=== PATIENT | male | born 1940 | race Caucasian/White ===

== ENCOUNTER 2017-03-13 18:18 | Inpatient (IN) | payer MEDICARE ==
[2017-03-13 18:18] VITALS: BMI 32.3
--- NOTE | 2017-03-13 19:08 | C.PDOC ---
History Of Present Illness Patient is a 76 y/o male that presents to the ED for evaluation of episode of mid sternal chest pain at 14:00 today. Pt reports having similar chest pain 2 days ago which was resolved spontaneously. Pt states pain is constant, non- radiating, and non-excertional. As per family, patient's ultrasound and CT scan was done 2 days ago which showed patient has pancreatic mass, and states patient is scheduled for biopsy on 03/17/17. Family also noticed patient to be jaundiced for the last 4-5 days. Pt also reports some upper abdominal pain, but denies any n/v/d, fever, cough, shortness of breath, or fever. Pt denies taking any OTC meds for pain. Time Seen by Provider: 03/13/17 19:06 Chief Complaint (Nursing): Chest Pain History Per: Patient History/Exam Limitations: no limitations Onset/Duration Of Symptoms: Days (2) Current Symptoms Are (Timing): Still Present Quality: "Pain" Associated Symptoms: denies: Nausea, Dyspnea, Diaphoresis, Syncope Modifying Factors: None Exacerbating Factors: None Alleviating Factors: None Recent travel outside of the [place]: No Additional History Per: Patient Past Medical History Reviewed: Historical Data, Nursing Documentation, Vital Signs Vital Signs: Last Vital Signs Temp 98.1 F 03/21/17 15:12 Pulse 65 03/21/17 18:51 Resp 20 03/21/17 15:12 BP 129/74 03/21/17 18:51 Pulse Ox 97 03/21/17 15:12 - Medical History PMH: HTN Denies: Chronic Kidney Disease - [facility] Procedures CORONAR ARTERIOGR-2 CATH (07/14/13) ENDOSC POLYPECTOMY OF LG INTEST (03/07/15) ESOPHAGOGASTRODUODENOSCOPY [EGD] W/CLOSED BIOPSY (03/07/15) LEFT HEART CARDIAC CATH (07/14/13) LT HEART ANGIOCARDIOGRAM (07/14/13) Family History: States: Unknown Family Hx - Social History Hx Tobacco Use: No Hx Alcohol Use: Yes Hx Substance Use: No - Immunization History Hx Tetanus Toxoid Vaccination: No Hx Influenza Vaccination: No Hx Pneumococcal Vaccination: No Review Of Systems Except As Marked, All Systems Reviewed And Found Negative. Constitutional: Negative for: Fever, Chills Cardiovascular: Positive for: Chest Pain. Negative for: Palpitations, Edema, Light Headedness Respiratory: Negative for: Cough, Shortness of Breath, Sputum Gastrointestinal: Positive for: Abdominal Pain. Negative for: Nausea, Vomiting , Diarrhea, Constipation Genitourinary: Negative for: Dysuria, Frequency, Incontinence, Hematuria Musculoskeletal: Negative for: Back Pain Skin: Negative for: Rash Neurological: Negative for: Weakness, Numbness, Headache, Dizziness Physical Exam - Physical Exam Appears: Non-toxic, No Acute Distress Skin: Warm, Dry, Jaundice Head: Atraumatic, Normacephalic Eye(s): bilateral: Scleral Icterus Neck: Normal ROM, Supple Chest: Symmetrical Cardiovascular: Rhythm Regular, No Murmur Respiratory: Normal Breath Sounds, No Accessory Muscle Use, No Rales, No Rhonchi , No Wheezing Gastrointestinal/Abdominal: Soft, No Tenderness, No Guarding, No Rebound Extremity: Normal ROM, No Deformity Extremity: Bilateral: Atraumatic Neurological/Psych: Oriented x3, Normal Speech, Normal Cognition ED Course And Treatment - Laboratory Results Result Diagrams: 03/21/17 06:29 03/21/17 06:29 ECG: Interpreted By Me, Viewed By Me ECG Rhythm: Sinus Rhythm ECG Interpretation: No Acute Changes Rate From EC (bpm) O2 Sat by Pulse Oximetry: 99 (on RA) Pulse Ox Interpretation: Normal Progress Note: EKG, blood work, urinalysis, CXR ordered and reviewed. Disposition - Disposition Disposition: HOSPITALIZED Disposition Time: 20:18 Condition: STABLE - Clinical Impression Clinical Impression: Chest pain, Biliary obstruction - Scribe Statement The provider has reviewed the documentation as recorded by the Ricky Curiel All medical record entries made by the Jaydenibtessa were at my direction and personally dictated by me. I have reviewed the chart and agree that the record accurately reflects my personal performance of the history, physical exam, medical decision making, and the department course for this patient. I have also personally directed, reviewed, and agree with the discharge instructions and disposition.
[2017-03-13 19:52] LABS: HEMATOCRIT 37.7 % (35.0-51.0); MEAN CELL VOLUME 86.1 fL (80.0-94.0); MEAN CORPUSCULAR HEMOGLOBIN 29.1 pg (27.0-31.0); MEAN CORPUSCULAR HGB CONC 33.8 g/dL (33.0-37.0); MEAN PLATELET VOLUME 9.7 fL (7.2-11.7); PLATELET COUNT 250 K/uL (130-400); RED CELL DISTRIBUTION WIDTH 16.3 % (11.5-14.5); WHITE BLOOD COUNT 7.1 K/uL (4.8-10.8)
[2017-03-13 19:53] LABS: CHLORIDE 92 mmol/L (98-107)
[2017-03-13 19:54] LABS: POTASSIUM 3.8 mmol/L (3.6-5.2); SODIUM 130 mmol/L (132-148)
[2017-03-13 19:55] LABS: INR 1.8
[2017-03-13 19:56] LABS: AST/SGOT 79 U/L (17-59); BLOOD UREA NITROGEN 16 mg/dL (9-20); CARBON DIOXIDE 23 mmol/L (22-30); GFR AFRICAN-AMERICAN > 60; TOTAL PROTEIN 7.9 g/dL (6.3-8.3)
[2017-03-13 19:57] LABS: ALB/GLOB RATIO 0.8 (1.0-2.1); ALKALINE PHOSPHATASE 188 U/L (38-126); ALT/SGPT 87 U/L (21-72); CALCIUM 8.6 mg/dl (8.6-10.4)
[2017-03-13 20:00] LABS: GLUCOSE,RANDOM 409 mg/dL (75-110)
[2017-03-13] MEDS ORDERED: Sodium Chloride 0.9% 1,000 ML IV ONE (20:09)
[2017-03-13 20:11] LABS: BILIRUBIN,TOTAL 27.3 mg/dL (0.2-1.3)
[2017-03-13 20:49] LABS: RBC URINE 1 /hpf (0-3); URINE BACTERIA RARE (<OCC); URINE BILIRUBIN 2+ (NEGATIVE); URINE BLOOD NEGATIVE (NEGATIVE); URINE COLOR Amber (YELLOW); URINE GLUCOSE (UA) 3+ mg/dL (Normal); URINE KETONE NEGATIVE (NEGATIVE); URINE LEUKOCYTE ESTERASE NEG Leu/uL (Negative); URINE PROTEIN NEGATIVE (NEGATIVE); WBC URINE 2 /hpf (0-5)
[2017-03-13 20:59] LABS: BASOPHIL 1 % (0-2); EOSINOPHIL 1 % (0-4); NEUTROPHIL 79 % (50-75); PLATELET CLUMPS PRESENT; TOTAL CELLS COUNTED 100
--- NOTE | 2017-03-13 22:31 | CP.PCM.CON ---
History of Present Illness - History of Present Illness History of Present Illness: 76 Male with Ca/Jaundice planned for Whipples surgery at [facility] Stress test and ECHO as a part of pre op cardiac work up Orders written Past Patient History - Past Medical History & Family History Past Medical History?: Yes - Past Social History Smoking Status: Never Smoked - CARDIAC Hx Hypertension: Yes - PULMONARY Hx Respiratory Disorders: No - NEUROLOGICAL Hx Neurological Disorder: Yes HX Cerebrovascular Accident: Yes (MILD, NO RESIDUAL EFFECTS) - HEENT Hx HEENT Problems: No - RENAL Hx Chronic Kidney Disease: No - ENDOCRINE/METABOLIC Hx Endocrine Disorders: No - HEMATOLOGICAL/ONCOLOGICAL Hx Blood Disorders: No - INTEGUMENTARY Hx Dermatological Problems: No - MUSCULOSKELETAL/RHEUMATOLOGICAL Hx Musculoskeletal Disorders: No - GASTROINTESTINAL Hx Gastrointestinal Disorders: Yes Hx Ulcer: Yes Other/Comment: Pancreatic mass as per CT abdomen 03/11/2017 - GENITOURINARY/GYNECOLOGICAL Hx Genitourinary Disorders: No - PSYCHIATRIC Hx Substance Use: No - SURGICAL HISTORY Hx Surgeries: Yes Hx Herniorrhaphy: Yes (LEFT INGUINAL) - ANESTHESIA Hx Anesthesia: Yes Hx Anesthesia Reactions: No Hx Malignant Hyperthermia: No Meds Allergies/Adverse Reactions: Allergies Allergy/AdvReac Type Severity Reaction Status Date / Time No Known Allergies Allergy Verified 03/13/17 18:34 - Medications Medications: Current Medications Amlodipine Besylate (Norvasc) 10 mg PO DAILY [facility] Enoxaparin Sodium (Lovenox) 40 mg SC DAILY [facility] Sodium Chloride (Sodium Chloride 0.9%) 1,000 mls @ 100 mls/hr IV .Q10H [facility] Insulin Aspart (Novolog) 0 unit SC ACHS [facility] PRN Reason: Protocol Labetalol HCl (Trandate) 200 mg PO BID [facility] Multivitamins (Hexavitamin) 1 tab PO DAILY [facility] Pantoprazole Sodium (Protonix Ec Tab) 40 mg PO DAILY [facility] Phytonadione (Vitamin K Tab) 5 mg PO DAILY [facility] Stop: 03/17/17 23:59 Results - Vital Signs Recent Vital Signs: Last Vital Signs Temp 98 F 03/13/17 22:19 Pulse 86 03/13/17 22:19 Resp 16 03/13/17 22:19 BP 161/100 H 03/13/17 22:19 Pulse Ox 99 03/13/17 22:19 - Labs Result Diagrams: 03/13/17 19:39 03/13/17 19:39 Labs: Laboratory Results - last 24 hr 03/13/17 20:36 Urine Color Sonya Urine Clarity Clear Urine pH 6.0 Ur Specific [place] 1.015 Urine Protein Negative Urine Glucose (UA) 3+ H Urine Ketones Negative Urine Blood Negative Urine Nitrate Negative Urine Bilirubin 2+ H Urine Urobilinogen 2.0 Ur Leukocyte Esterase Neg Urine WBC (Auto) 2 Urine RBC (Auto) 1 Urine Bacteria Rare
[2017-03-13] MEDS: Sodium Chloride 0.9% 1,000 ML IV SCH (23:10)
--- NOTE | 2017-03-13 23:11 | CP.PCM.HP ---
History of Present Illness - History of Present Illness History of Present Illness: Patient is a 76 y/o male that presents to the ED for evaluation of episode of mid sternal chest pain at 14:00 today. Pt reports having similar chest pain 2 days ago which was resolved spontaneously. Pt states pain is constant, non- radiating, and non-excertional. As per family, patient's ultrasound and CT scan was done 2 days ago which showed patient has pancreatic mass, and states patient is scheduled for biopsy on 03/17/17. Family also noticed patient to be jaundiced for the last 4-5 days. Pt also reports some upper abdominal pain, but denies any n/v/d, fever, cough, shortness of breath, or fever. Pt denies taking any OTC meds for pain. Present on Admission - Present on Admission Any Indicators Present on Admission: Yes Past Patient History - Past Medical History & Family History Past Medical History?: Yes - Past Social History Smoking Status: Never Smoked - CARDIAC Hx Hypertension: Yes - PULMONARY Hx Respiratory Disorders: No - NEUROLOGICAL Hx Neurological Disorder: Yes HX Cerebrovascular Accident: Yes (MILD, NO RESIDUAL EFFECTS) - HEENT Hx HEENT Problems: No - RENAL Hx Chronic Kidney Disease: No - ENDOCRINE/METABOLIC Hx Endocrine Disorders: No - HEMATOLOGICAL/ONCOLOGICAL Hx Blood Disorders: No - INTEGUMENTARY Hx Dermatological Problems: No - MUSCULOSKELETAL/RHEUMATOLOGICAL Hx Musculoskeletal Disorders: No - GASTROINTESTINAL Hx Gastrointestinal Disorders: Yes Hx Ulcer: Yes Other/Comment: Pancreatic mass as per CT abdomen 03/11/2017 - GENITOURINARY/GYNECOLOGICAL Hx Genitourinary Disorders: No - PSYCHIATRIC Hx Substance Use: No - SURGICAL HISTORY Hx Surgeries: Yes Hx Herniorrhaphy: Yes (LEFT INGUINAL) - ANESTHESIA Hx Anesthesia: Yes Hx Anesthesia Reactions: No Hx Malignant Hyperthermia: No Meds Allergies/Adverse Reactions: Allergies Allergy/AdvReac Type Severity Reaction Status Date / Time No Known Allergies Allergy Verified 03/13/17 18:34 Results - Vital Signs Recent Vital Signs: Last Vital Signs Temp 98 F 03/13/17 22:19 Pulse 86 03/13/17 22:19 Resp 16 03/13/17 22:19 BP 161/100 H 03/13/17 22:19 Pulse Ox 100 03/13/17 22:25 - Labs Result Diagrams: 03/17/17 05:56 03/17/17 05:56 Labs: Laboratory Results - last 24 hr 03/13/17 20:36 Urine Color Sonya Urine Clarity Clear Urine pH 6.0 Ur Specific [place] 1.015 Urine Protein Negative Urine Glucose (UA) 3+ H Urine Ketones Negative Urine Blood Negative Urine Nitrate Negative Urine Bilirubin 2+ H Urine Urobilinogen 2.0 Ur Leukocyte Esterase Neg Urine WBC (Auto) 2 Urine RBC (Auto) 1 Urine Bacteria Rare
[2017-03-14 02:01] LABS: BILIRUBIN,DIRECT 23.8 mg/dL (0.0-0.4)
[2017-03-14 02:27] LABS: CA 19-9 > 5000 U/mL (0-37)
[2017-03-14] MEDS: (Novolog) Insulin Aspart, Recombinant 100 u/ml 10 ml vial SC SCH ×4 (07:30→21:07)
--- NOTE | 2017-03-14 07:48 | RAD ---
HISTORY: Chest pain COMPARISON: 05/04/2013 FINDINGS: LUNGS: No active pulmonary disease. PLEURA: No significant pleural effusion identified, no pneumothorax apparent. CARDIOVASCULAR: Normal. OSSEOUS STRUCTURES: No significant abnormalities. VISUALIZED UPPER ABDOMEN: Normal. OTHER FINDINGS: None. IMPRESSION: No active disease.
[2017-03-14] MEDS: Sodium Chloride 0.9% 1,000 ML IV SCH ×2 (08:15→21:07)
[2017-03-14] MEDS: Multiple Vitamins Tab PO SCH (10:17)
[2017-03-14] MEDS: Pantoprazole 40 mg EC Tab PO SCH (10:17)
[2017-03-14] MEDS: Phytonadione 2.5 MG/0.5 TAB TAB PO SCH (10:18)
[2017-03-14] MEDS: Enoxaparin 40 mg Syringe SC SCH (10:18)
--- NOTE | 2017-03-14 11:02 | CARD ---
APPROVED REPORT EKG Measurement Heart [id number] <Conclusion> Normal sinus rhythm Normal ECG
--- NOTE | 2017-03-14 15:14 | NM ---
PROCEDURE: Whole Body Bone Scan HISTORY: Pancreatic Mass COMPARISON: None available. TECHNIQUE: Following administration of 23.3 miCu of Tc MDP multiplanar whole body images were obtained. FINDINGS: Evidence for bony metastatic disease: None. Degenerative uptake: None. Physiologic uptake: Normal physiologic activity in the kidneys. Other findings: Asymmetric uptake in the right hemipelvis compared to the left the overall appearance suggests Paget disease. IMPRESSION: No evidence of bony metastatic disease.
--- NOTE | 2017-03-14 16:27 | CP.PCM.CON ---
<Amarilis Nieto - Last Filed: 03/14/17 16:27> History of Present Illness - History of Present Illness History of Present Illness: GI Fellow PGY4 Consult Note This is a 76yM with a pmhx of HTN, DM, Gastric ulcer/gastritis H.pylori positive 2014. Pt pw co chest pain and abdominal pain. Pt reports abdominal discomfort for 2 weeks but no abdominal pain, no F/C. Also pt noticed he was jaundiced and getting worse over 2weeks. Pt reports unintentional 30 pound weight loss over a few months with no appetite. Pt's mother from pancreatic cancer. Pt denies tobacco use and reprts that he drank 4 cans of bee daily for many years and quit years ago. Abdominal Us and CT scan was ordered by PCP showing intrahepatic duct dilation, CBD 13mm, pancreatic head mass 4.5x2.9 cm and fatty liver. Pt's last EGD and Colonoscopy was 03/07/2015 showing gastritis, gastric ulcer Hpylori positive and tubulovillous adenoma. ROS:A 12 point ROS was obtained and was negative except as above. PsHx: Hernia repair PmHx: As stated in HPI FHx: +pancreatic cancer in mother ho SHx: never smoked, drank 4 cans of beer daily for years, quit many years ago Past Patient History - Past Medical History & Family History Past Medical History?: Yes - Past Social History Smoking Status: Never Smoked - CARDIAC Hx Hypertension: Yes - PULMONARY Hx Respiratory Disorders: No - NEUROLOGICAL HX Cerebrovascular Accident: Yes (MILD, NO RESIDUAL EFFECTS) - HEENT Hx HEENT Problems: No - RENAL Hx Chronic Kidney Disease: No - ENDOCRINE/METABOLIC Hx Endocrine Disorders: No - HEMATOLOGICAL/ONCOLOGICAL Hx Blood Disorders: No - INTEGUMENTARY Hx Dermatological Problems: No - MUSCULOSKELETAL/RHEUMATOLOGICAL Hx Musculoskeletal Disorders: No Hx Falls: No - GASTROINTESTINAL Hx Gastrointestinal Disorders: Yes Hx Ulcer: Yes Other/Comment: Pancreatic mass as per CT abdomen 03/11/2017 - GENITOURINARY/GYNECOLOGICAL Hx Genitourinary Disorders: No - PSYCHIATRIC Hx Substance Use: No - SURGICAL HISTORY Hx Surgeries: Yes Hx Herniorrhaphy: Yes (LEFT INGUINAL) - ANESTHESIA Hx Anesthesia: Yes Hx Anesthesia Reactions: No Hx Malignant Hyperthermia: No Meds Allergies/Adverse Reactions: Allergies Allergy/AdvReac Type Severity Reaction Status Date / Time No Known Allergies Allergy Verified 03/13/17 18:34 - Medications Medications: Current Medications Amlodipine Besylate (Norvasc) 10 mg PO DAILY [facility] Last Admin: 03/14/17 10:18 Dose: 10 mg Enoxaparin Sodium (Lovenox) 40 mg SC DAILY [facility] Last Admin: 03/14/17 10:18 Dose: 40 mg Sodium Chloride (Sodium Chloride 0.9%) 1,000 mls @ 100 mls/hr IV .Q10H [facility] Last Admin: 03/14/17 08:15 Dose: Not Given Insulin Aspart (Novolog) 0 unit SC [facility] PRN Reason: Protocol Last Admin: 03/14/17 13:24 Dose: 5 unit Labetalol HCl (Trandate) 200 mg PO BID [facility] Last Admin: 03/14/17 10:17 Dose: 200 mg Multivitamins (Hexavitamin) 1 tab PO DAILY [facility] Last Admin: 03/14/17 10:17 Dose: 1 tab Pantoprazole Sodium (Protonix Ec Tab) 40 mg PO DAILY [facility] Last Admin: 03/14/17 10:17 Dose: 40 mg Phytonadione (Vitamin K Tab) 5 mg PO DAILY [facility] Stop: 03/17/17 23:59 Last Admin: 03/14/17 10:18 Dose: 5 mg Pneumococcal Polyvalent Vaccine (Pneumovax 23 Vaccine) 0.5 ml IM .ONCE ONE Stop: 03/16/17 10:01 Physical Exam - Constitutional Appears: Well, Non-toxic, No Acute Distress Additional comments: Jaundiced - Head Exam Head Exam: ATRAUMATIC, NORMAL INSPECTION, NORMOCEPHALIC - Eye Exam Eye Exam: EOMI, PERRL, Scleral icterus Pupil Exam: PERRL - ENT Exam ENT Exam: Mucous Membranes Moist, Normal Exam - Neck Exam Neck exam: Positive for: Full Rom, Normal Inspection - Respiratory Exam Respiratory Exam: Clear to Auscultation Bilateral, NORMAL BREATHING PATTERN - Cardiovascular Exam Cardiovascular Exam: RRR, +S1, +S2 - GI/Abdominal Exam GI & Abdominal Exam: Normal Bowel Sounds, Soft. absent: Guarding, Organomegaly , Rebound, Tenderness - Rectal Exam Rectal Exam: Deferred - Extremities Exam Extremities exam: Positive for: full ROM - Neurological Exam Neurological exam: Alert - Psychiatric Exam Psychiatric exam: Normal Affect, Normal Mood - Skin Skin Exam: Dry, Intact, Warm Additional comments: Jaundice Results - Vital Signs Recent Vital Signs: Last Vital Signs Temp 98.0 F 03/14/17 15:12 Pulse 60 03/14/17 15:12 Resp 20 03/14/17 15:12 BP 135/82 03/14/17 15:12 Pulse Ox 97 03/14/17 15:12 - Labs Result Diagrams: 03/13/17 19:39 03/13/17 19:39 Labs: Laboratory Results - last 24 hr 03/13/17 03/13/17 03/14/17 20:36 23:22 00:34 POC Glucose (mg/dL) 235 H Hemoglobin A1c Direct Bilirubin 23.8 H Total Creatine Kinase CK-MB (Mass) Troponin I, Quant CA 19-9 Antigen > 5000 H Urine Color Sonya Urine Clarity Clear Urine pH 6.0 Ur Specific [place] 1.015 Urine Protein Negative Urine Glucose (UA) 3+ H Urine Ketones Negative Urine Blood Negative Urine Nitrate Negative Urine Bilirubin 2+ H Urine Urobilinogen 2.0 Ur Leukocyte Esterase Neg Urine WBC (Auto) 2 Urine RBC (Auto) 1 Urine Bacteria Rare 03/14/17 03/14/17 03/14/17 00:34 06:12 08:34 POC Glucose (mg/dL) 180 H Hemoglobin A1c 11.4 H Direct Bilirubin Total Creatine Kinase 37 L CK-MB (Mass) 0.56 Troponin I, Quant < 0.0120 CA 19-9 Antigen Urine Color Urine Clarity Urine pH Ur Specific [place] Urine Protein Urine Glucose (UA) Urine Ketones Urine Blood Urine Nitrate Urine Bilirubin Urine Urobilinogen Ur Leukocyte Esterase Urine WBC (Auto) Urine RBC (Auto) Urine Bacteria 03/14/17 11:41 POC Glucose (mg/dL) 372 H Hemoglobin A1c Direct Bilirubin Total Creatine Kinase CK-MB (Mass) Troponin I, Quant CA 19-9 Antigen Urine Color Urine Clarity Urine pH Ur Specific [place] Urine Protein Urine Glucose (UA) Urine Ketones Urine Blood Urine Nitrate Urine Bilirubin Urine Urobilinogen Ur Leukocyte Esterase Urine WBC (Auto) Urine RBC (Auto) Urine Bacteria Assessment & Plan - Assessment and Plan (Free Text) Assessment: This is a 76yM with pmhx HTN, DM, gastric ulcer pw co abdominal bloating and jaundice 1. Pancreatic Head Mass 2. Painless Jaundice 3. Hyperbilirubinemia 4. Dilated CBD 5. Hx of Gastric ulcer, Hpylori 6. HTN 7. DM Plan: -Panreatic head mass with painless jaundice concern for malignancy, CA 19-9>5000 , TBili 27-plan for ERCP/EUS Friday03/17/17 -Will give Vit K 5mg po daily till procedure, INR 1.8 -Monitor for any signs of fever or leukocytosis, no signs of active infection at this time -Continue supportive care, plan discussed with pt's daughter - <Benito Choe - Last Filed: 03/14/17 18:51> Meds - Medications Medications: Current Medications Amlodipine Besylate (Norvasc) 10 mg PO DAILY [facility] Last Admin: 03/14/17 10:18 Dose: 10 mg Diphenhydramine HCl (Benadryl) 25 mg PO Q6 PRN PRN Reason: Itching / Pruritus Last Admin: 03/14/17 17:19 Dose: 25 mg Enoxaparin Sodium (Lovenox) 40 mg SC DAILY [facility] Last Admin: 03/14/17 10:18 Dose: 40 mg Sodium Chloride (Sodium Chloride 0.9%) 1,000 mls @ 100 mls/hr IV .Q10H [facility] Last Admin: 03/14/17 08:15 Dose: Not Given Insulin Aspart (Novolog) 0 unit SC ACHS [facility] PRN Reason: Protocol Last Admin: 03/14/17 17:21 Dose: 5 unit Labetalol HCl (Trandate) 200 mg PO BID [facility] Last Admin: 03/14/17 17:19 Dose: 200 mg Multivitamins (Hexavitamin) 1 tab PO DAILY [facility] Last Admin: 03/14/17 10:17 Dose: 1 tab Pantoprazole Sodium (Protonix Ec Tab) 40 mg PO DAILY [facility] Last Admin: 03/14/17 10:17 Dose: 40 mg Phytonadione (Vitamin K Tab) 5 mg PO DAILY [facility] Stop: 03/17/17 23:59 Last Admin: 03/14/17 10:18 Dose: 5 mg Pneumococcal Polyvalent Vaccine (Pneumovax 23 Vaccine) 0.5 ml IM .ONCE ONE Stop: 03/16/17 10:01 Results - Vital Signs Recent Vital Signs: Last Vital Signs Temp 98.0 F 03/14/17 15:12 Pulse 57 L 03/14/17 15:40 Resp 20 03/14/17 15:12 BP 135/82 03/14/17 15:12 Pulse Ox 97 03/14/17 15:12 - Labs Result Diagrams: 03/13/17 19:39 03/13/17 19:39 Labs: Laboratory Results - last 24 hr 03/13/17 03/13/17 03/14/17 20:36 23:22 00:34 POC Glucose (mg/dL) 235 H Hemoglobin A1c Direct Bilirubin 23.8 H Total Creatine Kinase CK-MB (Mass) Troponin I, Quant [place] 19-9 Antigen > 5000 H Urine Color Sonya Urine Clarity Clear Urine pH 6.0 Ur Specific [place] 1.015 Urine Protein Negative Urine Glucose (UA) 3+ H Urine Ketones Negative Urine Blood Negative Urine Nitrate Negative Urine Bilirubin 2+ H Urine Urobilinogen 2.0 Ur Leukocyte Esterase Neg Urine WBC (Auto) 2 Urine RBC (Auto) 1 Urine Bacteria Rare 03/14/17 03/14/17 03/14/17 00:34 06:12 08:34 POC Glucose (mg/dL) 180 H Hemoglobin A1c 11.4 H Direct Bilirubin Total Creatine Kinase 37 L CK-MB (Mass) 0.56 Troponin I, Quant < 0.0120 CA 19-9 Antigen Urine Color Urine Clarity Urine pH Ur Specific [place] Urine Protein Urine Glucose (UA) Urine Ketones Urine Blood Urine Nitrate Urine Bilirubin Urine Urobilinogen Ur Leukocyte Esterase Urine WBC (Auto) Urine RBC (Auto) Urine Bacteria 03/14/17 03/14/17 03/14/17 11:41 16:36 17:24 POC Glucose (mg/dL) 372 H 352 H Hemoglobin A1c Direct Bilirubin Total Creatine Kinase 29 L CK-MB (Mass) 0.79 Troponin I, Quant < 0.0120 CA 19-9 Antigen Urine Color Urine Clarity Urine pH Ur Specific [place] Urine Protein Urine Glucose (UA) Urine Ketones Urine Blood Urine Nitrate Urine Bilirubin Urine Urobilinogen Ur Leukocyte Esterase Urine WBC (Auto) Urine RBC (Auto) Urine Bacteria Attending/Attestation - Attestation I have personally seen and examined this patient.: Yes I have fully participated in the care of the patient.: Yes I have reviewed all pertinent clinical information: Yes Notes (Text): 03/14/17 18:46 76 year old male with h/o DM, HTN, h/o PUD admitted with jaundice, found to have pancreatic head mass and biliary obstruction. 1. Pancreatic mass 2. Biliary obstruction Plan: -overall clinical picture suggestive of likely locally advanced pancreatic adenocarcinoma -recommend EUS and ERCP for biopsy and stent placement -will plan for procedure friday morning -in the meantime, he needs medical optimization with management of significant hyperglycemia (>400) and reversal of INR (1.8) with vitamin K -his elevated INR is likely due to cholestasis and vitamin k deficiency -diet as tolerated in the meantime -pain control as needed -no signs of cholangitis at this time
--- NOTE | 2017-03-14 23:04 | CP.PCM.PN ---
Subjective - Date & Time of Evaluation Date of Evaluation: 03/14/17 Time of Evaluation: 18:00 - Subjective Subjective: Patient seen and evaluated Comfortable For stress test Friday Objective - Vital Signs/Intake and Output Vital Signs (last 24 hours): Temp Pulse Resp BP Pulse Ox 98.0 F 57 L 20 135/82 97 03/14/17 15:12 03/14/17 15:40 03/14/17 15:12 03/14/17 15:12 03/14/17 15:12 Intake and Output: 03/14/17 03/15/17 18:59 06:59 Intake Total 300 Balance 300 - Medications Medications: Current Medications Amlodipine Besylate (Norvasc) 10 mg PO DAILY [facility] Last Admin: 03/14/17 10:18 Dose: 10 mg Diphenhydramine HCl (Benadryl) 25 mg PO Q6 PRN PRN Reason: Itching / Pruritus Last Admin: 03/14/17 17:19 Dose: 25 mg Enoxaparin Sodium (Lovenox) 40 mg SC DAILY [facility] Last Admin: 03/14/17 10:18 Dose: 40 mg Sodium Chloride (Sodium Chloride 0.9%) 1,000 mls @ 100 mls/hr IV .Q10H [facility] Last Admin: 03/14/17 21:07 Dose: Not Given Insulin Aspart (Novolog) 0 unit SC ACHS [facility] PRN Reason: Protocol Last Admin: 03/14/17 21:07 Dose: Not Given Labetalol HCl (Trandate) 200 mg PO BID [facility] Last Admin: 03/14/17 17:19 Dose: 200 mg Multivitamins (Hexavitamin) 1 tab PO DAILY [facility] Last Admin: 03/14/17 10:17 Dose: 1 tab Pantoprazole Sodium (Protonix Ec Tab) 40 mg PO DAILY [facility] Last Admin: 03/14/17 10:17 Dose: 40 mg Phytonadione (Vitamin K Tab) 5 mg PO DAILY [facility] Stop: 03/17/17 23:59 Last Admin: 03/14/17 10:18 Dose: 5 mg Pneumococcal Polyvalent Vaccine (Pneumovax 23 Vaccine) 0.5 ml IM .ONCE ONE Stop: 03/16/17 10:01 - Labs Labs: PT 20.1 SECONDS (9.7-12.2) H 03/13/17 19:39 INR 1.8 03/13/17 19:39 APTT 37 SECONDS (21-34) H 03/13/17 19:39
--- NOTE | 2017-03-14 23:09 | CP.PCM.PN ---
Subjective - Date & Time of Evaluation Date of Evaluation: 03/14/17 Time of Evaluation: 20:50 - Subjective Subjective: Pt seen and examined Objective - Vital Signs/Intake and Output Vital Signs (last 24 hours): Temp Pulse Resp BP Pulse Ox 98.0 F 57 L 20 135/82 97 03/14/17 15:12 03/14/17 15:40 03/14/17 15:12 03/14/17 15:12 03/14/17 15:12 Intake and Output: 03/14/17 03/15/17 18:59 06:59 Intake Total 300 Balance 300 - Medications Medications: Current Medications Amlodipine Besylate (Norvasc) 10 mg PO DAILY [facility] Last Admin: 03/14/17 10:18 Dose: 10 mg Diphenhydramine HCl (Benadryl) 25 mg PO Q6 PRN PRN Reason: Itching / Pruritus Last Admin: 03/14/17 17:19 Dose: 25 mg Enoxaparin Sodium (Lovenox) 40 mg SC DAILY [facility] Last Admin: 03/14/17 10:18 Dose: 40 mg Sodium Chloride (Sodium Chloride 0.9%) 1,000 mls @ 100 mls/hr IV .Q10H [facility] Last Admin: 03/14/17 21:07 Dose: Not Given Insulin Aspart (Novolog) 0 unit SC ACHS [facility] PRN Reason: Protocol Last Admin: 03/14/17 21:07 Dose: Not Given Labetalol HCl (Trandate) 200 mg PO BID [facility] Last Admin: 03/14/17 17:19 Dose: 200 mg Multivitamins (Hexavitamin) 1 tab PO DAILY [facility] Last Admin: 03/14/17 10:17 Dose: 1 tab Pantoprazole Sodium (Protonix Ec Tab) 40 mg PO DAILY [facility] Last Admin: 03/14/17 10:17 Dose: 40 mg Phytonadione (Vitamin K Tab) 5 mg PO DAILY [facility] Stop: 03/17/17 23:59 Last Admin: 03/14/17 10:18 Dose: 5 mg Pneumococcal Polyvalent Vaccine (Pneumovax 23 Vaccine) 0.5 ml IM .ONCE ONE Stop: 03/16/17 10:01 - Labs Labs: PT 20.1 SECONDS (9.7-12.2) H 03/13/17 19:39 INR 1.8 03/13/17 19:39 APTT 37 SECONDS (21-34) H 03/13/17 19:39
[2017-03-15] MEDS: Sodium Chloride 0.9% 1,000 ML IV SCH ×2 (04:37→12:15)
[2017-03-15] MEDS: (Novolog) Insulin Aspart, Recombinant 100 u/ml 10 ml vial SC SCH ×4 (07:30→21:38)
[2017-03-15 07:42] LABS: HEMATOCRIT 35.9 % (35.0-51.0); MEAN CELL VOLUME 85.6 fL (80.0-94.0); MEAN CORPUSCULAR HEMOGLOBIN 29.3 pg (27.0-31.0); MEAN CORPUSCULAR HGB CONC 34.3 g/dL (33.0-37.0); MEAN PLATELET VOLUME 9.9 fL (7.2-11.7); RED CELL DISTRIBUTION WIDTH 16.5 % (11.5-14.5); WHITE BLOOD COUNT 8.8 K/uL (4.8-10.8)
[2017-03-15 08:28] LABS: CHLORIDE 102 mmol/L (98-107); SODIUM 139 mmol/L (132-148)
[2017-03-15 08:30] LABS: ALB/GLOB RATIO 0.7 (1.0-2.1); AST/SGOT 76 U/L (17-59); BILIRUBIN,TOTAL 25.5 mg/dL (0.2-1.3); CARBON DIOXIDE 19 mmol/L (22-30); GFR AFRICAN-AMERICAN > 60; TOTAL PROTEIN 7.1 g/dL (6.3-8.3)
[2017-03-15 08:31] LABS: ALKALINE PHOSPHATASE 163 U/L (38-126); ALT/SGPT 86 U/L (21-72); BLOOD UREA NITROGEN 15 mg/dL (9-20); CALCIUM 8.7 mg/dl (8.6-10.4); GLUCOSE,RANDOM 120 mg/dL (75-110)
[2017-03-15 08:33] LABS: POTASSIUM 3.4 mmol/L (3.6-5.2)
[2017-03-15] MEDS: Pantoprazole 40 mg EC Tab PO SCH (09:17)
[2017-03-15] MEDS: Enoxaparin 40 mg Syringe SC SCH (09:18)
[2017-03-15] MEDS: Multiple Vitamins Tab PO SCH (09:18)
[2017-03-15] MEDS: Phytonadione 2.5 MG/0.5 TAB TAB PO SCH (09:19)
--- NOTE | 2017-03-15 12:10 | CP.PCM.PN ---
<Jace Mcmillan - Last Filed: 03/15/17 12:06> Subjective - Date & Time of Evaluation Date of Evaluation: 03/15/17 Time of Evaluation: 10:50 - Subjective Subjective: PGY5 GI Fellow Progress Note Patient seen and examined bedside this morning. The patient has no new complaints at this time. Denies any nausea, vomiting, abdominal pain, fever, chills. No events overnight. 12 system ROS performed and negative except where stated. Objective - Vital Signs/Intake and Output Vital Signs (last 24 hours): Temp Pulse Resp BP Pulse Ox 98.1 F 59 L 18 122/70 100 03/15/17 07:05 03/15/17 07:30 03/15/17 07:05 03/15/17 07:05 03/15/17 07:05 - Medications Medications: Current Medications Amlodipine Besylate (Norvasc) 10 mg PO DAILY [facility] Last Admin: 03/15/17 09:17 Dose: 10 mg Diphenhydramine HCl (Benadryl) 25 mg PO Q6 PRN PRN Reason: Itching / Pruritus Last Admin: 03/14/17 17:19 Dose: 25 mg Enoxaparin Sodium (Lovenox) 40 mg SC DAILY [facility] Last Admin: 03/15/17 09:18 Dose: 40 mg Sodium Chloride (Sodium Chloride 0.9%) 1,000 mls @ 100 mls/hr IV .Q10H [facility] Last Admin: 03/15/17 04:37 Dose: Not Given Insulin Aspart (Novolog) 0 unit SC ACHS [facility] PRN Reason: Protocol Last Admin: 03/15/17 07:30 Dose: Not Given Labetalol HCl (Trandate) 200 mg PO BID [facility] Last Admin: 03/15/17 09:18 Dose: 200 mg Multivitamins (Hexavitamin) 1 tab PO DAILY [facility] Last Admin: 03/15/17 09:18 Dose: 1 tab Pantoprazole Sodium (Protonix Ec Tab) 40 mg PO DAILY [facility] Last Admin: 03/15/17 09:17 Dose: 40 mg Phytonadione (Vitamin K Tab) 5 mg PO DAILY [facility] Stop: 03/17/17 23:59 Last Admin: 03/15/17 09:19 Dose: 5 mg Pneumococcal Polyvalent Vaccine (Pneumovax 23 Vaccine) 0.5 ml IM .ONCE ONE Stop: 03/16/17 10:01 - Labs Labs: 03/15/17 07:28 03/15/17 07:28 PT 20.1 SECONDS (9.7-12.2) H 03/13/17 19:39 INR 1.8 03/13/17 19:39 APTT 37 SECONDS (21-34) H 03/13/17 19:39 - Constitutional Appears: Non-toxic, No Acute Distress - Eye Exam Eye Exam: EOMI, PERRL, Scleral icterus - ENT Exam ENT Exam: Mucous Membranes Moist - Respiratory Exam Respiratory Exam: Clear to Ausculation Bilateral. absent: Rales, Rhonchi, Wheezes - Cardiovascular Exam Cardiovascular Exam: RRR, +S1, +S2 - GI/Abdominal Exam GI & Abdominal Exam: Soft, Normal Bowel Sounds. absent: Distended, Firm, Guarding, Rigid, Tenderness, Organomegaly - Extremities Exam Extremities Exam: Normal Inspection. 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 -Pancreatic mass -Biliary obstruction 2/2 above Plan: -Current condition highly suspicious for pancreatic cancer with biliary obstruction -Will plan for EUS/ERCP on Friday with biopsy/stent placement at that time -Continue with daily Vit K, consider IV infusion if INR unchange with PO; likely a result of cholestasis and poor Vit K absorption -Analgesia/antiemetics PRN per primary service -Diet as tolerated <Karen Orta MD - Last Filed: 03/15/17 15:46> Objective - Vital Signs/Intake and Output Vital Signs (last 24 hours): Temp Pulse Resp BP Pulse Ox 98.1 F 59 L 18 122/70 100 03/15/17 07:05 03/15/17 07:30 03/15/17 07:05 03/15/17 07:05 03/15/17 07:05 - Medications Medications: Current Medications Amlodipine Besylate (Norvasc) 10 mg PO DAILY [facility] Last Admin: 03/15/17 09:17 Dose: 10 mg Diphenhydramine HCl (Benadryl) 25 mg PO Q6 PRN PRN Reason: Itching / Pruritus Last Admin: 03/14/17 17:19 Dose: 25 mg Enoxaparin Sodium (Lovenox) 40 mg SC DAILY [facility] Last Admin: 03/15/17 09:18 Dose: 40 mg Sodium Chloride (Sodium Chloride 0.9%) 1,000 mls @ 100 mls/hr IV .Q10H [facility] Last Admin: 03/15/17 12:15 Dose: 100 mls/hr Insulin Aspart (Novolog) 0 unit SC ACHS [facility] PRN Reason: Protocol Last Admin: 03/15/17 13:09 Dose: 2 unit Labetalol HCl (Trandate) 200 mg PO BID [facility] Last Admin: 03/15/17 09:18 Dose: 200 mg Multivitamins (Hexavitamin) 1 tab PO DAILY [facility] Last Admin: 03/15/17 09:18 Dose: 1 tab Pantoprazole Sodium (Protonix Ec Tab) 40 mg PO DAILY [facility] Last Admin: 03/15/17 09:17 Dose: 40 mg Phytonadione (Vitamin K Tab) 5 mg PO DAILY [facility] Stop: 03/17/17 23:59 Last Admin: 03/15/17 09:19 Dose: 5 mg Pneumococcal Polyvalent Vaccine (Pneumovax 23 Vaccine) 0.5 ml IM .ONCE ONE Stop: 03/16/17 10:01 - Labs Labs: 03/15/17 07:28 03/15/17 07:28 PT 20.1 SECONDS (9.7-12.2) H 03/13/17 19:39 INR 1.8 03/13/17 19:39 APTT 37 SECONDS (21-34) H 03/13/17 19:39 Attending/Attestation - Attestation I have personally seen and examined this patient.: Yes I have fully participated in the care of the patient.: Yes I have reviewed all pertinent clinical information, including history, physical exam and plan: Yes Notes (Text): 03/15/17 15:42 Patient seen and examined at bedside on GI rounds. This is a 76 year old male with h/o DM, HTN, h/o PUD admitted with jaundice, found to have pancreatic head mass and biliary obstruction. Scheduled for EUS with biopsy and ERCP for next week. Optimize blood sugar and coagulopathy to goal INR 1.5. Diet as tolerated. No s/s of cholangitis
[2017-03-15] MEDS ORDERED: Potassium Chloride 20 mEq/15 ml LIQ UD PO STA (14:16)
--- NOTE | 2017-03-15 14:45 | CARD ---
APPROVED REPORT EXAM: Two-dimensional and M-mode echocardiogram with Doppler and color Doppler. Other Information Quality : LimitedRhythm : NSR INDICATION Pre-Op Chest Pain OBSTRUCTIVE JAUNDICE RISK FACTORS Hypertension M-Mode DIMENSIONS RVDd1.80 (2.1-3.2cm)Left Atrium (MM)2.67 (2.5-4.0cm) IVSd1.08 (0.7-1.1cm)Aortic Root4.10 (2.2-3.7cm) LVDd5.10 (4.0-5.6cm)Aortic Cusp Exc.2.60 (1.5-2.0cm) PWd0.90 (0.7-1.1cm)FS (%) 54 % LVDs2.36 (2.0-3.8cm)LVEF (%)84 (>50%) Aortic Valve AI P 1/2 [id number] Mitral Valve MV E Fdrrkidl38.1cm/sMV A Gcextwdw20.7cm/sE/A ratio0.5 TDI E/Lateral E'0.0E/Medial E'0.0 Tricuspid Valve TR Peak Qzyduuqh277dd/sTR Peak Gr.[id number] LEFT VENTRICLE The left ventricle is normal size. There is normal left ventricular wall thickness. The left ventricular function is normal. The left ventricular ejection fraction is within the normal range. No regional wall motion abnormalities noted. Transmitral Doppler flow pattern is Grade I-abnormal relaxation pattern. No left ventricle thrombus noted on this study. There is no ventricular septal defect visualized. There is no left ventricular aneurysm. There is no mass noted in the left ventricle. RIGHT VENTRICLE The right ventricle is normal size. There is normal right ventricular wall thickness. The right ventricular systolic function is normal. ATRIA The left atrium size is normal. The right atrium size is normal. The interatrial septum is intact with no evidence for an atrial septal defect. AORTIC VALVE The aortic valve is normal in structure and function. There is mild aortic regurgitation. There is no aortic valvular stenosis. There is no aortic valvular vegetation. MITRAL VALVE The mitral valve is normal in structure and function. There is no evidence of mitral valve prolapse. There is no mitral valve stenosis. There is no mitral valve regurgitation noted. TRICUSPID VALVE The tricuspid valve is normal in structure and function. There is mild tricuspid regurgitation. Right ventricular systolic pressure is estimated at 30-40 mmHg. There is no tricuspid valve prolapse or vegetation. There is no tricuspid valve stenosis. PULMONIC VALVE The pulmonary valve is normal in structure and function. There is mild to moderate pulmonic valvular regurgitation. . There is no pulmonic valvular stenosis. GREAT VESSELS The aortic root is mildly enlarged. The ascending aorta is normal in size. The pulmonary artery is normal. The IVC is normal in size and collapses >50% with inspiration. PERICARDIAL EFFUSION The pericardium appears normal. There is no pleural effusion. <Conclusion> The left ventricular function is normal. The left ventricular ejection fraction is within the normal range. No regional wall motion abnormalities noted. There is mild aortic regurgitation. See above for other minor abnormalities
--- NOTE | 2017-03-15 23:09 | CP.PCM.PN ---
Subjective - Date & Time of Evaluation Date of Evaluation: 03/15/17 Time of Evaluation: 17:30 - Subjective Subjective: Patient seen and evaluated Denies chest pain and dyspnea Objective - Vital Signs/Intake and Output Vital Signs (last 24 hours): Temp Pulse Resp BP Pulse Ox 98.1 F 68 20 149/82 97 03/15/17 15:19 03/15/17 15:30 03/15/17 15:19 03/15/17 15:19 03/15/17 15:19 - Medications Medications: Current Medications Amlodipine Besylate (Norvasc) 10 mg PO DAILY [facility] Last Admin: 03/15/17 09:17 Dose: 10 mg Diphenhydramine HCl (Benadryl) 25 mg PO Q6 PRN PRN Reason: Itching / Pruritus Last Admin: 03/14/17 17:19 Dose: 25 mg Enoxaparin Sodium (Lovenox) 40 mg SC DAILY [facility] Last Admin: 03/15/17 09:18 Dose: 40 mg Sodium Chloride (Sodium Chloride 0.9%) 1,000 mls @ 100 mls/hr IV .Q10H [facility] Last Admin: 03/15/17 12:15 Dose: 100 mls/hr Insulin Aspart (Novolog) 0 unit SC ACHS [facility] PRN Reason: Protocol Last Admin: 03/15/17 21:38 Dose: Not Given Labetalol HCl (Trandate) 200 mg PO BID [facility] Last Admin: 03/15/17 18:07 Dose: 200 mg Multivitamins (Hexavitamin) 1 tab PO DAILY [facility] Last Admin: 03/15/17 09:18 Dose: 1 tab Pantoprazole Sodium (Protonix Ec Tab) 40 mg PO DAILY [facility] Last Admin: 03/15/17 09:17 Dose: 40 mg Phytonadione (Vitamin K Tab) 5 mg PO DAILY [facility] Stop: 03/17/17 23:59 Last Admin: 03/15/17 09:19 Dose: 5 mg Pneumococcal Polyvalent Vaccine (Pneumovax 23 Vaccine) 0.5 ml IM .ONCE ONE Stop: 03/16/17 10:01 - Labs Labs: 03/15/17 07:28 03/15/17 07:28 PT 20.1 SECONDS (9.7-12.2) H 03/13/17 19:39 INR 1.8 03/13/17 19:39 APTT 37 SECONDS (21-34) H 03/13/17 19:39
--- NOTE | 2017-03-16 01:36 | CP.PCM.PN ---
Subjective - Date & Time of Evaluation Date of Evaluation: 03/15/17 Time of Evaluation: 20:00 - Subjective Subjective: This is a 76 year old male with h/o DM, HTN, h/o PUD admitted with jaundice, found to have pancreatic head mass and biliary obstruction. Scheduled for EUS with biopsy and ERCP for next week. Optimize blood sugar and coagulopathy to goal INR 1.5. Diet as tolerated. No s/s of cholangitis Objective - Vital Signs/Intake and Output Vital Signs (last 24 hours): Temp Pulse Resp BP Pulse Ox 98.2 F 64 20 151/71 H 98 03/15/17 23:25 03/15/17 23:25 03/15/17 23:25 03/15/17 23:25 03/15/17 23:25 Intake and Output: 03/15/17 03/16/17 18:59 06:59 Intake Total 1100 Balance 1100 - Medications Medications: Current Medications Amlodipine Besylate (Norvasc) 10 mg PO DAILY [facility] Last Admin: 03/15/17 09:17 Dose: 10 mg Diphenhydramine HCl (Benadryl) 25 mg PO Q6 PRN PRN Reason: Itching / Pruritus Last Admin: 03/14/17 17:19 Dose: 25 mg Enoxaparin Sodium (Lovenox) 40 mg SC DAILY [facility] Last Admin: 03/15/17 09:18 Dose: 40 mg Sodium Chloride (Sodium Chloride 0.9%) 1,000 mls @ 100 mls/hr IV .Q10H [facility] Last Admin: 03/15/17 12:15 Dose: 100 mls/hr Insulin Aspart (Novolog) 0 unit SC ACHS [facility] PRN Reason: Protocol Last Admin: 03/15/17 21:38 Dose: Not Given Labetalol HCl (Trandate) 200 mg PO BID [facility] Last Admin: 03/15/17 18:07 Dose: 200 mg Multivitamins (Hexavitamin) 1 tab PO DAILY [facility] Last Admin: 03/15/17 09:18 Dose: 1 tab Pantoprazole Sodium (Protonix Ec Tab) 40 mg PO DAILY [facility] Last Admin: 03/15/17 09:17 Dose: 40 mg Phytonadione (Vitamin K Tab) 5 mg PO DAILY [facility] Stop: 03/17/17 23:59 Last Admin: 03/15/17 09:19 Dose: 5 mg Pneumococcal Polyvalent Vaccine (Pneumovax 23 Vaccine) 0.5 ml IM .ONCE ONE Stop: 03/16/17 10:01 - Labs Labs: 03/15/17 07:28 03/15/17 07:28 PT 20.1 SECONDS (9.7-12.2) H 03/13/17 19:39 INR 1.8 03/13/17 19:39 APTT 37 SECONDS (21-34) H 03/13/17 19:39 - Constitutional Appears: No Acute Distress - Head Exam Head Exam: ATRAUMATIC, NORMAL INSPECTION, NORMOCEPHALIC - Eye Exam Eye Exam: EOMI, Normal appearance, PERRL, Scleral icterus Pupil Exam: NORMAL ACCOMODATION, PERRL - ENT Exam ENT Exam: Mucous Membranes Moist, Normal Exam - Respiratory Exam Respiratory Exam: Clear to Ausculation Bilateral, NORMAL BREATHING PATTERN - Cardiovascular Exam Cardiovascular Exam: REGULAR RHYTHM, +S1, +S2. absent: Murmur - GI/Abdominal Exam GI & Abdominal Exam: Soft, Normal Bowel Sounds. absent: Tenderness Assessment and Plan (1) Pancreatic abnormality Status: Acute (2) Biliary obstruction Status: Acute (3) HTN (hypertension) Status: Acute (4) Diabetes Status: Acute - Assessment and Plan (Free Text) Assessment: This is a 76 year old male with h/o DM, HTN, h/o PUD admitted with jaundice, found to have pancreatic head mass and biliary obstruction. Scheduled for EUS with biopsy and ERCP for next week. Optimize blood sugar and coagulopathy to goal INR 1.5. Diet as tolerated. No s/s of cholangitis
[2017-03-16] MEDS: (Novolog) Insulin Aspart, Recombinant 100 u/ml 10 ml vial SC SCH ×4 (07:30→22:00)
[2017-03-16 07:48] LABS: INR 2.1
[2017-03-16] MEDS: Multiple Vitamins Tab PO SCH (09:17)
[2017-03-16] MEDS: Pantoprazole 40 mg EC Tab PO SCH (09:17)
[2017-03-16] MEDS: Phytonadione 2.5 MG/0.5 TAB TAB PO SCH (09:18)
[2017-03-16] MEDS: Enoxaparin 40 mg Syringe SC SCH (09:20)
[2017-03-16] MEDS ORDERED: Pneumococcal 23-Valent Vaccine IM ONE (10:00)
[2017-03-16] MEDS: Sodium Chloride 0.9% 1,000 ML IV SCH ×2 (10:15→18:38)
--- NOTE | 2017-03-16 10:19 | CP.PCM.PN ---
<Jace Mcmillan - Last Filed: 03/16/17 13:21> Subjective - Date & Time of Evaluation Date of Evaluation: 03/16/17 Time of Evaluation: 08:20 - Subjective Subjective: PGY5 GI Fellow Progress Note Patient seen and examined bedside this morning. Family at bedside. The patient has no new complaints. No events overnight. 12 system ROS performed and negative except where stated. Objective - Vital Signs/Intake and Output Vital Signs (last 24 hours): Temp Pulse Resp BP Pulse Ox 98.3 F 63 18 133/69 96 03/16/17 07:20 03/16/17 07:30 03/16/17 07:20 03/16/17 07:20 03/16/17 07:20 Intake and Output: 03/16/17 03/16/17 06:59 18:59 Intake Total 2020 Balance 2020 - Medications Medications: Current Medications Amlodipine Besylate (Norvasc) 10 mg PO DAILY [facility] Last Admin: 03/16/17 09:17 Dose: 10 mg Diphenhydramine HCl (Benadryl) 25 mg PO Q6 PRN PRN Reason: Itching / Pruritus Last Admin: 03/14/17 17:19 Dose: 25 mg Enoxaparin Sodium (Lovenox) 40 mg SC DAILY [facility] Last Admin: 03/16/17 09:20 Dose: 40 mg Sodium Chloride (Sodium Chloride 0.9%) 1,000 mls @ 100 mls/hr IV .Q10H [facility] Last Admin: 03/15/17 12:15 Dose: 100 mls/hr Insulin Aspart (Novolog) 0 unit SC ACHS [facility] PRN Reason: Protocol Last Admin: 03/16/17 07:30 Dose: Not Given Labetalol HCl (Trandate) 200 mg PO BID [facility] Last Admin: 03/16/17 09:20 Dose: 200 mg Multivitamins (Hexavitamin) 1 tab PO DAILY [facility] Last Admin: 03/16/17 09:17 Dose: 1 tab Pantoprazole Sodium (Protonix Ec Tab) 40 mg PO DAILY [facility] Last Admin: 03/16/17 09:17 Dose: 40 mg Phytonadione (Vitamin K Tab) 5 mg PO DAILY [facility] Stop: 03/17/17 23:59 Last Admin: 03/16/17 09:18 Dose: 5 mg - Labs Labs: 03/15/17 07:28 03/15/17 07:28 PT 23.6 SECONDS (9.7-12.2) H 03/16/17 07:38 INR 2.1 03/16/17 07:38 APTT 37 SECONDS (21-34) H 03/13/17 19:39 - Constitutional Appears: Non-toxic, No Acute Distress - Eye Exam Eye Exam: EOMI, PERRL, Scleral icterus - ENT Exam ENT Exam: Mucous Membranes Moist - Respiratory Exam Respiratory Exam: Clear to Ausculation Bilateral. absent: Rales, Rhonchi, Wheezes - Cardiovascular Exam Cardiovascular Exam: RRR, +S1, +S2 - GI/Abdominal Exam GI & Abdominal Exam: Soft, Normal Bowel Sounds. absent: Distended, Firm, Guarding, Rigid, Tenderness, Organomegaly - Extremities Exam Extremities Exam: Normal Inspection. 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 -Pancreatic mass -Biliary obstruction 2/2 above Plan: -NPO past MN for EUS/ERCP with FNB pancreatic lesion/stent placement -Current condition highly suspicious for pancreatic cancer with biliary obstruction -Continue with daily Vit K supplementation; today will give IV as INR 2.1 -FFP to be placed on hold for transfusion tomorrow AM at 3am -Analgesia/antiemetics PRN per primary service -Diet as tolerated; NPO past MN <Karen Orta MD - Last Filed: 03/16/17 22:00> Objective - Vital Signs/Intake and Output Vital Signs (last 24 hours): Temp Pulse Resp BP Pulse Ox 98.5 F 64 20 133/74 100 03/16/17 15:33 03/16/17 15:33 03/16/17 15:33 03/16/17 15:33 03/16/17 15:33 - Medications Medications: Current Medications Amlodipine Besylate (Norvasc) 10 mg PO DAILY [facility] Last Admin: 03/16/17 09:17 Dose: 10 mg Diphenhydramine HCl (Benadryl) 25 mg PO Q6 PRN PRN Reason: Itching / Pruritus Last Admin: 03/14/17 17:19 Dose: 25 mg Enoxaparin Sodium (Lovenox) 40 mg SC DAILY [facility] Last Admin: 03/16/17 09:20 Dose: 40 mg Sodium Chloride (Sodium Chloride 0.9%) 1,000 mls @ 100 mls/hr IV .Q10H [facility] Last Admin: 03/16/17 18:38 Dose: 100 mls/hr Insulin Aspart (Novolog) 0 unit SC ACHS [facility] PRN Reason: Protocol Last Admin: 03/16/17 18:39 Dose: 2 unit Labetalol HCl (Trandate) 200 mg PO BID [facility] Last Admin: 03/16/17 18:39 Dose: 200 mg Multivitamins (Hexavitamin) 1 tab PO DAILY [facility] Last Admin: 03/16/17 09:17 Dose: 1 tab Pantoprazole Sodium (Protonix Ec Tab) 40 mg PO DAILY [facility] Last Admin: 03/16/17 09:17 Dose: 40 mg - Labs Labs: 03/15/17 07:28 03/15/17 07:28 PT 23.6 SECONDS (9.7-12.2) H 03/16/17 07:38 INR 2.1 03/16/17 07:38 APTT 37 SECONDS (21-34) H 03/13/17 19:39 Attending/Attestation - Attestation I have personally seen and examined this patient.: Yes I have fully participated in the care of the patient.: Yes I have reviewed all pertinent clinical information, including history, physical exam and plan: Yes Notes (Text): 03/16/17 21:59 Patient seen and examined at bedside on GI rounds. This is a 76 year old male with h/o DM, HTN, h/o PUD admitted with jaundice, found to have pancreatic head mass and biliary obstruction. Scheduled for EUS with biopsy and ERCP for tomorrow. Optimize blood sugar and coagulopathy to goal INR 1.5. Will need FFP prior to EUS/ERCP. Diet as tolerated. No s/s of cholangitis
[2017-03-16] MEDS ORDERED: Phytonadione 10 MG in Sodium Chloride 0.9% 50 ML IV ONE (10:45)
[2017-03-16] MEDS ORDERED: Phytonadione 10 mg/ml Inj (Adult) IV ONE (12:00)
--- NOTE | 2017-03-16 19:47 | CP.PCM.PN ---
Subjective - Date & Time of Evaluation Date of Evaluation: 03/16/17 Time of Evaluation: 15:30 - Subjective Subjective: Patient seen and evaluated Denies chest pain and dyspnea For stress test in am Objective - Vital Signs/Intake and Output Vital Signs (last 24 hours): Temp Pulse Resp BP Pulse Ox 98.5 F 64 20 133/74 100 03/16/17 15:33 03/16/17 15:33 03/16/17 15:33 03/16/17 15:33 03/16/17 15:33 - Medications Medications: Current Medications Amlodipine Besylate (Norvasc) 10 mg PO DAILY [facility] Last Admin: 03/16/17 09:17 Dose: 10 mg Diphenhydramine HCl (Benadryl) 25 mg PO Q6 PRN PRN Reason: Itching / Pruritus Last Admin: 03/14/17 17:19 Dose: 25 mg Enoxaparin Sodium (Lovenox) 40 mg SC DAILY [facility] Last Admin: 03/16/17 09:20 Dose: 40 mg Sodium Chloride (Sodium Chloride 0.9%) 1,000 mls @ 100 mls/hr IV .Q10H [facility] Last Admin: 03/16/17 18:38 Dose: 100 mls/hr Insulin Aspart (Novolog) 0 unit SC ACHS [facility] PRN Reason: Protocol Last Admin: 03/16/17 18:39 Dose: 2 unit Labetalol HCl (Trandate) 200 mg PO BID [facility] Last Admin: 03/16/17 18:39 Dose: 200 mg Multivitamins (Hexavitamin) 1 tab PO DAILY [facility] Last Admin: 03/16/17 09:17 Dose: 1 tab Pantoprazole Sodium (Protonix Ec Tab) 40 mg PO DAILY [facility] Last Admin: 03/16/17 09:17 Dose: 40 mg - Labs Labs: 03/15/17 07:28 03/15/17 07:28 PT 23.6 SECONDS (9.7-12.2) H 03/16/17 07:38 INR 2.1 03/16/17 07:38 APTT 37 SECONDS (21-34) H 03/13/17 19:39 - Constitutional Appears: Well - Head Exam Head Exam: ATRAUMATIC, NORMAL INSPECTION - Eye Exam Eye Exam: EOMI, Normal appearance Pupil Exam: NORMAL ACCOMODATION, PERRL - ENT Exam ENT Exam: Mucous Membranes Moist - Neck Exam Neck Exam: Full ROM - Cardiovascular Exam Cardiovascular Exam: REGULAR RHYTHM - Extremities Exam Extremities Exam: Full ROM - Back Exam Back Exam: NORMAL INSPECTION - Neurological Exam Neurological Exam: Alert, Oriented x3 - Psychiatric Exam Psychiatric exam: Normal Affect - Skin Skin Exam: Warm Assessment and Plan - Assessment and Plan (Free Text) Assessment: 1. Exertional chest pain 2. HTN 3. Hyperlipidemia For stress test in am
--- NOTE | 2017-03-16 21:39 | CP.PCM.PN ---
Subjective - Date & Time of Evaluation Date of Evaluation: 03/16/17 Time of Evaluation: 10:00 - Subjective Subjective: Patient seen and evaluated Denies chest pain and dyspnea Pt is for whipple procedure [facility] Objective - Vital Signs/Intake and Output Vital Signs (last 24 hours): Temp Pulse Resp BP Pulse Ox 98.5 F 64 20 133/74 100 03/16/17 15:33 03/16/17 15:33 03/16/17 15:33 03/16/17 15:33 03/16/17 15:33 - Medications Medications: Current Medications Amlodipine Besylate (Norvasc) 10 mg PO DAILY [facility] Last Admin: 03/16/17 09:17 Dose: 10 mg Diphenhydramine HCl (Benadryl) 25 mg PO Q6 PRN PRN Reason: Itching / Pruritus Last Admin: 03/14/17 17:19 Dose: 25 mg Enoxaparin Sodium (Lovenox) 40 mg SC DAILY [facility] Last Admin: 03/16/17 09:20 Dose: 40 mg Sodium Chloride (Sodium Chloride 0.9%) 1,000 mls @ 100 mls/hr IV .Q10H [facility] Last Admin: 03/16/17 18:38 Dose: 100 mls/hr Insulin Aspart (Novolog) 0 unit SC ACHS [facility] PRN Reason: Protocol Last Admin: 03/16/17 18:39 Dose: 2 unit Labetalol HCl (Trandate) 200 mg PO BID [facility] Last Admin: 03/16/17 18:39 Dose: 200 mg Multivitamins (Hexavitamin) 1 tab PO DAILY [facility] Last Admin: 03/16/17 09:17 Dose: 1 tab Pantoprazole Sodium (Protonix Ec Tab) 40 mg PO DAILY [facility] Last Admin: 03/16/17 09:17 Dose: 40 mg - Labs Labs: 03/15/17 07:28 03/15/17 07:28 PT 23.6 SECONDS (9.7-12.2) H 03/16/17 07:38 INR 2.1 03/16/17 07:38 APTT 37 SECONDS (21-34) H 03/13/17 19:39 Assessment and Plan (1) Pancreatic abnormality Status: Acute (2) Biliary obstruction Status: Acute (3) HTN (hypertension) Status: Acute (4) Diabetes Status: Acute
[2017-03-17] MEDS: Sodium Chloride 0.9% 1,000 ML IV SCH ×2 (04:54→23:33)
[2017-03-17 06:11] LABS: HEMATOCRIT 32.4 % (35.0-51.0); MEAN CELL VOLUME 85.3 fL (80.0-94.0); MEAN CORPUSCULAR HEMOGLOBIN 28.8 pg (27.0-31.0); MEAN CORPUSCULAR HGB CONC 33.8 g/dL (33.0-37.0); MEAN PLATELET VOLUME 9.5 fL (7.2-11.7); WHITE BLOOD COUNT 7.8 K/uL (4.8-10.8)
[2017-03-17 06:17] LABS: INR 1.4
[2017-03-17 06:20] LABS: ALB/GLOB RATIO 0.7 (1.0-2.1); ALKALINE PHOSPHATASE 132 U/L (38-126); ALT/SGPT 78 U/L (21-72); AST/SGOT 83 U/L (17-59); BILIRUBIN,TOTAL 21.3 mg/dL (0.2-1.3); BLOOD UREA NITROGEN 14 mg/dL (9-20); CALCIUM 7.8 mg/dl (8.6-10.4); CARBON DIOXIDE 21 mmol/L (22-30); CHLORIDE 103 mmol/L (98-107); GFR AFRICAN-AMERICAN > 60; GLUCOSE,RANDOM 150 mg/dL (75-110); POTASSIUM 3.2 mmol/L (3.6-5.2); SODIUM 134 mmol/L (132-148); TOTAL PROTEIN 6.5 g/dL (6.3-8.3)
[2017-03-17] MEDS: (Novolog) Insulin Aspart, Recombinant 100 u/ml 10 ml vial SC SCH ×4 (07:30→22:18)
[2017-03-17] MEDS ORDERED: Iohexol 240 (50 ml) ONE (07:38)
[2017-03-17] MEDS ORDERED: Indomethacin 50 MG Suppository PR ONE (07:38)
[2017-03-17] MEDS ORDERED: Aminophylline 25 mg/ml Inj ONE (07:45)
[2017-03-17 09:30] LABS: EOS # 0.2 K/uL (0.0-0.7); LYMPH # 1.3 K/uL (1.0-4.3); MONO # 0.6 K/uL (0.0-0.8)
[2017-03-17] MEDS: Multiple Vitamins Tab PO SCH (10:00)
[2017-03-17] MEDS: Pantoprazole 40 mg EC Tab PO SCH (10:00)
[2017-03-17] MEDS ORDERED: Propofol 10 mg/ml Inj (20 ML) ONE (13:13)
[2017-03-17] MEDS ORDERED: Succinylcholine Chloride 20 mg/ml Syr (5 ml) IV ONE (13:13)
[2017-03-17] MEDS ORDERED: Lidocaine Hydrochloride 5 ML INJ ONE (13:14)
--- NOTE | 2017-03-17 14:14 | CP.PCM.PN ---
Subjective - Date & Time of Evaluation Date of Evaluation: 03/17/17 Time of Evaluation: 18:00 - Subjective Subjective: pt is c/o abdominal pain Objective - Vital Signs/Intake and Output Vital Signs (last 24 hours): Temp Pulse Resp BP Pulse Ox 98.1 F 64 20 157/85 H 97 03/17/17 06:45 03/17/17 06:45 03/17/17 06:45 03/17/17 06:45 03/17/17 06:45 Intake and Output: 03/17/17 03/17/17 06:59 18:59 Intake Total 800 Balance 800 - Medications Medications: Current Medications Amlodipine Besylate (Norvasc) 10 mg PO DAILY [facility] Last Admin: 03/17/17 10:00 Dose: Not Given Diphenhydramine HCl (Benadryl) 25 mg PO Q6 PRN PRN Reason: Itching / Pruritus Last Admin: 03/14/17 17:19 Dose: 25 mg Enoxaparin Sodium (Lovenox) 40 mg SC DAILY [facility] Last Admin: 03/16/17 09:20 Dose: 40 mg Insulin Aspart (Novolog) 0 unit SC [facility] PRN Reason: Protocol Last Admin: 03/17/17 11:30 Dose: Not Given Labetalol HCl (Trandate) 200 mg PO BID [facility] Last Admin: 03/17/17 10:00 Dose: Not Given Multivitamins (Hexavitamin) 1 tab PO DAILY [facility] Last Admin: 03/17/17 10:00 Dose: Not Given Pantoprazole Sodium (Protonix Ec Tab) 40 mg PO DAILY [facility] Last Admin: 03/17/17 10:00 Dose: Not Given - Labs Labs: 03/17/17 05:56 03/17/17 05:56 PT 15.3 SECONDS (9.7-12.2) H D 03/17/17 05:56 INR 1.4 D 03/17/17 05:56 APTT 37 SECONDS (21-34) H 03/13/17 19:39
[2017-03-17] MEDS ORDERED: Lactated Ringer's 1,000 ML IV ONE (14:18)
[2017-03-17] MEDS ORDERED: ePHEDrine 50 mg/ml Inj ONE (14:27)
[2017-03-17] MEDS ORDERED: Phenylephrine 10 mg/ml Inj ONE (15:02)
--- NOTE | 2017-03-17 21:25 | CARD ---
APPROVED REPORT Protocol: LEXISCAN Target HR: 144 bpm Resting ECG: normal Resting Heart Rate: 64 bpm Resting Blood Pressure: 122/80mmHg submaximum (85%): 122 bpm TEST SUMMARY PREINFSNHYPERV.01:[id number]/80.0. INFUSIONDOSE 100:300.00.01.066/.0. [id number]:[id number]/80.0. POST EXERCISE Reason for Termination: SOB Target HR: No Max HR: 66 bpm 50% of Maximum Predicted HR: 144 bpm Exercise duration: 00:30 min:sec, 0 Stage Exercise capacity: 1.0METs Max Blood Pressure: 122/80mmHg Blood Pressure response to exercise: normal resting BP - appropriate response Heart Rate response to exercise: appropriate Chest Pain: No, none Angina index: 0 Arrhythmia: No, none ST Change: No, none Deviation: 0 mm INTERPRETATION Stress EKG Conclusion: NEGATIVE LEXISCAN STRESS TEST NORMAL BP RESPONSE TO LEXISCAN NUCLEAR STUDIES TO BE READ SEPARATELY EXAM: Myocardial Perfusion STRESS/REST Imaging Protocol The imaging protocol used to acquire images was Stress Tc-99m/rest Tc-99m 1 day Stress Spect myocardial perfusion imaging was performed in supine position 45 minutes following the injection of 13.1 mCi of Tc-99 Myoview. Gated Rest Spect was performed 55 minutes after intravenous 30.8 mCi Tc-99 Myoview injection. The images were gated to evaluate regional wall motion and calculate ventricular ejection fraction.Images were reconstructed using backfilter projection method in short horizontal and verticle long axis. Spect slices were generated. RESTING DATA EDV72.99xfIV2.40L/min ESV16.00mlMyocardial Qbhs833.00g Av. Heart Rate61.00bpm EF78.00% STRESS DATA EDV66.05vwMP4.60L/min ESV12.00mlMyocardial Tanx277.00g EF82.00% Regional WT score at stress:2.00 Regional WM score at stress:0.00 Summed WT score at stress:16.00 Av. Heart Rate67.00bpmSummed WM score at stress:0.00 LV Perf. Quant 17 Seg. SSS0.00 17 Seg. SRS0.00 17 Seg. SDS0.00 Stress Defect Extent (% LAD)0.00Rest Defect Extent (% LAD)0.00Rev. Defect Extent (% LAD)0.00 Stress Defect Extent (% LCX)0.00Rest Defect Extent (% LCX)0.00Rev. Defect Extent (% LCX)0.00 Stress Defect Extent (% RCA)0.00Rest Defect Extent (% RCA)0.00Rev. Defect Extent (% RCA)0.00 Stress Defect Extent (% ALANA)0.00Rest Defect Extent (% ALANA)0.00Rev. Defect Extent (% ALANA)0.00 IMPRESSION Normal Myocardial Perfusion exercise stress study Left Ventricle LV Size/Shape: The left ventricle is normal size. LV Function:Left ventricle systolic function is normal. The Ejection Fraction is >70%. Regional Wall Motion:There is normal left ventricular wall motion. Metabolism/Perfusion There are no defects. There are no perfusion/metabolism defects. Conclusion 1. There are no scan evidence of reversible ischemia noted. 2. Left ventricle systolic function is normal. 3. The Ejection Fraction is >70%.
--- NOTE | 2017-03-17 23:02 | CP.PCM.PN ---
Subjective - Date & Time of Evaluation Date of Evaluation: 03/17/17 Time of Evaluation: 13:00 - Subjective Subjective: Patient s/p stress test Stress test: Normal ECHO: Normal EF Patient cleared for GI procedure Objective - Vital Signs/Intake and Output Vital Signs (last 24 hours): Temp Pulse Resp BP Pulse Ox 98.1 F 76 20 128/77 97 03/17/17 17:00 03/17/17 17:00 03/17/17 17:00 03/17/17 17:00 03/17/17 17:00 - Medications Medications: Current Medications Amlodipine Besylate (Norvasc) 10 mg PO DAILY [facility] Last Admin: 03/17/17 10:00 Dose: Not Given Diphenhydramine HCl (Benadryl) 25 mg PO Q6 PRN PRN Reason: Itching / Pruritus Last Admin: 03/14/17 17:19 Dose: 25 mg Enoxaparin Sodium (Lovenox) 40 mg SC DAILY [facility] Last Admin: 03/16/17 09:20 Dose: 40 mg Insulin Aspart (Novolog) 0 unit SC ACHS [facility] PRN Reason: Protocol Last Admin: 03/17/17 22:18 Dose: Not Given Labetalol HCl (Trandate) 200 mg PO BID [facility] Last Admin: 03/17/17 18:00 Dose: Not Given Multivitamins (Hexavitamin) 1 tab PO DAILY [facility] Last Admin: 03/17/17 10:00 Dose: Not Given Pantoprazole Sodium (Protonix Ec Tab) 40 mg PO DAILY [facility] Last Admin: 03/17/17 10:00 Dose: Not Given - Labs Labs: 03/17/17 05:56 03/17/17 05:56 PT 15.3 SECONDS (9.7-12.2) H D 03/17/17 05:56 INR 1.4 D 03/17/17 05:56 APTT 37 SECONDS (21-34) H 03/13/17 19:39
--- NOTE | 2017-03-18 07:19 | CP.PCM.PN ---
<Amarilis Nieto - Last Filed: 03/18/17 09:01> Subjective - Date & Time of Evaluation Date of Evaluation: 03/18/17 Time of Evaluation: 06:15 - Subjective Subjective: GI Fellow PGY4 Progress Note Pt seen and evaluated at bedside, pt doing well with no issues overnight. Pt denies any fevers, chills, abdominal pain, nausea or vomiting. Pt's at bedside confirms pt tolerated liquid diet and had no issues post procedure. ROS: A 12pt ROS was obtained and was negative except as above. Objective - Vital Signs/Intake and Output Vital Signs (last 24 hours): Temp Pulse Resp BP Pulse Ox 97.3 F L 90 20 145/74 97 03/17/17 23:25 03/17/17 23:25 03/17/17 23:25 03/18/17 04:00 03/17/17 23:25 Intake and Output: 03/18/17 03/18/17 06:59 18:59 Intake Total 800 Balance 800 - Medications Medications: Current Medications Amlodipine Besylate (Norvasc) 10 mg PO DAILY [facility] Last Admin: 03/17/17 10:00 Dose: Not Given Diphenhydramine HCl (Benadryl) 25 mg PO Q6 PRN PRN Reason: Itching / Pruritus Last Admin: 03/14/17 17:19 Dose: 25 mg Enoxaparin Sodium (Lovenox) 40 mg SC DAILY [facility] Last Admin: 03/16/17 09:20 Dose: 40 mg Insulin Aspart (Novolog) 0 unit SC ACHS [facility] PRN Reason: Protocol Last Admin: 03/17/17 22:18 Dose: Not Given Labetalol HCl (Trandate) 200 mg PO BID [facility] Last Admin: 03/17/17 18:00 Dose: Not Given Multivitamins (Hexavitamin) 1 tab PO DAILY [facility] Last Admin: 03/17/17 10:00 Dose: Not Given Pantoprazole Sodium (Protonix Ec Tab) 40 mg PO DAILY [facility] Last Admin: 03/17/17 10:00 Dose: Not Given - Labs Labs: 03/17/17 05:56 03/17/17 05:56 PT 15.3 SECONDS (9.7-12.2) H D 03/17/17 05:56 INR 1.4 D 03/17/17 05:56 APTT 37 SECONDS (21-34) H 03/13/17 19:39 - Constitutional Appears: Well, No Acute Distress - Head Exam Head Exam: ATRAUMATIC, NORMAL INSPECTION, NORMOCEPHALIC - Eye Exam Eye Exam: EOMI, PERRL, Scleral icterus - ENT Exam ENT Exam: Mucous Membranes Moist, Normal Exam, Normal External Ear Exam - Neck Exam Neck Exam: Full ROM, Normal Inspection - Respiratory Exam Respiratory Exam: Clear to Ausculation Bilateral, NORMAL BREATHING PATTERN - Cardiovascular Exam Cardiovascular Exam: RRR, +S1, +S2 - GI/Abdominal Exam GI & Abdominal Exam: Soft, Normal Bowel Sounds. absent: Tenderness, Organomegaly - Rectal Exam Rectal Exam: Deferred - Extremities Exam Extremities Exam: Full ROM, Normal Inspection - Back Exam Back Exam: NORMAL INSPECTION - Neurological Exam Neurological Exam: Alert, Awake, Oriented x3 - Psychiatric Exam Psychiatric exam: Normal Affect, Normal Mood - Skin Skin Exam: Dry, Intact, Warm Additional comments: Jaundice Assessment and Plan - Assessment and Plan (Free Text) Assessment: This is a 76yM with pmhx of DM, HTN, PUD who was admitted with painless jaundice and noted to have a pancreatic head mass with biliary obstruction. Pt with pancreatic head mass s/p EUS and FNB T3N1 with 3 malignant lymph nodes and s/p ERCP with sphincterotomy with a 10mm x40mm fully covered metal stent. 1. Pancreatic Head Mass 2. Biliary Obstruction-CBD 10mm 3. Painless Jaundice 4. DM 5. HTN Plan: -Continue supportive care, monitor for any signs of infection or bleeding- asymptomatic at this time -Followup on labs this am, LFTs and CBC -Tolerating Liquid Diet, advance as tolerated -Pt will followup on FNB of pancreatic head mass as an outpt and further plan of care recommendations based on pathology results <Yousuf López - Last Filed: 03/18/17 14:12> Objective - Vital Signs/Intake and Output Vital Signs (last 24 hours): Temp Pulse Resp BP Pulse Ox 97.3 F L 90 20 145/74 97 03/17/17 23:25 03/17/17 23:25 03/17/17 23:25 03/18/17 04:00 03/17/17 23:25 Intake and Output: 03/18/17 03/18/17 06:59 18:59 Intake Total 800 Balance 800 - Medications Medications: Current Medications Amlodipine Besylate (Norvasc) 10 mg PO DAILY [facility] Last Admin: 03/18/17 09:23 Dose: 10 mg Diphenhydramine HCl (Benadryl) 25 mg PO Q6 PRN PRN Reason: Itching / Pruritus Last Admin: 03/14/17 17:19 Dose: 25 mg Enoxaparin Sodium (Lovenox) 40 mg SC DAILY [facility] Last Admin: 03/16/17 09:20 Dose: 40 mg Insulin Aspart (Novolog) 0 unit SC ACHS [facility] PRN Reason: Protocol Last Admin: 03/18/17 12:30 Dose: 3 unit Labetalol HCl (Trandate) 200 mg PO BID [facility] Last Admin: 03/18/17 09:23 Dose: 200 mg Levetiracetam (Keppra) 500 mg PO BID [facility] Multivitamins (Hexavitamin) 1 tab PO DAILY [facility] Last Admin: 03/18/17 09:23 Dose: 1 tab Pantoprazole Sodium (Protonix Ec Tab) 40 mg PO DAILY [facility] Last Admin: 03/18/17 09:23 Dose: 40 mg - Labs Labs: 03/18/17 11:55 03/18/17 11:55 PT 15.3 SECONDS (9.7-12.2) H D 03/17/17 05:56 INR 1.4 D 03/17/17 05:56 APTT 37 SECONDS (21-34) H 03/13/17 19:39 Attending/Attestation - Attestation I have personally seen and examined this patient.: Yes I have fully participated in the care of the patient.: Yes I have reviewed all pertinent clinical information, including history, physical exam and plan: Yes Notes (Text): 03/18/17 14:08 I have seen and examined patient with GI fellow. No acute events overnight, he is seen sitting comfortably at bedside eating breakfast. He complains of mild epigastric abdominal pain though denies nausea, vomiting, fever/chills. Tolerating PO diet without difficulty. DM / HTN Obstructive jaundice, pancreatic head mass, s/p EUS/FNA T3N1 staging. s/p ERCP with placement of covered metallic biliary stent. - Diet as tolerated - LFTs stable, continue to monitor - Follow up oncology recommendations - Awaiting biopsy results from EUS - Patient will require outpatient follow up, as per family request they are planning on having patient evaluated [place] [facility] [place] discuss potential options, though likely limited given advanced disease - No further planned inpatient GI intervention, will sign off case. Please reconsult as necessary, thank you.
[2017-03-18] MEDS: (Novolog) Insulin Aspart, Recombinant 100 u/ml 10 ml vial SC SCH ×4 (08:00→21:52)
[2017-03-18] MEDS: Multiple Vitamins Tab PO SCH (09:23)
[2017-03-18] MEDS: Pantoprazole 40 mg EC Tab PO SCH (09:23)
--- NOTE | 2017-03-18 10:31 | RAD ---
PROCEDURE: Fluoroscopy of the for common bile duct stent placement HISTORY: As above COMPARISON: None TECHNIQUE: Total fluoroscopic time utilized during the procedure: 50.5 seconds. Total dose 0.44331 mGy cm squared FINDINGS: Submitted images from the current procedure: 8 Please refer to the physician's notes performing the procedure. IMPRESSION: Less than 1 hour fluoroscopic time utilized during performance of the procedure
--- NOTE | 2017-03-18 12:04 | CP.PCM.CON ---
History of Present Illness - History of Present Illness History of Present Illness: Mr. Barnes is a 76-year-old man with a past medical history of DM, HTN, PUD who was admitted with painless jaundice and noted to have a pancreatic head mass with biliary obstruction. He is now s/p EUS and FNB T3N1 with 3 malignant lymph nodes and s/p ERCP with sphincterotomy with stent placement. According to the patient's , when she was helping him to the bathroom yesterday, he had an episode of unresponsiveness, whole body stiffening and uncontrollable jerking movements. This lasted for about one minute and the patient was subsequently lethargic. He had two more episodes after this one that lasted approximately the same amount of time. They were not associated with urinary or bowel incontinence. There was no tongue biting or injury noted. Today, the patient continues to complain of lethargy. He also complained of abdominal distention and tenderness, but denied pain. Review of Systems - Review of Systems All systems: reviewed and no additional remarkable complaints except Past Patient History - Past Medical History & Family History Past Medical History?: Yes - Past Social History Smoking Status: Never Smoked - CARDIAC Hx Hypertension: Yes - PULMONARY Hx Respiratory Disorders: No - NEUROLOGICAL Hx Neurological Disorder: Yes HX Cerebrovascular Accident: Yes (MILD, NO RESIDUAL EFFECTS) - HEENT Hx HEENT Problems: No - RENAL Hx Chronic Kidney Disease: No - ENDOCRINE/METABOLIC Hx Endocrine Disorders: No - HEMATOLOGICAL/ONCOLOGICAL Hx Blood Disorders: No - INTEGUMENTARY Hx Dermatological Problems: No - MUSCULOSKELETAL/RHEUMATOLOGICAL Hx Musculoskeletal Disorders: No - GASTROINTESTINAL Hx Gastrointestinal Disorders: Yes Hx Ulcer: Yes Other/Comment: Pancreatic mass as per CT abdomen 03/11/2017 - GENITOURINARY/GYNECOLOGICAL Hx Genitourinary Disorders: No - PSYCHIATRIC Hx Substance Use: No - SURGICAL HISTORY Hx Surgeries: Yes Hx Herniorrhaphy: Yes (LEFT INGUINAL) - ANESTHESIA Hx Anesthesia: Yes Hx Anesthesia Reactions: No Hx Malignant Hyperthermia: No Meds Allergies/Adverse Reactions: Allergies Allergy/AdvReac Type Severity Reaction Status Date / Time No Known Allergies Allergy Verified 03/13/17 18:34 - Medications Medications: Current Medications Amlodipine Besylate (Norvasc) 10 mg PO DAILY [facility] Last Admin: 03/18/17 09:23 Dose: 10 mg Diphenhydramine HCl (Benadryl) 25 mg PO Q6 PRN PRN Reason: Itching / Pruritus Last Admin: 03/14/17 17:19 Dose: 25 mg Enoxaparin Sodium (Lovenox) 40 mg SC DAILY [facility] Last Admin: 03/16/17 09:20 Dose: 40 mg Insulin Aspart (Novolog) 0 unit SC ACHS [facility] PRN Reason: Protocol Last Admin: 03/18/17 08:00 Dose: 1 unit Labetalol HCl (Trandate) 200 mg PO BID [facility] Last Admin: 03/18/17 09:23 Dose: 200 mg Multivitamins (Hexavitamin) 1 tab PO DAILY [facility] Last Admin: 03/18/17 09:23 Dose: 1 tab Pantoprazole Sodium (Protonix Ec Tab) 40 mg PO DAILY [facility] Last Admin: 03/18/17 09:23 Dose: 40 mg Physical Exam - Constitutional Appears: Chronically Ill Additional comments: jaundiced - Head Exam Additional comments: appears jaundiced - Eye Exam Eye Exam: Scleral icterus Pupil Exam: NORMAL ACCOMODATION, PERRL - ENT Exam ENT Exam: Mucous Membranes Moist, Normal Exam - Neck Exam Neck exam: Positive for: Normal Inspection - Respiratory Exam Respiratory Exam: Clear to Auscultation Bilateral, NORMAL BREATHING PATTERN - GI/Abdominal Exam GI & Abdominal Exam: Distended, Firm, Organomegaly, Rigid. absent: Tenderness - Rectal Exam Rectal Exam: Deferred - Extremities Exam Extremities exam: Positive for: normal inspection - Neurological Exam Neurological exam: Alert, CN II-XII Intact, Normal Gait, Oriented x3 Additional comments: Reflexes were brisk on the left side as compared with the right. He had less coordination on FTN and HTS on the left side. Plantar response was downgoing bilaterally. - Psychiatric Exam Psychiatric exam: Normal Affect, Normal Mood - Skin Additional comments: diffusely jaundiced Results - Vital Signs Recent Vital Signs: Last Vital Signs Temp 97.3 F L 03/17/17 23:25 Pulse 90 03/17/17 23:25 Resp 20 03/17/17 23:25 BP 145/74 03/18/17 04:00 Pulse Ox 97 03/17/17 23:25 - Labs Result Diagrams: 03/18/17 11:55 03/18/17 11:55 Labs: Laboratory Results - last 24 hr 03/17/17 03/17/17 03/18/17 17:08 21:12 06:27 POC Glucose (mg/dL) 179 H 213 H 190 H 03/18/17 11:39 POC Glucose (mg/dL) 276 H Assessment & Plan (1) Seizure Assessment and Plan: The patient has metastatic pancreatic cancer and had several episodes that consisted of seizure-like activity. There is concern for brain metastases, especially with an abnormal neurological exam. I recommend obtaining an MRI of the brain with and without contrast; however, since the patient had a stent placed recently, this may not be possible. A CT scan of the head with contrast may be helpful as well. If the imaging is normal, he should still have an MRI when possible. The seizure-like episodes could have also been caused by metabolic abnormalities , but we should rule out other underlying pathology. The EEG was done, and shows diffuse slowing consistent with encephalopathy. There were no epileptiform discharges noted. I recommend starting Keppra at 500 mg PO BID. The [place] is likely to [place] [facility] [facility] [place] Otherwise, I will continue to follow along with the primary team. Thank you. Status: Acute Priority: High
[2017-03-18 12:09] LABS: HEMATOCRIT 35.1 % (35.0-51.0); MEAN CELL VOLUME 86.8 fL (80.0-94.0); MEAN CORPUSCULAR HEMOGLOBIN 29.7 pg (27.0-31.0); MEAN CORPUSCULAR HGB CONC 34.3 g/dL (33.0-37.0); MEAN PLATELET VOLUME 9.3 fL (7.2-11.7); PLATELET COUNT 258 K/uL (130-400); RED CELL DISTRIBUTION WIDTH 17.3 % (11.5-14.5); WHITE BLOOD COUNT 8.2 K/uL (4.8-10.8)
[2017-03-18 12:19] LABS: CHLORIDE 102 mmol/L (98-107); SODIUM 135 mmol/L (132-148)
[2017-03-18 12:20] LABS: POTASSIUM 3.8 mmol/L (3.6-5.2)
[2017-03-18 12:22] LABS: ALB/GLOB RATIO 0.7 (1.0-2.1); ALKALINE PHOSPHATASE 132 U/L (38-126); ALT/SGPT 89 U/L (21-72); AST/SGOT 89 U/L (17-59); BILIRUBIN,TOTAL 21.1 mg/dL (0.2-1.3); BLOOD UREA NITROGEN 16 mg/dL (9-20); CARBON DIOXIDE 21 mmol/L (22-30); GFR AFRICAN-AMERICAN > 60; GLUCOSE,RANDOM 264 mg/dL (75-110); TOTAL PROTEIN 6.5 g/dL (6.3-8.3)
[2017-03-18 12:35] LABS: LYMPH # 0.5 K/uL (1.0-4.3)
[2017-03-18 12:36] LABS: EOS # 0.1 K/uL (0.0-0.7); MONO # 0.7 K/uL (0.0-0.8)
[2017-03-18 12:38] LABS: BASOPHIL 1 % (0-2); EOSINOPHIL 1 % (0-4); NEUTROPHIL 82 % (50-75); TOTAL CELLS COUNTED 100
[2017-03-18] MEDS ORDERED: Iodixanol 320 MG/ML 100 ML BOTTLE IV ONE (13:17)
--- NOTE | 2017-03-18 14:23 | CT ---
PROCEDURE: CT HEAD WITH AND WITHOUT CONTRAST HISTORY: possible metastatic disease COMPARISON: 05/02/2013 TECHNIQUE: Axial computed tomography images were obtained through the head/brain with and without intravenous contrast enhancement. Contrast dose: 100 mL Visipaque 320 Radiation dose: Total exam DLP = 1737.99 mGy-cm. This CT exam was performed using one or more of the following dose reduction techniques: Automated exposure control, adjustment of the mA and/or kV according to patient size, and/or use of iterative reconstruction technique. FINDINGS: HEMORRHAGE: No intracranial hemorrhage. BRAIN: There are mild chronic microangiopathic changes. There is no mass, mass effect or abnormal extra-axial fluid collection. There is normal intravascular enhancement. There is no abnormal parenchymal or leptomeningeal enhancement. VENTRICLES: There is mild age-related global parenchymal volume loss and proportionate enlargement of the ventricles and cortical sulci. CALVARIUM: The skull base and calvarium are normal. SINUSES: There is a retention cyst/ polyp in the sphenoid chamber. The remaining included paranasal sinuses are predominantly clear. MASTOID AIR CELLS: Predominantly clear. OTHER FINDINGS: None. IMPRESSION: 1. No acute intracranial abnormality. Specifically, no evidence of intracranial metastasis. 2. Mild chronic microangiopathic changes and mild age-related global parenchymal volume loss.
--- NOTE | 2017-03-18 22:45 | CP.PCM.PN ---
Subjective - Date & Time of Evaluation Date of Evaluation: 03/18/17 Time of Evaluation: 09:00 - Subjective Subjective: Pt is s/p endoscopic ultrasound and stent placement in bile duct, Pt CT head and stress test was normal Objective - Vital Signs/Intake and Output Vital Signs (last 24 hours): Temp Pulse Resp BP Pulse Ox 97.3 F L 90 20 145/74 97 03/17/17 23:25 03/17/17 23:25 03/17/17 23:25 03/18/17 04:00 03/17/17 23:25 - Medications Medications: Current Medications Amlodipine Besylate (Norvasc) 10 mg PO DAILY [facility] Last Admin: 03/18/17 09:23 Dose: 10 mg Diphenhydramine HCl (Benadryl) 25 mg PO Q6 PRN PRN Reason: Itching / Pruritus Last Admin: 03/14/17 17:19 Dose: 25 mg Enoxaparin Sodium (Lovenox) 40 mg SC DAILY [facility] Last Admin: 03/16/17 09:20 Dose: 40 mg Insulin Aspart (Novolog) 0 unit SC [facility] PRN Reason: Protocol Last Admin: 03/18/17 21:52 Dose: Not Given Labetalol HCl (Trandate) 200 mg PO BID [facility] Last Admin: 03/18/17 17:32 Dose: 200 mg Levetiracetam (Keppra) 500 mg PO BID [facility] Last Admin: 03/18/17 17:32 Dose: 500 mg Multivitamins (Hexavitamin) 1 tab PO DAILY [facility] Last Admin: 03/18/17 09:23 Dose: 1 tab Pantoprazole Sodium (Protonix Ec Tab) 40 mg PO DAILY [facility] Last Admin: 03/18/17 09:23 Dose: 40 mg - Labs Labs: 03/18/17 11:55 03/18/17 11:55 PT 15.3 SECONDS (9.7-12.2) H D 03/17/17 05:56 INR 1.4 D 03/17/17 05:56 APTT 37 SECONDS (21-34) H 03/13/17 19:39 - Constitutional Appears: No Acute Distress - Head Exam Head Exam: ATRAUMATIC, NORMAL INSPECTION, NORMOCEPHALIC - Eye Exam Eye Exam: Normal appearance - ENT Exam ENT Exam: Mucous Membranes Moist - Cardiovascular Exam Cardiovascular Exam: REGULAR RHYTHM, +S1, +S2 - GI/Abdominal Exam GI & Abdominal Exam: Soft, Normal Bowel Sounds. absent: Tenderness - Rectal Exam Rectal Exam: Deferred Assessment and Plan (1) Biliary obstruction Status: Acute (2) Diabetes Status: Acute (3) HTN (hypertension) Status: Acute (4) Pancreatic abnormality Status: Acute (5) Seizure Status: Acute
--- NOTE | 2017-03-18 22:51 | CP.PCM.PN ---
Subjective - Date & Time of Evaluation Date of Evaluation: 03/18/17 Time of Evaluation: 11:45 - Subjective Subjective: Patient seen and evaluated No cardiac symptoms Normal stress test and EF Objective - Vital Signs/Intake and Output Vital Signs (last 24 hours): Temp Pulse Resp BP Pulse Ox 97.3 F L 90 20 145/74 97 03/17/17 23:25 03/17/17 23:25 03/17/17 23:25 03/18/17 04:00 03/17/17 23:25 - Medications Medications: Current Medications Amlodipine Besylate (Norvasc) 10 mg PO DAILY [facility] Last Admin: 03/18/17 09:23 Dose: 10 mg Diphenhydramine HCl (Benadryl) 25 mg PO Q6 PRN PRN Reason: Itching / Pruritus Last Admin: 03/14/17 17:19 Dose: 25 mg Enoxaparin Sodium (Lovenox) 40 mg SC DAILY [facility] Last Admin: 03/16/17 09:20 Dose: 40 mg Insulin Aspart (Novolog) 0 unit SC [facility] PRN Reason: Protocol Last Admin: 03/18/17 21:52 Dose: Not Given Labetalol HCl (Trandate) 200 mg PO BID [facility] Last Admin: 03/18/17 17:32 Dose: 200 mg Levetiracetam (Keppra) 500 mg PO BID [facility] Last Admin: 03/18/17 17:32 Dose: 500 mg Multivitamins (Hexavitamin) 1 tab PO DAILY [facility] Last Admin: 03/18/17 09:23 Dose: 1 tab Pantoprazole Sodium (Protonix Ec Tab) 40 mg PO DAILY [facility] Last Admin: 03/18/17 09:23 Dose: 40 mg - Labs Labs: 03/18/17 11:55 03/18/17 11:55 PT 15.3 SECONDS (9.7-12.2) H D 03/17/17 05:56 INR 1.4 D 03/17/17 05:56 APTT 37 SECONDS (21-34) H 03/13/17 19:39
--- NOTE | 2017-03-19 06:25 | CP.PCM.PN ---
<Amarilis Nieto - Last Filed: 03/19/17 07:42> Subjective - Date & Time of Evaluation Date of Evaluation: 03/19/17 Time of Evaluation: 06:20 - Subjective Subjective: GI Fellow PGY4 Progress Note Pt seen and evaluated at bedside, pt denies any issues overnight with no fevers , chills, abdominal pain, nausea or vomiting. Pt says he still feels bloated, with small BM yesterday and is passing gas. Pt's at bedside says pt is eating very little which has been an issue for a few weeks with decreased appetite. No issues post procedure. ROS: A 12pt ROS was obtained and was negative except as above. Objective - Vital Signs/Intake and Output Vital Signs (last 24 hours): Temp Pulse Resp BP Pulse Ox 98.3 F 63 20 147/75 97 03/18/17 23:15 03/18/17 23:15 03/18/17 23:15 03/18/17 23:15 03/18/17 23:15 - Medications Medications: Current Medications Amlodipine Besylate (Norvasc) 10 mg PO DAILY [facility] Last Admin: 03/18/17 09:23 Dose: 10 mg Diphenhydramine HCl (Benadryl) 25 mg PO Q6 PRN PRN Reason: Itching / Pruritus Last Admin: 03/14/17 17:19 Dose: 25 mg Enoxaparin Sodium (Lovenox) 40 mg SC DAILY [facility] Last Admin: 03/16/17 09:20 Dose: 40 mg Insulin Aspart (Novolog) 0 unit SC ACHS [facility] PRN Reason: Protocol Last Admin: 03/18/17 21:52 Dose: Not Given Labetalol HCl (Trandate) 200 mg PO BID [facility] Last Admin: 03/18/17 17:32 Dose: 200 mg Levetiracetam (Keppra) 500 mg PO BID [facility] Last Admin: 03/18/17 17:32 Dose: 500 mg Multivitamins (Hexavitamin) 1 tab PO DAILY [facility] Last Admin: 03/18/17 09:23 Dose: 1 tab Pantoprazole Sodium (Protonix Ec Tab) 40 mg PO DAILY [facility] Last Admin: 03/18/17 09:23 Dose: 40 mg Polyethylene Glycol (Miralax) 17 gm PO DAILY [facility] - Labs Labs: 03/18/17 11:55 03/18/17 11:55 PT 15.3 SECONDS (9.7-12.2) H D 03/17/17 05:56 INR 1.4 D 03/17/17 05:56 APTT 37 SECONDS (21-34) H 03/13/17 19:39 - Constitutional Appears: Non-toxic, No Acute Distress - Head Exam Head Exam: ATRAUMATIC, NORMAL INSPECTION, NORMOCEPHALIC - Eye Exam Eye Exam: EOMI, PERRL, Scleral icterus Pupil Exam: PERRL - ENT Exam ENT Exam: Mucous Membranes Moist, Normal Exam - Neck Exam Neck Exam: Full ROM, Normal Inspection - Respiratory Exam Respiratory Exam: Clear to Ausculation Bilateral, NORMAL BREATHING PATTERN - Cardiovascular Exam Cardiovascular Exam: RRR, +S1, +S2 - GI/Abdominal Exam GI & Abdominal Exam: Soft, Normal Bowel Sounds. absent: Guarding, Rigid, Tenderness, Organomegaly - Rectal Exam Rectal Exam: Deferred - Neurological Exam Neurological Exam: Alert, Awake, Oriented x3 - Psychiatric Exam Psychiatric exam: Normal Affect, Normal Mood - Skin Skin Exam: Dry, Intact, Warm Additional comments: Jaundice Assessment and Plan - Assessment and Plan (Free Text) Assessment: This is a 76yM with pmhx of DM, HTN, PUD who was admitted with painless jaundice and noted to have a pancreatic head mass with biliary obstruction. Pt with pancreatic head mass s/p EUS and FNB T3N1 with 3 malignant lymph nodes and s/p ERCP with sphincterotomy with a 10mm x40mm fully covered metal stent. 1. Pancreatic Head Mass 2. Biliary Obstruction-CBD 10mm 3. Painless Jaundice 4. DM 5. HTN Plan: -Continue supportive care, monitor for any signs of infection or bleeding- asymptomatic at this time -Followup on labs this am and trend TBili and LFTs -Ordered Abdominal Xray this am to evaluate stent placement -Tolerating Diet -Constipation-will add Miralax daily and dulcolax one time dose -Pt will followup on FNB of pancreatic head mass as an outpt and further plan of care recommendations based on pathology results <Benito Choe - Last Filed: 03/19/17 08:18> Objective - Vital Signs/Intake and Output Vital Signs (last 24 hours): Temp Pulse Resp BP Pulse Ox 98.3 F 63 20 147/75 97 03/18/17 23:15 03/18/17 23:15 03/18/17 23:15 03/18/17 23:15 03/18/17 23:15 - Medications Medications: Current Medications Amlodipine Besylate (Norvasc) 10 mg PO DAILY [facility] Last Admin: 03/18/17 09:23 Dose: 10 mg Diphenhydramine HCl (Benadryl) 25 mg PO Q6 PRN PRN Reason: Itching / Pruritus Last Admin: 03/14/17 17:19 Dose: 25 mg Enoxaparin Sodium (Lovenox) 40 mg SC DAILY [facility] Last Admin: 03/16/17 09:20 Dose: 40 mg Insulin Aspart (Novolog) 0 unit SC ACHS [facility] PRN Reason: Protocol Last Admin: 03/19/17 08:02 Dose: 1 unit Labetalol HCl (Trandate) 200 mg PO BID [facility] Last Admin: 03/18/17 17:32 Dose: 200 mg Levetiracetam (Keppra) 500 mg PO BID [facility] Last Admin: 03/18/17 17:32 Dose: 500 mg Multivitamins (Hexavitamin) 1 tab PO DAILY [facility] Last Admin: 03/18/17 09:23 Dose: 1 tab Pantoprazole Sodium (Protonix Ec Tab) 40 mg PO DAILY [facility] Last Admin: 03/18/17 09:23 Dose: 40 mg Polyethylene Glycol (Miralax) 17 gm PO DAILY [facility] - Labs Labs: 03/18/17 11:55 03/19/17 07:39 PT 15.3 SECONDS (9.7-12.2) H D 03/17/17 05:56 INR 1.4 D 03/17/17 05:56 APTT 37 SECONDS (21-34) H 03/13/17 19:39 Attending/Attestation - Attestation I have personally seen and examined this patient.: Yes I have fully participated in the care of the patient.: Yes I have reviewed all pertinent clinical information, including history, physical exam and plan: Yes Notes (Text): 03/19/17 08:16 76 year old male with h/o DM, HTN, h/o PUD admitted with jaundice, found to have pancreatic head mass and biliary obstruction. 1. Pancreatic mass 2. Biliary obstruction Plan: -s/p EUS with FNB and ERCP with sphincterotomy/stent placement -awaiting pathology -EUS demonstrated caren lymphadenopathy and portal vein involvement (T3N1) -jaundice not improving as expected, may need stent revision -abdominal x ray reviewed, stent is in the same position -may need to place a larger stent if jaundice doesn't improve by tomorrow/Gab -no other apparent complications from ercp -encourage increased po intake -bowel regimen for constipation
[2017-03-19] MEDS ORDERED: Bisacodyl 5mg EC Tab PO ONE (06:33)
[2017-03-19 08:00] LABS: CHLORIDE 102 mmol/L (98-107); SODIUM 136 mmol/L (132-148)
[2017-03-19 08:01] LABS: POTASSIUM 3.4 mmol/L (3.6-5.2)
[2017-03-19] MEDS: (Novolog) Insulin Aspart, Recombinant 100 u/ml 10 ml vial SC SCH ×4 (08:02→22:00)
[2017-03-19 08:03] LABS: ALB/GLOB RATIO 0.7 (1.0-2.1); ALKALINE PHOSPHATASE 149 U/L (38-126); ALT/SGPT 93 U/L (21-72); AST/SGOT 89 U/L (17-59); BILIRUBIN,TOTAL 22.7 mg/dL (0.2-1.3); BLOOD UREA NITROGEN 13 mg/dL (9-20); CARBON DIOXIDE 20 mmol/L (22-30); GFR AFRICAN-AMERICAN > 60; GLUCOSE,RANDOM 142 mg/dL (75-110); TOTAL PROTEIN 6.6 g/dL (6.3-8.3)
[2017-03-19 08:04] LABS: CALCIUM 8.3 mg/dl (8.6-10.4)
[2017-03-19] MEDS: Pantoprazole 40 mg EC Tab PO SCH (09:28)
[2017-03-19] MEDS: Piperacill/Tazo 3.375gm in Dex 3.375 GM/50 ML BAG IVPB SCH ×3 (09:29→21:36)
[2017-03-19] MEDS: Multiple Vitamins Tab PO SCH (09:29)
[2017-03-19] MEDS: POLYETHYLENE GLYCOL 3350 17 GM/Dose PACKET PO SCH (09:30)
--- NOTE | 2017-03-19 14:19 | RAD ---
HISTORY: Biliary stent placement COMPARISON: No prior. FINDINGS: BOWEL: Gas seen filling various larger small-bowel loops space function simply post endoscopy. An early ileus is difficult to completely exclude a small-bowel obstruction not favored. No free air. The wall stent is identified at the right upper quadrant medially, correspond to the patient's known biliary stent deployment. Urinary bladder is distended with excreted intravenous contrast and retained oral contrast seen in the rectum from prior CT examination 03/11/2017. BONES: Normal. OTHER FINDINGS: Phleboliths like calcifications in the inferior pelvis soft tissues. IMPRESSION: Wallstent is identified in the right upper quadrant likely within the lower segment of the extrahepatic biliary tree as suggested. No definite free intrarenal gas is encounter. Gaseous distension of bowel loops is noted diffusely, possibly on the basis of prior endoscopy. Ileus or distal large bowel obstruction is not favored. Clinically correlate.
--- NOTE | 2017-03-19 14:43 | CP.PCM.PN ---
Subjective - Date & Time of Evaluation Date of Evaluation: 03/19/17 Time of Evaluation: 20:00 - Subjective Subjective: Pt seen and examined, labs reviwed, total bilirubin unchanged stent in bile duct didnot worked, pt is for repeat endoscopic U/S and ERCP on friday, meanwhile we shall continue medical managment Objective - Vital Signs/Intake and Output Vital Signs (last 24 hours): Temp Pulse Resp BP Pulse Ox 97.9 F 75 20 155/85 H 97 03/19/17 08:53 03/19/17 08:53 03/19/17 08:53 03/19/17 08:53 03/19/17 08:53 - Medications Medications: Current Medications Amlodipine Besylate (Norvasc) 10 mg PO DAILY [facility] Last Admin: 03/19/17 09:29 Dose: 10 mg Diphenhydramine HCl (Benadryl) 25 mg PO Q6 PRN PRN Reason: Itching / Pruritus Last Admin: 03/14/17 17:19 Dose: 25 mg Enoxaparin Sodium (Lovenox) 40 mg SC DAILY [facility] Last Admin: 03/16/17 09:20 Dose: 40 mg Piperacillin Sod/Tazobactam Sod (Zosyn 3.375 Gm Iv Premix) 3.375 gm in 50 mls @ 100 mls/hr IVPB Q6H [facility] Last Admin: 03/19/17 09:29 Dose: 100 mls/hr Potassium Chloride (Potassium Chloride 20 Meq/100 Ml) 20 meq in 100 mls @ 50 mls/hr IVPB ONCE ONE Stop: 03/19/17 16:18 Last Admin: 03/19/17 14:38 Dose: 50 mls/hr Insulin Aspart (Novolog) 0 unit SC ACHS [facility] PRN Reason: Protocol Last Admin: 03/19/17 13:44 Dose: 2 unit Labetalol HCl (Trandate) 200 mg PO BID [facility] Last Admin: 03/19/17 09:30 Dose: 200 mg Levetiracetam (Keppra) 500 mg PO BID [facility] Last Admin: 03/19/17 09:29 Dose: 500 mg Multivitamins (Hexavitamin) 1 tab PO DAILY [facility] Last Admin: 03/19/17 09:29 Dose: 1 tab Pantoprazole Sodium (Protonix Ec Tab) 40 mg PO DAILY [facility] Last Admin: 03/19/17 09:28 Dose: 40 mg Polyethylene Glycol (Miralax) 17 gm PO DAILY [facility] Last Admin: 03/19/17 09:30 Dose: 17 gm - Labs Labs: 03/18/17 11:55 03/19/17 07:39 PT 15.3 SECONDS (9.7-12.2) H D 03/17/17 05:56 INR 1.4 D 03/17/17 05:56 APTT 37 SECONDS (21-34) H 03/13/17 19:39 - Constitutional Appears: No Acute Distress - Head Exam Head Exam: ATRAUMATIC, NORMAL INSPECTION, NORMOCEPHALIC - Eye Exam Eye Exam: EOMI, Normal appearance, PERRL Pupil Exam: NORMAL ACCOMODATION, PERRL - Respiratory Exam Respiratory Exam: Clear to Ausculation Bilateral - Cardiovascular Exam Cardiovascular Exam: +S1, +S2, Murmur - GI/Abdominal Exam GI & Abdominal Exam: Soft, Normal Bowel Sounds. absent: Tenderness Assessment and Plan (1) Biliary obstruction Status: Acute (2) Diabetes Status: Acute (3) HTN (hypertension) Status: Acute (4) Pancreatic abnormality Status: Acute (5) Seizure Status: Acute
--- NOTE | 2017-03-19 17:18 | CP.PCM.PN ---
Subjective - Date & Time of Evaluation Date of Evaluation: 03/19/17 Time of Evaluation: 17:18 - Subjective Subjective: PLAN FOR D/C WAS DISCUSSED WITH GLO PINZON YESTERDAY. UPON REVIEW OF THE CHART THIS MORNING, DR. RAMEY OFFERS PLAN FOR POSS CHANGE OF STENT ON FRIDAY. I CONFIRMED THIS VIA TELEPHONE WITH HIM BECAUSE DR. SUMNER'S NOTE STATES GI SIGNED OFF YESTERDAY. PER DR. RAMEY PLEASE HOLD D/C. I DISCUSSED THIS WITH PT, , AND SON ZENA AND THEY ARE ALL AWARE AND IN AGREEMENT WITH PLAN. I HAVE NOTIFIED DR. HO WELL. LABS FOR TOMORROW AM ORDERED. NO FURTHER ORDERS. Objective - Vital Signs/Intake and Output Vital Signs (last 24 hours): Temp Pulse Resp BP Pulse Ox 98.1 F 60 20 126/73 98 03/19/17 16:05 03/19/17 16:05 03/19/17 16:05 03/19/17 16:05 03/19/17 16:05 Intake and Output: 03/19/17 03/19/17 06:59 18:59 Intake Total 400 Balance 400 - Medications Medications: Current Medications Amlodipine Besylate (Norvasc) 10 mg PO DAILY [facility] Last Admin: 03/19/17 09:29 Dose: 10 mg Diphenhydramine HCl (Benadryl) 25 mg PO Q6 PRN PRN Reason: Itching / Pruritus Last Admin: 03/14/17 17:19 Dose: 25 mg Enoxaparin Sodium (Lovenox) 40 mg SC DAILY [facility] Last Admin: 03/16/17 09:20 Dose: 40 mg Piperacillin Sod/Tazobactam Sod (Zosyn 3.375 Gm Iv Premix) 3.375 gm in 50 mls @ 100 mls/hr IVPB Q6H [facility] Last Admin: 03/19/17 16:35 Dose: 100 mls/hr Insulin Aspart (Novolog) 0 unit SC ACHS [facility] PRN Reason: Protocol Last Admin: 03/19/17 13:44 Dose: 2 unit Labetalol HCl (Trandate) 200 mg PO BID [facility] Last Admin: 03/19/17 09:30 Dose: 200 mg Levetiracetam (Keppra) 500 mg PO BID [facility] Last Admin: 03/19/17 09:29 Dose: 500 mg Multivitamins (Hexavitamin) 1 tab PO DAILY [facility] Last Admin: 03/19/17 09:29 Dose: 1 tab Pantoprazole Sodium (Protonix Ec Tab) 40 mg PO DAILY [facility] Last Admin: 03/19/17 09:28 Dose: 40 mg Polyethylene Glycol (Miralax) 17 gm PO DAILY [facility] Last Admin: 03/19/17 09:30 Dose: 17 gm - Labs Labs: 03/18/17 11:55 03/19/17 07:39 PT 15.3 SECONDS (9.7-12.2) H D 03/17/17 05:56 INR 1.4 D 03/17/17 05:56 APTT 37 SECONDS (21-34) H 03/13/17 19:39
--- NOTE | 2017-03-19 22:24 | CP.PCM.PN ---
Subjective - Date & Time of Evaluation Date of Evaluation: 03/19/17 Time of Evaluation: 09:05 - Subjective Subjective: Patient seen and evaluated No cardiac events Objective - Vital Signs/Intake and Output Vital Signs (last 24 hours): Temp Pulse Resp BP Pulse Ox 98.1 F 60 20 126/73 98 03/19/17 16:05 03/19/17 16:05 03/19/17 16:05 03/19/17 16:05 03/19/17 16:05 Intake and Output: 03/19/17 03/20/17 18:59 06:59 Intake Total 400 Balance 400 - Medications Medications: Current Medications Amlodipine Besylate (Norvasc) 10 mg PO DAILY [facility] Last Admin: 03/19/17 09:29 Dose: 10 mg Diphenhydramine HCl (Benadryl) 25 mg PO Q6 PRN PRN Reason: Itching / Pruritus Last Admin: 03/14/17 17:19 Dose: 25 mg Enoxaparin Sodium (Lovenox) 40 mg SC DAILY [facility] Last Admin: 03/16/17 09:20 Dose: 40 mg Piperacillin Sod/Tazobactam Sod (Zosyn 3.375 Gm Iv Premix) 3.375 gm in 50 mls @ 100 mls/hr IVPB Q6H [facility] Last Admin: 03/19/17 21:36 Dose: 100 mls/hr Insulin Aspart (Novolog) 0 unit SC ACHS [facility] PRN Reason: Protocol Last Admin: 03/19/17 17:57 Dose: 1 unit Labetalol HCl (Trandate) 200 mg PO BID [facility] Last Admin: 03/19/17 17:53 Dose: 200 mg Levetiracetam (Keppra) 500 mg PO BID [facility] Last Admin: 03/19/17 17:53 Dose: 500 mg Multivitamins (Hexavitamin) 1 tab PO DAILY [facility] Last Admin: 03/19/17 09:29 Dose: 1 tab Pantoprazole Sodium (Protonix Ec Tab) 40 mg PO DAILY [facility] Last Admin: 03/19/17 09:28 Dose: 40 mg Polyethylene Glycol (Miralax) 17 gm PO DAILY [facility] Last Admin: 03/19/17 09:30 Dose: 17 gm - Labs Labs: 03/18/17 11:55 03/19/17 07:39 PT 15.3 SECONDS (9.7-12.2) H D 03/17/17 05:56 INR 1.4 D 03/17/17 05:56 APTT 37 SECONDS (21-34) H 03/13/17 19:39
[2017-03-20] MEDS: Piperacill/Tazo 3.375gm in Dex 3.375 GM/50 ML BAG IVPB SCH ×4 (03:02→21:58)
--- NOTE | 2017-03-20 07:02 | CP.PCM.PN ---
<Amarilis Nieto - Last Filed: 03/20/17 09:00> Subjective - Date & Time of Evaluation Date of Evaluation: 03/20/17 Time of Evaluation: 06:15 - Subjective Subjective: GI Fellow PGY4 Progress Note Pt seen and evaluated at bedside, pt denies any fevers, chills, abdominal pain, nausea or vomiting. Pt says he still feels bloated, with small BM yesterday and is passing gas. Pt's reports dark colored urine but no dysuria. No issues post procedure. ROS: A 12pt ROS was obtained and was negative except as above. Objective - Vital Signs/Intake and Output Vital Signs (last 24 hours): Temp Pulse Resp BP Pulse Ox 97.8 F 62 18 129/69 98 03/20/17 01:00 03/20/17 01:00 03/20/17 01:00 03/20/17 01:00 03/20/17 01:00 - Medications Medications: Current Medications Amlodipine Besylate (Norvasc) 10 mg PO DAILY [facility] Last Admin: 03/19/17 09:29 Dose: 10 mg Bisacodyl (Dulcolax) 5 mg PO ONCE ONE Stop: 03/20/17 06:59 Diphenhydramine HCl (Benadryl) 25 mg PO Q6 PRN PRN Reason: Itching / Pruritus Last Admin: 03/14/17 17:19 Dose: 25 mg Enoxaparin Sodium (Lovenox) 40 mg SC DAILY [facility] Last Admin: 03/16/17 09:20 Dose: 40 mg Piperacillin Sod/Tazobactam Sod (Zosyn 3.375 Gm Iv Premix) 3.375 gm in 50 mls @ 100 mls/hr IVPB Q6H [facility] Last Admin: 03/20/17 03:02 Dose: 100 mls/hr Insulin Aspart (Novolog) 0 unit SC ACHS [facility] PRN Reason: Protocol Last Admin: 03/19/17 22:00 Dose: Not Given Labetalol HCl (Trandate) 200 mg PO BID [facility] Last Admin: 03/19/17 17:53 Dose: 200 mg Levetiracetam (Keppra) 500 mg PO BID [facility] Last Admin: 03/19/17 17:53 Dose: 500 mg Multivitamins (Hexavitamin) 1 tab PO DAILY [facility] Last Admin: 03/19/17 09:29 Dose: 1 tab Pantoprazole Sodium (Protonix Ec Tab) 40 mg PO DAILY [facility] Last Admin: 03/19/17 09:28 Dose: 40 mg Polyethylene Glycol (Miralax) 17 gm PO DAILY [facility] Last Admin: 03/19/17 09:30 Dose: 17 gm - Labs Labs: 03/18/17 11:55 03/19/17 07:39 PT 15.3 SECONDS (9.7-12.2) H D 03/17/17 05:56 INR 1.4 D 03/17/17 05:56 APTT 37 SECONDS (21-34) H 03/13/17 19:39 - Constitutional Appears: Non-toxic, No Acute Distress - Head Exam Head Exam: ATRAUMATIC, NORMAL INSPECTION, NORMOCEPHALIC - Eye Exam Eye Exam: EOMI, PERRL, Scleral icterus Pupil Exam: PERRL - ENT Exam ENT Exam: Mucous Membranes Moist, Normal Exam - Neck Exam Neck Exam: Full ROM, Normal Inspection - Respiratory Exam Respiratory Exam: Clear to Ausculation Bilateral, NORMAL BREATHING PATTERN - Cardiovascular Exam Cardiovascular Exam: RRR, +S1, +S2 - GI/Abdominal Exam GI & Abdominal Exam: Distended, Soft, Normal Bowel Sounds, Organomegaly. absent : Tenderness - Rectal Exam Rectal Exam: Deferred - Extremities Exam Extremities Exam: Full ROM, Normal Inspection. absent: Pedal Edema - Back Exam Back Exam: NORMAL INSPECTION - Neurological Exam Neurological Exam: Alert, Awake, Oriented x3 - Psychiatric Exam Psychiatric exam: Normal Affect, Normal Mood - Skin Skin Exam: Dry, Intact, Warm Additional comments: Jaundice Assessment and Plan - Assessment and Plan (Free Text) Assessment: This is a 76yM with pmhx of DM, HTN, PUD who was admitted with painless jaundice and noted to have a pancreatic head mass with biliary obstruction. Pt with pancreatic head mass s/p EUS and FNB T3N1 with 3 malignant lymph nodes and s/p ERCP with sphincterotomy with a 10mm x40mm fully covered metal stent. 1. Pancreatic Head Mass-Invasive Adenocarcinoma 2. Biliary Obstruction-CBD 10mm 3. Painless Jaundice 4. DM 5. HTN Plan: -Invasive Adenocarcinoma Pancreatic head mass-discussed with pt followup with Oncologist and Surgical team at [facility] -Jaundice not improving, will need stent revision tomorrow, scheduled for ERCP -Pt started on IV Zosyn to prevent any infection development s/p stent placement and TBili is not improving-asymptomatic at this time -Followup on labs this am and trend TBili and LFTs -Abdominal Xray shows correct stent placement -Tolerating Diet-add supplements -Constipation-Miralax daily and add dulcolax one time dose <Yousuf López - Last Filed: 03/20/17 09:30> Objective - Vital Signs/Intake and Output Vital Signs (last 24 hours): Temp Pulse Resp BP Pulse Ox 98.6 F 70 18 135/76 94 L 03/20/17 08:04 03/20/17 08:04 03/20/17 08:04 03/20/17 08:04 03/20/17 08:04 - Medications Medications: Current Medications Amlodipine Besylate (Norvasc) 10 mg PO DAILY [facility] Last Admin: 03/19/17 09:29 Dose: 10 mg Diphenhydramine HCl (Benadryl) 25 mg PO Q6 PRN PRN Reason: Itching / Pruritus Last Admin: 03/14/17 17:19 Dose: 25 mg Enoxaparin Sodium (Lovenox) 40 mg SC DAILY [facility] Last Admin: 03/16/17 09:20 Dose: 40 mg Piperacillin Sod/Tazobactam Sod (Zosyn 3.375 Gm Iv Premix) 3.375 gm in 50 mls @ 100 mls/hr IVPB Q6H [facility] Last Admin: 03/20/17 03:02 Dose: 100 mls/hr Insulin Aspart (Novolog) 0 unit SC ACHS [facility] PRN Reason: Protocol Last Admin: 03/19/17 22:00 Dose: Not Given Labetalol HCl (Trandate) 200 mg PO BID [facility] Last Admin: 03/19/17 17:53 Dose: 200 mg Levetiracetam (Keppra) 500 mg PO BID [facility] Last Admin: 03/19/17 17:53 Dose: 500 mg Multivitamins (Hexavitamin) 1 tab PO DAILY [facility] Last Admin: 03/19/17 09:29 Dose: 1 tab Pantoprazole Sodium (Protonix Ec Tab) 40 mg PO DAILY [facility] Last Admin: 03/19/17 09:28 Dose: 40 mg Polyethylene Glycol (Miralax) 17 gm PO DAILY [facility] Last Admin: 03/19/17 09:30 Dose: 17 gm - Labs Labs: 03/20/17 08:23 03/20/17 08:23 PT 15.3 SECONDS (9.7-12.2) H D 03/17/17 05:56 INR 1.4 D 03/17/17 05:56 APTT 37 SECONDS (21-34) H 03/13/17 19:39 Attending/Attestation - Attestation I have personally seen and examined this patient.: Yes I have fully participated in the care of the patient.: Yes I have reviewed all pertinent clinical information, including history, physical exam and plan: Yes Notes (Text): 03/20/17 09:26 I have seen and examined patient with GI fellow. No acute events overnight, he is seen resting in bed comfortably. He endorses mild epigastric discomfort with bloating but otherwise denies nausea, vomiting, fever/chills. Tolerating PO diet without difficulty. Review of vitals from today are normal. DM / HTN Obstructive jaundice, pancreatic head lesion s/p EUS/FNB, ERCP with stent placement - Biopsies from lesion show adenocarcinoma - Bilirubin remains elevated despite stent placement, plan for repeat ERCP with revision/longer stent placement tomorrow by Dr. Choe - Continue with antibiotic therapy - LFTs stable, continue to monitor - Diet as tolerated, NPO after midnight - Following hospital discharge, patient will follow up with medical/oncology team at [facility] in [place] as per family request
[2017-03-20] MEDS: (Novolog) Insulin Aspart, Recombinant 100 u/ml 10 ml vial SC SCH ×4 (08:00→21:30)
[2017-03-20] MEDS ORDERED: Bisacodyl 5mg EC Tab PO ONE (08:00)
[2017-03-20 08:29] LABS: HEMATOCRIT 32.9 % (35.0-51.0); MEAN CELL VOLUME 85.9 fL (80.0-94.0); MEAN CORPUSCULAR HEMOGLOBIN 29.7 pg (27.0-31.0); MEAN CORPUSCULAR HGB CONC 34.6 g/dL (33.0-37.0); MEAN PLATELET VOLUME 9.7 fL (7.2-11.7); RED CELL DISTRIBUTION WIDTH 17.6 % (11.5-14.5); WHITE BLOOD COUNT 8.9 K/uL (4.8-10.8)
[2017-03-20 08:47] LABS: CHLORIDE 101 mmol/L (98-107)
[2017-03-20 08:48] LABS: POTASSIUM 3.2 mmol/L (3.6-5.2); SODIUM 133 mmol/L (132-148)
[2017-03-20 08:50] LABS: ALB/GLOB RATIO 0.7 (1.0-2.1); ALKALINE PHOSPHATASE 133 U/L (38-126); AST/SGOT 87 U/L (17-59); BILIRUBIN,TOTAL 20.9 mg/dL (0.2-1.3); BLOOD UREA NITROGEN 13 mg/dL (9-20); CARBON DIOXIDE 21 mmol/L (22-30); GFR AFRICAN-AMERICAN > 60; TOTAL PROTEIN 6.2 g/dL (6.3-8.3)
[2017-03-20 08:51] LABS: ALT/SGPT 85 U/L (21-72); CALCIUM 7.8 mg/dl (8.6-10.4); GLUCOSE,RANDOM 128 mg/dL (75-110)
[2017-03-20] MEDS: Pantoprazole 40 mg EC Tab PO SCH (10:59)
[2017-03-20] MEDS: Multiple Vitamins Tab PO SCH (10:59)
[2017-03-20] MEDS: POLYETHYLENE GLYCOL 3350 17 GM/Dose PACKET PO SCH (10:59)
[2017-03-20] MEDS ORDERED: Potassium Chloride 20 mEq/15 ml LIQ UD PO ONE (11:30)
--- NOTE | 2017-03-20 21:03 | CP.PCM.PN ---
Subjective - Date & Time of Evaluation Date of Evaluation: 03/20/17 Time of Evaluation: 08:20 - Subjective Subjective: Patient seen and evaluated No cardiac symptoms GI work up in progress Objective - Vital Signs/Intake and Output Vital Signs (last 24 hours): Temp Pulse Resp BP Pulse Ox 98.2 F 59 L 20 121/69 97 03/20/17 15:47 03/20/17 15:47 03/20/17 15:47 03/20/17 15:47 03/20/17 15:47 - Medications Medications: Current Medications Amlodipine Besylate (Norvasc) 10 mg PO DAILY [facility] Last Admin: 03/20/17 10:58 Dose: 10 mg Diphenhydramine HCl (Benadryl) 25 mg PO Q6 PRN PRN Reason: Itching / Pruritus Last Admin: 03/14/17 17:19 Dose: 25 mg Enoxaparin Sodium (Lovenox) 40 mg SC DAILY [facility] Last Admin: 03/16/17 09:20 Dose: 40 mg Piperacillin Sod/Tazobactam Sod (Zosyn 3.375 Gm Iv Premix) 3.375 gm in 50 mls @ 100 mls/hr IVPB Q6H [facility] Last Admin: 03/20/17 16:00 Dose: 100 mls/hr Insulin Aspart (Novolog) 0 unit SC ACHS [facility] PRN Reason: Protocol Last Admin: 03/20/17 17:00 Dose: 2 unit Labetalol HCl (Trandate) 200 mg PO BID [facility] Last Admin: 03/20/17 17:45 Dose: 200 mg Levetiracetam (Keppra) 500 mg PO BID [facility] Last Admin: 03/20/17 17:45 Dose: 500 mg Multivitamins (Hexavitamin) 1 tab PO DAILY [facility] Last Admin: 03/20/17 10:59 Dose: 1 tab Pantoprazole Sodium (Protonix Ec Tab) 40 mg PO DAILY [facility] Last Admin: 03/20/17 10:59 Dose: 40 mg Polyethylene Glycol (Miralax) 17 gm PO DAILY [facility] Last Admin: 03/20/17 10:59 Dose: 17 gm - Labs Labs: 03/20/17 08:23 03/20/17 08:23 PT 15.3 SECONDS (9.7-12.2) H D 03/17/17 05:56 INR 1.4 D 03/17/17 05:56 APTT 37 SECONDS (21-34) H 03/13/17 19:39
--- NOTE | 2017-03-20 21:28 | CP.PCM.PN ---
Subjective - Date & Time of Evaluation Date of Evaluation: 03/20/17 Time of Evaluation: 09:00 - Subjective Subjective: Pt seen and examined at bedside, is for ERCP tommorow morning Objective - Vital Signs/Intake and Output Vital Signs (last 24 hours): Temp Pulse Resp BP Pulse Ox 98.2 F 59 L 20 121/69 97 03/20/17 15:47 03/20/17 15:47 03/20/17 15:47 03/20/17 15:47 03/20/17 15:47 - Medications Medications: Current Medications Amlodipine Besylate (Norvasc) 10 mg PO DAILY [facility] Last Admin: 03/20/17 10:58 Dose: 10 mg Diphenhydramine HCl (Benadryl) 25 mg PO Q6 PRN PRN Reason: Itching / Pruritus Last Admin: 03/14/17 17:19 Dose: 25 mg Enoxaparin Sodium (Lovenox) 40 mg SC DAILY [facility] Last Admin: 03/16/17 09:20 Dose: 40 mg Piperacillin Sod/Tazobactam Sod (Zosyn 3.375 Gm Iv Premix) 3.375 gm in 50 mls @ 100 mls/hr IVPB Q6H [facility] Last Admin: 03/20/17 16:00 Dose: 100 mls/hr Insulin Aspart (Novolog) 0 unit SC ACHS [facility] PRN Reason: Protocol Last Admin: 03/20/17 17:00 Dose: 2 unit Labetalol HCl (Trandate) 200 mg PO BID [facility] Last Admin: 03/20/17 17:45 Dose: 200 mg Levetiracetam (Keppra) 500 mg PO BID [facility] Last Admin: 03/20/17 17:45 Dose: 500 mg Multivitamins (Hexavitamin) 1 tab PO DAILY [facility] Last Admin: 03/20/17 10:59 Dose: 1 tab Pantoprazole Sodium (Protonix Ec Tab) 40 mg PO DAILY [facility] Last Admin: 03/20/17 10:59 Dose: 40 mg Polyethylene Glycol (Miralax) 17 gm PO DAILY [facility] Last Admin: 03/20/17 10:59 Dose: 17 gm - Labs Labs: 03/20/17 08:23 03/20/17 08:23 PT 15.3 SECONDS (9.7-12.2) H D 03/17/17 05:56 INR 1.4 D 03/17/17 05:56 APTT 37 SECONDS (21-34) H 03/13/17 19:39 - Constitutional Appears: No Acute Distress, Chronically Ill - Head Exam Head Exam: ATRAUMATIC, NORMAL INSPECTION, NORMOCEPHALIC - Eye Exam Eye Exam: EOMI, Normal appearance, PERRL Pupil Exam: NORMAL ACCOMODATION, PERRL - ENT Exam ENT Exam: Mucous Membranes Moist - Neck Exam Neck Exam: Full ROM, Normal Inspection. absent: Lymphadenopathy - Respiratory Exam Respiratory Exam: Clear to Ausculation Bilateral, NORMAL BREATHING PATTERN - Cardiovascular Exam Cardiovascular Exam: REGULAR RHYTHM, +S1, +S2. absent: Murmur - GI/Abdominal Exam GI & Abdominal Exam: Tenderness, Organomegaly Assessment and Plan (1) Biliary obstruction Status: Acute (2) Diabetes Status: Acute (3) HTN (hypertension) Status: Acute (4) Pancreatic abnormality Status: Acute (5) Seizure Status: Acute
[2017-03-21] MEDS: Piperacill/Tazo 3.375gm in Dex 3.375 GM/50 ML BAG IVPB SCH ×4 (03:01→21:47)
[2017-03-21 06:38] LABS: MEAN PLATELET VOLUME 9.5 fL (7.2-11.7); WHITE BLOOD COUNT 8.8 K/uL (4.8-10.8)
[2017-03-21 06:47] LABS: INR 1.4
[2017-03-21 07:13] LABS: CHLORIDE 99 mmol/L (98-107); POTASSIUM 3.7 mmol/L (3.6-5.2); SODIUM 131 mmol/L (132-148)
[2017-03-21 07:15] LABS: ALB/GLOB RATIO 0.7 (1.0-2.1); AST/SGOT 80 U/L (17-59); BILIRUBIN,TOTAL 21.4 mg/dL (0.2-1.3); CARBON DIOXIDE 22 mmol/L (22-30); GFR AFRICAN-AMERICAN > 60; TOTAL PROTEIN 6.3 g/dL (6.3-8.3)
[2017-03-21 07:16] LABS: ALKALINE PHOSPHATASE 128 U/L (38-126); ALT/SGPT 90 U/L (21-72); BLOOD UREA NITROGEN 13 mg/dL (9-20); CALCIUM 7.6 mg/dl (8.6-10.4); GLUCOSE,RANDOM 134 mg/dL (75-110)
[2017-03-21 07:26] LABS: MEAN CELL VOLUME 86.2 fL (80.0-94.0); MEAN CORPUSCULAR HEMOGLOBIN 29.5 pg (27.0-31.0); MEAN CORPUSCULAR HGB CONC 34.2 g/dL (33.0-37.0); RED CELL DISTRIBUTION WIDTH 17.5 % (11.5-14.5)
[2017-03-21] MEDS: (Novolog) Insulin Aspart, Recombinant 100 u/ml 10 ml vial SC SCH ×4 (07:30→21:45)
[2017-03-21 09:21] LABS: BASO # 0.1 K/uL (0.0-0.2); EOS # 0.4 K/uL (0.0-0.7); LYMPH # 1.6 K/uL (1.0-4.3); MONO # 0.9 K/uL (0.0-0.8)
[2017-03-21] MEDS ORDERED: Iohexol 240 (50 ml) ONE ×2 (10:03→10:04)
[2017-03-21] MEDS ORDERED: Succinylcholine Chloride 20 mg/ml Syr (5 ml) IV ONE (10:16)
[2017-03-21] MEDS ORDERED: Propofol 10 mg/ml Inj (20 ML) ONE (10:16)
[2017-03-21] MEDS ORDERED: ePHEDrine 50 mg/ml Inj ONE (10:43)
[2017-03-21] MEDS: POLYETHYLENE GLYCOL 3350 17 GM/Dose PACKET PO SCH (12:27)
[2017-03-21] MEDS: Multiple Vitamins Tab PO SCH (12:27)
[2017-03-21] MEDS: Pantoprazole 40 mg EC Tab PO SCH (12:27)
[2017-03-21] MEDS: Lactated Ringer's 500 ML IV SCH ×2 (12:35→17:55)
--- NOTE | 2017-03-21 15:21 | RAD ---
PROCEDURE: Intraoperative fluoroscopy HISTORY: PANCREATIC CA. COMPARISON: Not available TECHNIQUE: Intraoperative fluoroscopy was provided for removal and replacement of biliary stent. Total time of fluoroscopy was 44.0 seconds. FINDINGS: Multiple fluoroscopic spot films are submitted. These films are on file for review. IMPRESSION: Fluoroscopy provided.
--- NOTE | 2017-03-21 21:49 | CP.PCM.PN ---
Subjective - Date & Time of Evaluation Date of Evaluation: 03/21/17 Time of Evaluation: 07:05 - Subjective Subjective: Patient with no cardiac events Objective - Vital Signs/Intake and Output Vital Signs (last 24 hours): Temp Pulse Resp BP Pulse Ox 98.1 F 65 20 129/74 97 03/21/17 15:12 03/21/17 18:51 03/21/17 15:12 03/21/17 18:51 03/21/17 15:12 Intake and Output: 03/21/17 03/22/17 18:59 06:59 Intake Total 500 Balance 500 - Medications Medications: Current Medications Amlodipine Besylate (Norvasc) 10 mg PO DAILY [facility] Last Admin: 03/21/17 12:27 Dose: 10 mg Diphenhydramine HCl (Benadryl) 25 mg PO Q6 PRN PRN Reason: Itching / Pruritus Last Admin: 03/14/17 17:19 Dose: 25 mg Enoxaparin Sodium (Lovenox) 40 mg SC DAILY [facility] Last Admin: 03/16/17 09:20 Dose: 40 mg Piperacillin Sod/Tazobactam Sod (Zosyn 3.375 Gm Iv Premix) 3.375 gm in 50 mls @ 100 mls/hr IVPB Q6H [facility] Last Admin: 03/21/17 21:47 Dose: 100 mls/hr Lactated Ringer's (Lactated Ringer's 500ml) 500 mls @ 75 mls/hr IV .Q6H40M [facility] Last Admin: 03/21/17 12:35 Dose: 75 mls/hr Insulin Aspart (Novolog) 0 unit SC ACHS [facility] PRN Reason: Protocol Last Admin: 03/21/17 21:45 Dose: Not Given Labetalol HCl (Trandate) 200 mg PO BID [facility] Last Admin: 03/21/17 18:52 Dose: 200 mg Levetiracetam (Keppra) 500 mg PO BID [facility] Last Admin: 03/21/17 18:52 Dose: 500 mg Multivitamins (Hexavitamin) 1 tab PO DAILY [facility] Last Admin: 03/21/17 12:27 Dose: 1 tab Pantoprazole Sodium (Protonix Ec Tab) 40 mg PO DAILY [facility] Last Admin: 03/21/17 12:27 Dose: 40 mg Polyethylene Glycol (Miralax) 17 gm PO DAILY [facility] Last Admin: 03/21/17 12:27 Dose: 17 gm - Labs Labs: 03/21/17 06:29 03/21/17 06:29 PT 15.9 SECONDS (9.7-12.2) H 03/21/17 06:29 INR 1.4 03/21/17 06:29 APTT 37 SECONDS (21-34) H 03/13/17 19:39
[2017-03-22] MEDS: Lactated Ringer's 500 ML IV SCH ×3 (00:35→17:30)
--- NOTE | 2017-03-22 00:56 | CP.PCM.PN ---
Subjective - Date & Time of Evaluation Date of Evaluation: 03/21/17 Time of Evaluation: 02:00 - Subjective Subjective: Pt seen and evaluated at bedside, pt denies any fevers, chills, abdominal pain, nausea or vomiting. Pt says he still feels bloated, with small BM yesterday and is passing gas. Pt's reports dark colored urine but no dysuria. No issues post procedure. daughter son and sittingon the bed side , all qs answered ROS: A 12pt ROS was obtained and was negative except as above. Objective - Vital Signs/Intake and Output Vital Signs (last 24 hours): Temp Pulse Resp BP Pulse Ox 98.1 F 61 20 125/64 94 L 03/22/17 00:18 03/22/17 00:18 03/22/17 00:18 03/22/17 00:18 03/22/17 00:18 Intake and Output: 03/21/17 03/22/17 18:59 06:59 Intake Total 500 600 Balance 500 600 - Medications Medications: Current Medications Amlodipine Besylate (Norvasc) 10 mg PO DAILY [facility] Last Admin: 03/21/17 12:27 Dose: 10 mg Diphenhydramine HCl (Benadryl) 25 mg PO Q6 PRN PRN Reason: Itching / Pruritus Last Admin: 03/14/17 17:19 Dose: 25 mg Enoxaparin Sodium (Lovenox) 40 mg SC DAILY [facility] Last Admin: 03/16/17 09:20 Dose: 40 mg Piperacillin Sod/Tazobactam Sod (Zosyn 3.375 Gm Iv Premix) 3.375 gm in 50 mls @ 100 mls/hr IVPB Q6H [facility] Last Admin: 03/21/17 21:47 Dose: 100 mls/hr Lactated Ringer's (Lactated Ringer's 500ml) 500 mls @ 75 mls/hr IV .Q6H40M [facility] Last Admin: 03/21/17 17:55 Dose: Not Given Insulin Aspart (Novolog) 0 unit SC ACHS [facility] PRN Reason: Protocol Last Admin: 03/21/17 21:45 Dose: Not Given Labetalol HCl (Trandate) 200 mg PO BID [facility] Last Admin: 03/21/17 18:52 Dose: 200 mg Levetiracetam (Keppra) 500 mg PO BID [facility] Last Admin: 03/21/17 18:52 Dose: 500 mg Multivitamins (Hexavitamin) 1 tab PO DAILY [facility] Last Admin: 03/21/17 12:27 Dose: 1 tab Pantoprazole Sodium (Protonix Ec Tab) 40 mg PO DAILY [facility] Last Admin: 03/21/17 12:27 Dose: 40 mg Polyethylene Glycol (Miralax) 17 gm PO DAILY [facility] Last Admin: 03/21/17 12:27 Dose: 17 gm - Labs Labs: 03/21/17 06:29 03/21/17 06:29 PT 15.9 SECONDS (9.7-12.2) H 03/21/17 06:29 INR 1.4 03/21/17 06:29 APTT 37 SECONDS (21-34) H 03/13/17 19:39 - Constitutional Appears: Well - Head Exam Head Exam: ATRAUMATIC, NORMAL INSPECTION, NORMOCEPHALIC - Eye Exam Eye Exam: EOMI, Normal appearance, PERRL Pupil Exam: NORMAL ACCOMODATION, PERRL - ENT Exam ENT Exam: Mucous Membranes Moist, Normal Exam - Neck Exam Neck Exam: Full ROM, Normal Inspection. absent: Lymphadenopathy - Respiratory Exam Respiratory Exam: Clear to Ausculation Bilateral, NORMAL BREATHING PATTERN - Cardiovascular Exam Cardiovascular Exam: REGULAR RHYTHM, +S1, +S2. absent: Murmur - GI/Abdominal Exam GI & Abdominal Exam: Firm, Normal Bowel Sounds. absent: Tenderness - Rectal Exam Rectal Exam: NORMAL INSPECTION - Exam Exam: Circumcision, NORMAL INSPECTION External exam: NORMAL EXTERNAL EXAM Speculum exam: NORMAL SPECULUM EXAM Bimanual exam: NORMAL BIMANUAL EXAM - Extremities Exam Extremities Exam: Full ROM, Normal Capillary Refill, Normal Inspection. absent : Joint Swelling, Pedal Edema - Back Exam Back Exam: NORMAL INSPECTION - Neurological Exam Neurological Exam: Alert, Awake, CN II-XII Intact, Normal Gait, Oriented x3 - Psychiatric Exam Psychiatric exam: Normal Affect, Normal Mood - Skin Skin Exam: Dry, Intact, Normal Color, Warm Assessment and Plan (1) Biliary obstruction Status: Acute (2) Chest pain Status: Acute (3) Diabetes Status: Acute (4) HTN (hypertension) Status: Acute (5) Pancreatic abnormality Status: Acute (6) Seizure Status: Acute - Assessment and Plan (Free Text) Assessment: This is a 76yM with pmhx of DM, HTN, PUD who was admitted with painless jaundice and noted to have a pancreatic head mass with biliary obstruction. Pt with pancreatic head mass s/p EUS and FNB T3N1 with 3 malignant lymph nodes and s/p ERCP with sphincterotomy with a 10mm x40mm fully covered metal stent. 1. Pancreatic Head Mass-Invasive Adenocarcinoma 2. Biliary Obstruction-CBD 10mm 3. Painless Jaundice 4. DM 5. HTN Plan: -Invasive Adenocarcinoma Pancreatic head mass-discussed with pt followup with Oncologist and Surgical team at [facility] [place] -Jaundice not improving, will need stent revision tomorrow, scheduled for ERCP -Pt started on IV Zosyn to prevent any infection development s/p stent placement and TBili is not improving-asymptomatic at this time -Followup on labs this am and trend TBili and LFTs -Abdominal Xray shows correct stent placement -Tolerating Diet-add supplements -Constipation-Miralax daily and add dulcolax one time dose
[2017-03-22] MEDS: Piperacill/Tazo 3.375gm in Dex 3.375 GM/50 ML BAG IVPB SCH ×4 (02:52→21:01)
[2017-03-22 07:34] LABS: ALB/GLOB RATIO 0.7 (1.0-2.1); ALKALINE PHOSPHATASE 117 U/L (38-126); ALT/SGPT 86 U/L (21-72); AST/SGOT 92 U/L (17-59); BILIRUBIN,TOTAL 19.8 mg/dL (0.2-1.3); BLOOD UREA NITROGEN 15 mg/dL (9-20); CALCIUM 7.8 mg/dl (8.6-10.4); CARBON DIOXIDE 23 mmol/L (22-30); CHLORIDE 98 mmol/L (98-107); GFR AFRICAN-AMERICAN > 60; GLUCOSE,RANDOM 132 mg/dL (75-110); POTASSIUM 3.8 mmol/L (3.6-5.2); SODIUM 134 mmol/L (132-148); TOTAL PROTEIN 6.1 g/dL (6.3-8.3)
[2017-03-22] MEDS: Pantoprazole 40 mg EC Tab PO SCH (09:32)
[2017-03-22] MEDS: Multiple Vitamins Tab PO SCH (09:32)
[2017-03-22] MEDS: POLYETHYLENE GLYCOL 3350 17 GM/Dose PACKET PO SCH (09:32)
[2017-03-22] MEDS: (Novolog) Insulin Aspart, Recombinant 100 u/ml 10 ml vial SC SCH ×4 (09:33→21:05)
--- NOTE | 2017-03-22 20:37 | CP.PCM.PN ---
Subjective - Date & Time of Evaluation Date of Evaluation: 03/22/17 Time of Evaluation: 08:15 - Subjective Subjective: Patient seen and evaluated No cardiac symptoms GI work in progress Objective - Vital Signs/Intake and Output Vital Signs (last 24 hours): Temp Pulse Resp BP Pulse Ox 97.6 F 65 20 117/68 96 03/22/17 15:00 03/22/17 15:00 03/22/17 15:00 03/22/17 15:00 03/22/17 15:00 Intake and Output: 03/22/17 03/23/17 18:59 06:59 Intake Total 940 Balance 940 - Medications Medications: Current Medications Amlodipine Besylate (Norvasc) 10 mg PO DAILY [facility] Last Admin: 03/22/17 09:32 Dose: 10 mg Diphenhydramine HCl (Benadryl) 25 mg PO Q6 PRN PRN Reason: Itching / Pruritus Last Admin: 03/14/17 17:19 Dose: 25 mg Enoxaparin Sodium (Lovenox) 40 mg SC DAILY [facility] Last Admin: 03/16/17 09:20 Dose: 40 mg Piperacillin Sod/Tazobactam Sod (Zosyn 3.375 Gm Iv Premix) 3.375 gm in 50 mls @ 100 mls/hr IVPB Q6H [facility] Last Admin: 03/22/17 15:45 Dose: 100 mls/hr Lactated Ringer's (Lactated Ringer's 500ml) 500 mls @ 75 mls/hr IV .Q6H40M [facility] Last Admin: 03/22/17 17:30 Dose: 75 mls/hr Insulin Aspart (Novolog) 0 unit SC ACHS [facility] PRN Reason: Protocol Last Admin: 03/22/17 17:30 Dose: Not Given Labetalol HCl (Trandate) 200 mg PO BID [facility] Last Admin: 03/22/17 17:29 Dose: 200 mg Levetiracetam (Keppra) 500 mg PO BID [facility] Last Admin: 03/22/17 17:29 Dose: 500 mg Multivitamins (Hexavitamin) 1 tab PO DAILY [facility] Last Admin: 03/22/17 09:32 Dose: 1 tab Pantoprazole Sodium (Protonix Ec Tab) 40 mg PO DAILY [facility] Last Admin: 03/22/17 09:32 Dose: 40 mg Polyethylene Glycol (Miralax) 17 gm PO DAILY [facility] Last Admin: 03/22/17 09:32 Dose: 17 gm - Labs Labs: 03/21/17 06:29 03/22/17 06:57 PT 15.9 SECONDS (9.7-12.2) H 03/21/17 06:29 INR 1.4 03/21/17 06:29 APTT 37 SECONDS (21-34) H 03/13/17 19:39
[2017-03-23] MEDS: Piperacill/Tazo 3.375gm in Dex 3.375 GM/50 ML BAG IVPB SCH (02:43)
[2017-03-23] MEDS: Lactated Ringer's 500 ML IV SCH ×2 (03:15→06:51)
[2017-03-23 08:00] LABS: CHLORIDE 98 mmol/L (98-107); POTASSIUM 3.6 mmol/L (3.6-5.2); SODIUM 135 mmol/L (132-148)
[2017-03-23 08:02] LABS: BILIRUBIN,TOTAL 19.3 mg/dL (0.2-1.3); GFR AFRICAN-AMERICAN > 60
[2017-03-23 08:03] LABS: ALB/GLOB RATIO 0.7 (1.0-2.1); ALKALINE PHOSPHATASE 119 U/L (38-126); ALT/SGPT 86 U/L (21-72); AST/SGOT 97 U/L (17-59); BLOOD UREA NITROGEN 16 mg/dL (9-20); CARBON DIOXIDE 25 mmol/L (22-30); GLUCOSE,RANDOM 135 mg/dL (75-110)
[2017-03-23 08:04] LABS: CALCIUM 7.8 mg/dl (8.6-10.4)
[2017-03-23] MEDS: (Novolog) Insulin Aspart, Recombinant 100 u/ml 10 ml vial SC SCH ×4 (08:18→21:08)
--- NOTE | 2017-03-23 08:28 | CP.PCM.PN ---
Subjective - Date & Time of Evaluation Date of Evaluation: 03/23/17 Time of Evaluation: 08:22 - Subjective Subjective: Patient seen and examined, resting in bed comfortably. No acute events overnight. He denies abdominal pain, nausea, vomiting, fever/chills. He complains of ongoing constipation and has not had a bowel movement in past several days. He is tolerating PO diet, though only consuming scant amounts of food. 12 point review of systems performed, negative aside from mentioned above. Objective - Vital Signs/Intake and Output Vital Signs (last 24 hours): Temp Pulse Resp BP Pulse Ox 98.5 F 62 20 129/73 94 L 03/22/17 23:20 03/22/17 23:20 03/22/17 23:20 03/22/17 23:20 03/22/17 23:20 Intake and Output: 03/23/17 03/23/17 06:59 18:59 Intake Total 1200 Balance 1200 - Medications Medications: Current Medications Amlodipine Besylate (Norvasc) 10 mg PO DAILY [facility] Last Admin: 03/22/17 09:32 Dose: 10 mg Diphenhydramine HCl (Benadryl) 25 mg PO Q6 PRN PRN Reason: Itching / Pruritus Last Admin: 03/14/17 17:19 Dose: 25 mg Docusate Sodium (Colace) 100 mg PO DAILY [facility] Enoxaparin Sodium (Lovenox) 40 mg SC DAILY [facility] Last Admin: 03/16/17 09:20 Dose: 40 mg Lactated Ringer's (Lactated Ringer's 500ml) 500 mls @ 75 mls/hr IV .Q6H40M [facility] Last Admin: 03/23/17 06:51 Dose: 75 mls/hr Insulin Aspart (Novolog) 0 unit SC ACHS [facility] PRN Reason: Protocol Last Admin: 03/23/17 08:18 Dose: 1 unit Labetalol HCl (Trandate) 200 mg PO BID [facility] Last Admin: 03/22/17 17:29 Dose: 200 mg Levetiracetam (Keppra) 500 mg PO BID [facility] Last Admin: 03/22/17 17:29 Dose: 500 mg Mineral Oil (Fleet Mineral Oil Enema) 135 ml RC ONCE ONE Stop: 03/23/17 08:21 Multivitamins (Hexavitamin) 1 tab PO DAILY [facility] Last Admin: 03/22/17 09:32 Dose: 1 tab Pantoprazole Sodium (Protonix Ec Tab) 40 mg PO DAILY [facility] Last Admin: 03/22/17 09:32 Dose: 40 mg Polyethylene Glycol (Miralax) 17 gm PO DAILY [facility] Last Admin: 03/22/17 09:32 Dose: 17 gm - Labs Labs: 03/21/17 06:29 03/23/17 07:40 PT 15.9 SECONDS (9.7-12.2) H 03/21/17 06:29 INR 1.4 03/21/17 06:29 APTT 37 SECONDS (21-34) H 03/13/17 19:39 - Constitutional Appears: Non-toxic, No Acute Distress - Head Exam Head Exam: NORMAL INSPECTION - Eye Exam Eye Exam: EOMI, Scleral icterus - ENT Exam ENT Exam: Mucous Membranes Moist - Respiratory Exam Respiratory Exam: Clear to Ausculation Bilateral - Cardiovascular Exam Cardiovascular Exam: REGULAR RHYTHM, +S1, +S2 - GI/Abdominal Exam GI & Abdominal Exam: Distended, Normal Bowel Sounds Additional comments: non tender to palpation in four quadrants - Extremities Exam Extremities Exam: Normal Inspection - Skin Additional comments: +jaundice Assessment and Plan - Assessment and Plan (Free Text) Assessment: HTN / DM Pancreatic adenocarcinoma - obstructive jaundice s/p ERCP with biliary stent exchange Constipation Plan: - Diet as tolerated - LFTs stable, bilirubin remains elevated, will continue to monitor - Discontinue antibiotic therapy as this may contribute to cholestasis - Mineral oil enema today x 1, maintain aggressive bowel regimen to prevent constipation - Follow up oncology recommendations - Following hospital discharge, [place] [facility] as per family request regarding potential combined surgical/oncology treatment
[2017-03-23] MEDS ORDERED: Mineral Oil Enema 135 ml RC ONE ×2 (08:45→10:15)
[2017-03-23] MEDS: POLYETHYLENE GLYCOL 3350 17 GM/Dose PACKET PO SCH (10:55)
[2017-03-23] MEDS: Pantoprazole 40 mg EC Tab PO SCH (11:20)
[2017-03-23] MEDS: Multiple Vitamins Tab PO SCH (11:21)
--- NOTE | 2017-03-23 18:24 | CP.PCM.PN ---
Subjective - Date & Time of Evaluation Date of Evaluation: 03/23/17 Time of Evaluation: 11:15 - Subjective Subjective: Patient without cardiac events GI work in progress Objective - Vital Signs/Intake and Output Vital Signs (last 24 hours): Temp Pulse Resp BP Pulse Ox 98 F 64 16 132/74 98 03/23/17 16:26 03/23/17 16:26 03/23/17 16:26 03/23/17 16:26 03/23/17 16:26 Intake and Output: 03/23/17 03/23/17 06:59 18:59 Intake Total 1200 Balance 1200 - Medications Medications: Current Medications Amlodipine Besylate (Norvasc) 10 mg PO DAILY [facility] Last Admin: 03/23/17 11:20 Dose: 10 mg Diphenhydramine HCl (Benadryl) 25 mg PO Q6 PRN PRN Reason: Itching / Pruritus Last Admin: 03/14/17 17:19 Dose: 25 mg Docusate Sodium (Colace) 100 mg PO DAILY [facility] Last Admin: 03/23/17 11:20 Dose: 100 mg Enoxaparin Sodium (Lovenox) 40 mg SC DAILY [facility] Last Admin: 03/16/17 09:20 Dose: 40 mg Lactated Ringer's (Lactated Ringer's 500ml) 500 mls @ 75 mls/hr IV .Q6H40M [facility] Last Admin: 03/23/17 06:51 Dose: 75 mls/hr Insulin Aspart (Novolog) 0 unit SC ACHS [facility] PRN Reason: Protocol Last Admin: 03/23/17 18:20 Dose: Not Given Labetalol HCl (Trandate) 200 mg PO BID [facility] Last Admin: 03/23/17 18:20 Dose: 200 mg Levetiracetam (Keppra) 500 mg PO BID [facility] Last Admin: 03/23/17 18:20 Dose: 500 mg Multivitamins (Hexavitamin) 1 tab PO DAILY [facility] Last Admin: 03/23/17 11:21 Dose: 1 tab Pantoprazole Sodium (Protonix Ec Tab) 40 mg PO DAILY [facility] Last Admin: 03/23/17 11:20 Dose: 40 mg Polyethylene Glycol (Miralax) 17 gm PO DAILY [facility] Last Admin: 03/23/17 10:55 Dose: 17 gm - Labs Labs: 03/21/17 06:29 03/23/17 07:40 PT 15.9 SECONDS (9.7-12.2) H 03/21/17 06:29 INR 1.4 03/21/17 06:29 APTT 37 SECONDS (21-34) H 03/13/17 19:39
--- NOTE | 2017-03-24 01:28 | CP.PCM.PN ---
Subjective - Date & Time of Evaluation Date of Evaluation: 03/23/17 Time of Evaluation: 04:00 - Subjective Subjective: 03/23/17 Patient seen and examined, resting in bed comfortably. No acute events overnight. He denies abdominal pain, nausea, vomiting, fever/chills. He complains of ongoing constipation and has not had a bowel movement in past several days. He is tolerating PO diet, though only consuming scant amounts of food. 12 point review of systems performed, negative aside from mentioned above. Objective - Vital Signs/Intake and Output Vital Signs (last 24 hours): Temp Pulse Resp BP Pulse Ox 98 F 64 16 132/74 98 03/23/17 16:26 03/23/17 16:26 03/23/17 16:26 03/23/17 16:26 03/23/17 16:26 - Medications Medications: Current Medications Amlodipine Besylate (Norvasc) 10 mg PO DAILY [facility] Last Admin: 03/23/17 11:20 Dose: 10 mg Diphenhydramine HCl (Benadryl) 25 mg PO Q6 PRN PRN Reason: Itching / Pruritus Last Admin: 03/14/17 17:19 Dose: 25 mg Docusate Sodium (Colace) 100 mg PO DAILY [facility] Last Admin: 03/23/17 11:20 Dose: 100 mg Enoxaparin Sodium (Lovenox) 40 mg SC DAILY [facility] Last Admin: 03/16/17 09:20 Dose: 40 mg Lactated Ringer's (Lactated Ringer's 500ml) 500 mls @ 75 mls/hr IV .Q6H40M [facility] Last Admin: 03/23/17 06:51 Dose: 75 mls/hr Insulin Aspart (Novolog) 0 unit SC ACHS [facility] PRN Reason: Protocol Last Admin: 03/23/17 21:08 Dose: Not Given Labetalol HCl (Trandate) 200 mg PO BID [facility] Last Admin: 03/23/17 18:20 Dose: 200 mg Levetiracetam (Keppra) 500 mg PO BID [facility] Last Admin: 03/23/17 18:20 Dose: 500 mg Multivitamins (Hexavitamin) 1 tab PO DAILY [facility] Last Admin: 03/23/17 11:21 Dose: 1 tab Pantoprazole Sodium (Protonix Ec Tab) 40 mg PO DAILY [facility] Last Admin: 03/23/17 11:20 Dose: 40 mg Polyethylene Glycol (Miralax) 17 gm PO DAILY [facility] Last Admin: 03/23/17 10:55 Dose: 17 gm - Labs Labs: 03/21/17 06:29 03/23/17 07:40 PT 15.9 SECONDS (9.7-12.2) H 03/21/17 06:29 INR 1.4 03/21/17 06:29 APTT 37 SECONDS (21-34) H 03/13/17 19:39 - Constitutional Appears: Well - Head Exam Head Exam: ATRAUMATIC, NORMAL INSPECTION, NORMOCEPHALIC - Eye Exam Eye Exam: EOMI, Normal appearance, PERRL Pupil Exam: NORMAL ACCOMODATION, PERRL - ENT Exam ENT Exam: Mucous Membranes Moist, Normal Exam - Neck Exam Neck Exam: Full ROM, Normal Inspection. absent: Lymphadenopathy - Respiratory Exam Respiratory Exam: Clear to Ausculation Bilateral, NORMAL BREATHING PATTERN - Cardiovascular Exam Cardiovascular Exam: REGULAR RHYTHM, +S1, +S2. absent: Murmur - GI/Abdominal Exam GI & Abdominal Exam: Soft, Normal Bowel Sounds. absent: Tenderness - Extremities Exam Extremities Exam: Full ROM, Normal Capillary Refill, Normal Inspection. absent : Joint Swelling, Pedal Edema - Back Exam Back Exam: NORMAL INSPECTION - Neurological Exam Neurological Exam: Alert, Awake, CN II-XII Intact, Normal Gait, Oriented x3 - Psychiatric Exam Psychiatric exam: Normal Affect, Normal Mood - Skin Skin Exam: Dry, Intact, Normal Color, Warm Assessment and Plan (1) Biliary obstruction Status: Acute (2) Chest pain Status: Acute (3) Diabetes Status: Acute (4) HTN (hypertension) Assessment & Plan: Assessment and Plan HTN / DM Pancreatic adenocarcinoma - obstructive jaundice s/p ERCP with biliary stent exchange Constipation Plan: - Diet as tolerated - LFTs stable, bilirubin remains elevated, will continue to monitor - Discontinue antibiotic therapy as this may contribute to cholestasis - Mineral oil enema today x 1, maintain aggressive bowel regimen to prevent constipation - Follow up oncology recommendations - Following hospital discharge, patient [place] [facility] as per family request regarding potential combined surgical/oncology treatment Status: Acute (5) Pancreatic abnormality Status: Acute (6) Seizure Status: Acute
[2017-03-24] MEDS: (Novolog) Insulin Aspart, Recombinant 100 u/ml 10 ml vial SC SCH ×4 (08:11→21:26)
--- NOTE | 2017-03-24 09:08 | CP.PCM.PN ---
<Amarilis Nieto - Last Filed: 03/24/17 10:06> Subjective - Date & Time of Evaluation Date of Evaluation: 03/24/17 Time of Evaluation: 06:15 - Subjective Subjective: GI Fellow PGY4 Progress Note Pt seen and evaluated at beside, pt reports abdominal bloating with a very small BM after enema, pt is passing a small amount of gas. No fevers, chills, nausea or vomiting. Very poor appetite per , only drinking 2 glucerna daily. ROS: A 12pt ROS was obtained and was negative except as above. Objective - Vital Signs/Intake and Output Vital Signs (last 24 hours): Temp Pulse Resp BP Pulse Ox 98.3 F 64 18 129/81 95 03/24/17 08:02 03/24/17 08:02 03/24/17 08:02 03/24/17 08:02 03/24/17 08:02 - Medications Medications: Current Medications Amlodipine Besylate (Norvasc) 10 mg PO DAILY [facility] Last Admin: 03/23/17 11:20 Dose: 10 mg Diphenhydramine HCl (Benadryl) 25 mg PO Q6 PRN PRN Reason: Itching / Pruritus Last Admin: 03/14/17 17:19 Dose: 25 mg Docusate Sodium (Colace) 100 mg PO DAILY [facility] Last Admin: 03/23/17 11:20 Dose: 100 mg Enoxaparin Sodium (Lovenox) 40 mg SC DAILY [facility] Last Admin: 03/16/17 09:20 Dose: 40 mg Lactated Ringer's (Lactated Ringer's 500ml) 500 mls @ 75 mls/hr IV .Q6H40M [facility] Last Admin: 03/23/17 06:51 Dose: 75 mls/hr Insulin Aspart (Novolog) 0 unit SC ACHS [facility] PRN Reason: Protocol Last Admin: 03/24/17 08:11 Dose: Not Given Labetalol HCl (Trandate) 200 mg PO BID [facility] Last Admin: 03/23/17 18:20 Dose: 200 mg Levetiracetam (Keppra) 500 mg PO BID [facility] Last Admin: 03/23/17 18:20 Dose: 500 mg Multivitamins (Hexavitamin) 1 tab PO DAILY [facility] Last Admin: 03/23/17 11:21 Dose: 1 tab Pantoprazole Sodium (Protonix Ec Tab) 40 mg PO DAILY [facility] Last Admin: 03/23/17 11:20 Dose: 40 mg Polyethylene Glycol (Miralax) 17 gm PO DAILY [facility] Last Admin: 03/23/17 10:55 Dose: 17 gm - Labs Labs: 03/21/17 06:29 03/23/17 07:40 PT 15.9 SECONDS (9.7-12.2) H 03/21/17 06:29 INR 1.4 03/21/17 06:29 APTT 37 SECONDS (21-34) H 03/13/17 19:39 - Constitutional Appears: Non-toxic, No Acute Distress - Head Exam Head Exam: ATRAUMATIC, NORMAL INSPECTION, NORMOCEPHALIC - Eye Exam Eye Exam: EOMI, PERRL, Scleral icterus Pupil Exam: PERRL - ENT Exam ENT Exam: Mucous Membranes Moist, Normal Exam - Neck Exam Neck Exam: Full ROM, Normal Inspection - Respiratory Exam Respiratory Exam: Clear to Ausculation Bilateral, NORMAL BREATHING PATTERN - Cardiovascular Exam Cardiovascular Exam: RRR, +S1, +S2 - GI/Abdominal Exam GI & Abdominal Exam: Distended, Soft, Normal Bowel Sounds. absent: Tenderness - Rectal Exam Rectal Exam: Deferred - Extremities Exam Extremities Exam: Full ROM, Normal Inspection - Back Exam Back Exam: NORMAL INSPECTION - Neurological Exam Neurological Exam: Alert, Awake, Oriented x3 - Psychiatric Exam Psychiatric exam: Normal Affect, Normal Mood - Skin Skin Exam: Dry, Intact, Warm Additional comments: Jaundice Assessment and Plan - Assessment and Plan (Free Text) Assessment: This is a 76yM with pmhx of DM, HTN, PUD who was admitted with painless jaundice and noted to have a pancreatic head mass with biliary obstruction. Pt with pancreatic head mass s/p EUS and FNB T3N1 with 3 malignant lymph nodes and s/p ERCP with sphincterotomy with a 10mm x40mm fully covered metal stent. 1. Pancreatic Head Mass-Invasive Adenocarcinoma 2. Biliary Obstruction s/p stent 3. Painless Jaundice 4. DM 5. HTN 6. Ileus 7. Poor appetite 8. Constipation Plan: -Invasive Adenocarcinoma Pancreatic head mass-discussed with pt followup with Oncologist and Surgical team at [facility] [place] -Jaundice with elevated TBili s/p stent revision 03/21, discuss with IR about possible liver biopsy to determine hepatic etiology for Hyperbilirubinemia after stent placement -Followup on labs this am and trend TBili and LFTs, INR -Abdominal Xray shows correct stent placement, dilated bowel loops, gas, possible ileus-waiting on radiology report -Poor Appetite encourage supplements -Constipation-Miralax daily and colace, with enemas prn <Karen Orta MD - Last Filed: 03/24/17 11:16> Objective - Vital Signs/Intake and Output Vital Signs (last 24 hours): Temp Pulse Resp BP Pulse Ox 98.3 F 64 18 129/81 95 03/24/17 08:02 03/24/17 08:02 03/24/17 08:02 03/24/17 08:02 03/24/17 08:02 - Medications Medications: Current Medications Amlodipine Besylate (Norvasc) 10 mg PO DAILY [facility] Last Admin: 03/23/17 11:20 Dose: 10 mg Diphenhydramine HCl (Benadryl) 25 mg PO Q6 PRN PRN Reason: Itching / Pruritus Last Admin: 03/14/17 17:19 Dose: 25 mg Docusate Sodium (Colace) 100 mg PO DAILY [facility] Last Admin: 03/23/17 11:20 Dose: 100 mg Enoxaparin Sodium (Lovenox) 40 mg SC DAILY [facility] Last Admin: 03/16/17 09:20 Dose: 40 mg Lactated Ringer's (Lactated Ringer's 500ml) 500 mls @ 75 mls/hr IV .Q6H40M [facility] Last Admin: 03/23/17 06:51 Dose: 75 mls/hr Insulin Aspart (Novolog) 0 unit SC ACHS [facility] PRN Reason: Protocol Last Admin: 03/24/17 08:11 Dose: Not Given Labetalol HCl (Trandate) 200 mg PO BID [facility] Last Admin: 03/23/17 18:20 Dose: 200 mg Levetiracetam (Keppra) 500 mg PO BID [facility] Last Admin: 03/23/17 18:20 Dose: 500 mg Multivitamins (Hexavitamin) 1 tab PO DAILY [facility] Last Admin: 03/23/17 11:21 Dose: 1 tab Pantoprazole Sodium (Protonix Ec Tab) 40 mg PO DAILY [facility] Last Admin: 03/23/17 11:20 Dose: 40 mg Polyethylene Glycol (Miralax) 17 gm PO DAILY [facility] Last Admin: 03/23/17 10:55 Dose: 17 gm - Labs Labs: 03/21/17 06:29 03/23/17 07:40 PT 15.9 SECONDS (9.7-12.2) H 03/21/17 06:29 INR 1.4 03/21/17 06:29 APTT 37 SECONDS (21-34) H 03/13/17 19:39 Attending/Attestation - Attestation I have personally seen and examined this patient.: Yes I have fully participated in the care of the patient.: Yes I have reviewed all pertinent clinical information, including history, physical exam and plan: Yes Notes (Text): 03/24/17 11:13 Patient seen at bedside in am on GI rounds. This is a 76 yr old M with HTN / DM admitted with obstructive jaundice s/p EUs showing pancreatic adenoCA s/p biliary stent exchange due to persistent hyperbilirubinemia following initial stent placement. Pending liver biopsy but no s/s of portal hypertension or abnormal parenchymal contour on imaging. Will discontinue antibiotics to rule out drug induced cholestasis. Follow oncology recommendations
--- NOTE | 2017-03-24 09:28 | PN ---
SUBJECTIVE: The patient is a 76-year-old male seen in his room. Family was around, feeling a little bit better, but still feeling gassy stomach, protruding stomach, sometimes nauseous. No fevers. No chills. No hematuria or hematochezia. No swelling of the legs. No chest pain, palpitations, headache, dizziness. PHYSICAL EXAMINATION VITAL SIGNS: Temperature is 97.6, pulse 65, blood pressure 117/58, respiratory rate 20. HEENT: Head is normocephalic, atraumatic. Eyes: PERRLA. Extraocular muscles intact. Conjunctivae is clear. Nose is patent. Mucous membranes are moist. NECK: Supple. No carotid bruit. No thyromegaly. CHEST: Bilaterally symmetrical HEART: S1, S2 positive. LUNGS: Clear to auscultation. ABDOMEN: Soft. Bowel sounds present.. No organomegaly. EXTREMITIES: No edema, no cyanosis. NEURO: The patient is awake and alert. Moving all four extremities. No focal deficits. MEDICATIONS: Benadryl, multivitamins, Keppra, Lactated Ringers, Lovenox, MiraLAX, Norvasc, NovoLog, Protonix, labetalol, piperacillin/tazobactam. DATA: White blood cell 8.8, hemoglobin 11.3, hematocrit 33.0, platelets 247. Sodium 134, potassium 3.8, BUN 15, creatinine 0.9, glucoseS 215 and 175, calcium 7.8, bilirubin 19.8, AST 92, ALT 86. 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 Endoscopy done, seen by Dr. Rene To. The patient had endoscopic retrograde cholangiopancreatography with removal of the old biliary stent and application of new biliary stent fully covered 10 x 60 mm, still feeling gastroesophageal reflux disease, dyspepsia, tolerating p.o. diet without difficulty. He has hypertension, obstructive jaundice, pancreatic ca ERCP with stent replacement. Biopsy of the lesion shows adenocarcinoma. Continue antibiotics. We will need to get liver function test. Diet as tolerated. The patient has to follow up with medical oncology team at [facility] in [place] as per family's request. Gastrointestinal and deep venous thrombosis prophylaxis. Repeat labs. We will follow up. Christi Dover MD JERE
[2017-03-24] MEDS: Pantoprazole 40 mg EC Tab PO SCH (11:30)
[2017-03-24] MEDS: POLYETHYLENE GLYCOL 3350 17 GM/Dose PACKET PO SCH (11:30)
[2017-03-24] MEDS: Multiple Vitamins Tab PO SCH (11:31)
[2017-03-24 11:52] LABS: BASO # 0.1 K/uL (0.0-0.2); BASO % 0.8 % (0.0-2.0); EOS # 0.1 K/uL (0.0-0.7); EOS % 1.5 % (0.0-4.0); HEMATOCRIT 33.5 % (35.0-51.0); LYMPH # 0.7 K/uL (1.0-4.3); MEAN CELL VOLUME 86.5 fL (80.0-94.0); MEAN CORPUSCULAR HEMOGLOBIN 29.9 pg (27.0-31.0); MEAN CORPUSCULAR HGB CONC 34.5 g/dL (33.0-37.0); MEAN PLATELET VOLUME 9.3 fL (7.2-11.7); MONO # 1.2 K/uL (0.0-0.8); MONO % 12.9 % (0.0-10.0); NRBC % 0.1 % (0.0-2.0); PLATELET COUNT 283 K/uL (130-400); RED CELL DISTRIBUTION WIDTH 17.9 % (11.5-14.5); WHITE BLOOD COUNT 9.3 K/uL (4.8-10.8)
[2017-03-24 11:53] LABS: INR 1.4
[2017-03-24 11:59] LABS: CHLORIDE 98 mmol/L (98-107)
[2017-03-24 12:00] LABS: POTASSIUM 3.4 mmol/L (3.6-5.2); SODIUM 134 mmol/L (132-148)
[2017-03-24 12:02] LABS: ALB/GLOB RATIO 0.7 (1.0-2.1); ALKALINE PHOSPHATASE 128 U/L (38-126); ALT/SGPT 93 U/L (21-72); AST/SGOT 99 U/L (17-59); BILIRUBIN,TOTAL 20.6 mg/dL (0.2-1.3); BLOOD UREA NITROGEN 13 mg/dL (9-20); CALCIUM 7.9 mg/dl (8.6-10.4); CARBON DIOXIDE 22 mmol/L (22-30); GFR AFRICAN-AMERICAN > 60; GLUCOSE,RANDOM 170 mg/dL (75-110); TOTAL PROTEIN 6.4 g/dL (6.3-8.3)
[2017-03-24 12:13] LABS: IMMUNOGLOBULIN G 1059.4 mg/dL (700.0-1600.0)
[2017-03-24 12:14] LABS: IMMUNOGLOBULIN M 102.1 mg/dL (40.0-230.0)
[2017-03-24 12:15] LABS: IMMUNOGLOBULIN A 436.6 mg/dL (70.0-400.0)
[2017-03-24 12:25] LABS: BASOPHIL 1 % (0-2); EOSINOPHIL 3 % (0-4); NEUTROPHIL 70 % (50-75); TOTAL CELLS COUNTED 100
[2017-03-24] MEDS ORDERED: Iodixanol 320 MG/ML 100 ML BOTTLE IV ONE (16:31)
--- NOTE | 2017-03-24 16:57 | CP.PCM.PN ---
Subjective - Date & Time of Evaluation Date of Evaluation: 03/24/17 Time of Evaluation: 11:00 - Subjective Subjective: Patient seen and evaluated No cardiac symptoms Denies chest pain and dyspnea Objective - Vital Signs/Intake and Output Vital Signs (last 24 hours): Temp Pulse Resp BP Pulse Ox 98.4 F 61 20 131/78 100 03/24/17 16:03 03/24/17 16:03 03/24/17 16:03 03/24/17 16:03 03/24/17 16:03 - Medications Medications: Current Medications Amlodipine Besylate (Norvasc) 10 mg PO DAILY [facility] Last Admin: 03/24/17 11:31 Dose: 10 mg Diphenhydramine HCl (Benadryl) 25 mg PO Q6 PRN PRN Reason: Itching / Pruritus Last Admin: 03/14/17 17:19 Dose: 25 mg Docusate Sodium (Colace) 100 mg PO DAILY [facility] Last Admin: 03/24/17 11:31 Dose: 100 mg Enoxaparin Sodium (Lovenox) 40 mg SC DAILY [facility] Last Admin: 03/16/17 09:20 Dose: 40 mg Insulin Aspart (Novolog) 0 unit SC ACHS [facility] PRN Reason: Protocol Last Admin: 03/24/17 13:18 Dose: 1 unit Labetalol HCl (Trandate) 200 mg PO BID [facility] Last Admin: 03/24/17 11:29 Dose: 200 mg Levetiracetam (Keppra) 500 mg PO BID [facility] Last Admin: 03/24/17 11:30 Dose: 500 mg Multivitamins (Hexavitamin) 1 tab PO DAILY [facility] Last Admin: 03/24/17 11:31 Dose: 1 tab Pantoprazole Sodium (Protonix Ec Tab) 40 mg PO DAILY [facility] Last Admin: 03/24/17 11:30 Dose: 40 mg Polyethylene Glycol (Miralax) 17 gm PO DAILY [facility] Last Admin: 03/24/17 11:30 Dose: 17 gm - Labs Labs: 03/24/17 11:31 03/24/17 11:31 PT 16.7 SECONDS (9.7-12.2) H 03/24/17 11:31 INR 1.4 03/24/17 11:31 APTT 37 SECONDS (21-34) H 03/13/17 19:39 - Constitutional Appears: Non-toxic - Head Exam Head Exam: ATRAUMATIC - Eye Exam Eye Exam: EOMI, PERRL, Scleral icterus - ENT Exam ENT Exam: Mucous Membranes Moist - Neck Exam Neck Exam: Full ROM - Respiratory Exam Respiratory Exam: NORMAL BREATHING PATTERN - Cardiovascular Exam Cardiovascular Exam: +S1, +S2. absent: Murmur - GI/Abdominal Exam GI & Abdominal Exam: Distended, Normal Bowel Sounds - Extremities Exam Extremities Exam: Full ROM - Neurological Exam Neurological Exam: Alert, Oriented x3 - Psychiatric Exam Psychiatric exam: Normal Mood Assessment and Plan - Assessment and Plan (Free Text) Assessment: 1. HTN controlled 2. DM 2 3. Cardiac: Normal stress and EF 4. Adeno Ca of Pancreas GI management
--- NOTE | 2017-03-24 17:06 | RAD ---
Abdomen two views History: Distention. Nausea. Comparison: 03/19/2017 Findings: Biliary stent in place. Rounded radiopaque density projects over the left upper abdomen. Distended loops of small bowel seen within the upper to mid abdomen. Fecal retention in the colon. Degenerative changes in the spine and hips. Lobulated opacity at the right lung base, nonspecific. Impression: Biliary stent in place. Rounded radiopaque density projects over the left upper abdomen. Distended loops of small bowel seen within the upper to mid abdomen. Fecal retention in the colon. Degenerative changes in the spine and hips. Lobulated opacity at the right lung base, nonspecific.
--- NOTE | 2017-03-24 23:36 | CP.PCM.PN ---
Subjective - Date & Time of Evaluation Date of Evaluation: 03/24/17 Time of Evaluation: 08:00 - Subjective Subjective: had h/o Anxiety, Arthritis, Asthma, Back Problems, Bronchitis, COPD, Depression, Diabetes, Emphysema, Gastritis, Gastrointestinal Ulcer, HTN, Hypercholesterolemia, Pancreatitis, Pneumonia, Rheumatoid Arthritis Surgical History: Endoscopy (X2) , no more cough , no barrios , dizzyness Objective - Vital Signs/Intake and Output Vital Signs (last 24 hours): Temp Pulse Resp BP Pulse Ox 98.4 F 61 20 131/78 100 03/24/17 16:03 03/24/17 16:03 03/24/17 16:03 03/24/17 16:03 03/24/17 16:03 - Medications Medications: Current Medications Amlodipine Besylate (Norvasc) 10 mg PO DAILY [facility] Last Admin: 03/24/17 11:31 Dose: 10 mg Diphenhydramine HCl (Benadryl) 25 mg PO Q6 PRN PRN Reason: Itching / Pruritus Last Admin: 03/14/17 17:19 Dose: 25 mg Docusate Sodium (Colace) 100 mg PO DAILY [facility] Last Admin: 03/24/17 11:31 Dose: 100 mg Enoxaparin Sodium (Lovenox) 40 mg SC DAILY [facility] Last Admin: 03/16/17 09:20 Dose: 40 mg Insulin Aspart (Novolog) 0 unit SC ACHS [facility] PRN Reason: Protocol Last Admin: 03/24/17 21:26 Dose: Not Given Labetalol HCl (Trandate) 200 mg PO BID [facility] Last Admin: 03/24/17 17:39 Dose: 200 mg Levetiracetam (Keppra) 500 mg PO BID [facility] Last Admin: 03/24/17 17:39 Dose: 500 mg Multivitamins (Hexavitamin) 1 tab PO DAILY [facility] Last Admin: 03/24/17 11:31 Dose: 1 tab Pantoprazole Sodium (Protonix Ec Tab) 40 mg PO DAILY [facility] Last Admin: 03/24/17 11:30 Dose: 40 mg Polyethylene Glycol (Miralax) 17 gm PO DAILY [facility] Last Admin: 03/24/17 11:30 Dose: 17 gm - Labs Labs: 03/24/17 11:31 03/24/17 11:31 PT 16.7 SECONDS (9.7-12.2) H 03/24/17 11:31 INR 1.4 03/24/17 11:31 APTT 37 SECONDS (21-34) H 03/13/17 19:39 - Constitutional Appears: Well - Head Exam Head Exam: ATRAUMATIC, NORMAL INSPECTION, NORMOCEPHALIC - Eye Exam Eye Exam: EOMI, Normal appearance, PERRL Pupil Exam: NORMAL ACCOMODATION, PERRL - ENT Exam ENT Exam: Mucous Membranes Moist, Normal Exam - Neck Exam Neck Exam: Full ROM, Normal Inspection. absent: Lymphadenopathy - Respiratory Exam Respiratory Exam: Clear to Ausculation Bilateral, NORMAL BREATHING PATTERN - Cardiovascular Exam Cardiovascular Exam: REGULAR RHYTHM, +S1, +S2. absent: Murmur - GI/Abdominal Exam GI & Abdominal Exam: Soft, Normal Bowel Sounds. absent: Tenderness - Rectal Exam Rectal Exam: NORMAL INSPECTION - Exam Exam: Circumcision, NORMAL INSPECTION External exam: NORMAL EXTERNAL EXAM Speculum exam: NORMAL SPECULUM EXAM Bimanual exam: NORMAL BIMANUAL EXAM - Extremities Exam Extremities Exam: Full ROM, Normal Capillary Refill, Normal Inspection. absent : Joint Swelling, Pedal Edema - Back Exam Back Exam: NORMAL INSPECTION - Neurological Exam Neurological Exam: Alert, Awake, CN II-XII Intact, Normal Gait, Oriented x3 - Psychiatric Exam Psychiatric exam: Normal Affect, Normal Mood - Skin Skin Exam: Dry, Intact, Normal Color, Warm Assessment and Plan (1) Biliary obstruction Status: Acute (2) Chest pain Status: Acute (3) Diabetes Status: Acute (4) HTN (hypertension) Status: Acute (5) Pancreatic abnormality Status: Acute (6) Seizure Status: Acute - Assessment and Plan (Free Text) Assessment: Assessment: This is a 76yM with pmhx of DM, HTN, PUD who was admitted with painless jaundice and noted to have a pancreatic head mass with biliary obstruction. Pt with pancreatic head mass s/p EUS and FNB T3N1 with 3 malignant lymph nodes and s/p ERCP with sphincterotomy with a 10mm x40mm fully covered metal stent. 1. Pancreatic Head Mass-Invasive Adenocarcinoma 2. Biliary Obstruction s/p stent 3. Painless Jaundice 4. DM 5. HTN 6. Ileus 7. Poor appetite 8. Constipation Plan: -Invasive Adenocarcinoma Pancreatic head mass-discussed with pt followup with Oncologist and Surgical team at [facility] [place] -Jaundice with elevated TBili s/p stent revision 03/21, discuss with IR about possible liver biopsy to determine hepatic etiology for Hyperbilirubinemia after stent placement -Followup on labs this am and trend TBili and LFTs, INR -Abdominal Xray shows correct stent placement, dilated bowel loops, gas, possible ileus-waiting on radiology report -Poor Appetite encourage supplements -Constipation-Miralax daily and colace, with enemas prn d/d with the family . many family members sitting on the bed side , all questions answered
[2017-03-25] MEDS ORDERED: Potassium Chloride 20 mEq ER Tab PO ONE (00:44)
[2017-03-25 07:19] LABS: INR 1.5
[2017-03-25] MEDS: (Novolog) Insulin Aspart, Recombinant 100 u/ml 10 ml vial SC SCH ×4 (08:34→21:45)
--- NOTE | 2017-03-25 09:25 | CP.PCM.PN ---
<Amarilis Nieto - Last Filed: 03/25/17 09:22> Subjective - Date & Time of Evaluation Date of Evaluation: 03/25/17 Time of Evaluation: 06:30 - Subjective Subjective: GI Fellow PGY4 Progress Note Pt seen and evaluated at beside, says still has no appetite with abdominal boating. Very small BM this am but denies nausea, vomiting, fevers or chills. Pt understands plan for liver biopsy today and is npo. ROS: A 12pt ROS was obtained and was negative except as above. Objective - Vital Signs/Intake and Output Vital Signs (last 24 hours): Temp Pulse Resp BP Pulse Ox 98.3 F 64 18 129/76 97 03/25/17 07:15 03/25/17 07:15 03/25/17 07:15 03/25/17 07:15 03/25/17 07:15 Intake and Output: 03/25/17 03/25/17 06:59 18:59 Intake Total 200 Balance 200 - Medications Medications: Current Medications Amlodipine Besylate (Norvasc) 10 mg PO DAILY [facility] Last Admin: 03/24/17 11:31 Dose: 10 mg Diphenhydramine HCl (Benadryl) 25 mg PO Q6 PRN PRN Reason: Itching / Pruritus Last Admin: 03/14/17 17:19 Dose: 25 mg Docusate Sodium (Colace) 100 mg PO DAILY [facility] Last Admin: 03/24/17 11:31 Dose: 100 mg Enoxaparin Sodium (Lovenox) 40 mg SC DAILY [facility] Last Admin: 03/16/17 09:20 Dose: 40 mg Insulin Aspart (Novolog) 0 unit SC [facility] PRN Reason: Protocol Last Admin: 03/25/17 08:34 Dose: 1 unit Labetalol HCl (Trandate) 200 mg PO BID [facility] Last Admin: 03/24/17 17:39 Dose: 200 mg Lactulose (Enulose) 20 gm PO ONCE ONE Stop: 03/25/17 13:01 Levetiracetam (Keppra) 500 mg PO BID [facility] Last Admin: 03/24/17 17:39 Dose: 500 mg Multivitamins (Hexavitamin) 1 tab PO DAILY [facility] Last Admin: 03/24/17 11:31 Dose: 1 tab Pantoprazole Sodium (Protonix Ec Tab) 40 mg PO DAILY [facility] Last Admin: 03/24/17 11:30 Dose: 40 mg Polyethylene Glycol (Miralax) 17 gm PO DAILY [facility] Last Admin: 03/24/17 11:30 Dose: 17 gm - Labs Labs: 03/24/17 11:31 03/24/17 11:31 PT 16.8 SECONDS (9.7-12.2) H 03/25/17 07:06 INR 1.5 03/25/17 07:06 APTT 37 SECONDS (21-34) H 03/13/17 19:39 - Constitutional Appears: No Acute Distress, Chronically Ill - Head Exam Head Exam: ATRAUMATIC, NORMAL INSPECTION, NORMOCEPHALIC - Eye Exam Eye Exam: EOMI, Normal appearance, PERRL Pupil Exam: PERRL - ENT Exam ENT Exam: Mucous Membranes Moist, Normal Exam - Neck Exam Neck Exam: Full ROM, Normal Inspection - Respiratory Exam Respiratory Exam: Clear to Ausculation Bilateral, NORMAL BREATHING PATTERN - Cardiovascular Exam Cardiovascular Exam: REGULAR RHYTHM, RRR, +S1, +S2 - GI/Abdominal Exam GI & Abdominal Exam: Distended, Soft, Normal Bowel Sounds. absent: Tenderness - Rectal Exam Rectal Exam: Deferred - Extremities Exam Extremities Exam: Full ROM, Normal Inspection - Back Exam Back Exam: NORMAL INSPECTION - Neurological Exam Neurological Exam: Alert, Awake, Oriented x3 - Psychiatric Exam Psychiatric exam: Normal Affect, Normal Mood - Skin Skin Exam: Dry, Intact, Warm Additional comments: Jaundice Assessment and Plan - Assessment and Plan (Free Text) Assessment: This is a 76yM with pmhx of DM, HTN, PUD who was admitted with painless jaundice and noted to have a pancreatic head mass with biliary obstruction. Pt with pancreatic head mass s/p EUS and FNB T3N1 with 3 malignant lymph nodes and s/p ERCP with sphincterotomy with a 10mm x40mm fully covered metal stent. 1. Pancreatic Head Mass-Invasive Adenocarcinoma 2. Biliary Obstruction s/p stent 3. Painless Jaundice 4. Ascities 5. DM 6. HTN 7. Ileus 8. Poor appetite 9. Constipation Plan: -Invasive Adenocarcinoma Pancreatic head mass- pt to followup with Oncologist and Surgical team at [facility] -Jaundice with elevated TBili s/p stent revision 03/21, plan for liver biopsy today to determine hepatic etiology for Hyperbilirubinemia with hx of alcohol abuse -Ascites-requested IR for a paracentesis prior to liver biopsy -Poor Appetite encourage supplements -Constipation with Abdominal xray showing moderate stool and dilated small bowel loops- will add lactulose to bowel regimen if no relief will add mag citrate tomorrow. <Yousuf López - Last Filed: 03/25/17 11:59> Objective - Vital Signs/Intake and Output Vital Signs (last 24 hours): Temp Pulse Resp BP Pulse Ox 98.3 F 64 18 129/76 97 03/25/17 07:15 03/25/17 07:15 03/25/17 07:15 03/25/17 07:15 03/25/17 07:15 Intake and Output: 03/25/17 03/25/17 06:59 18:59 Intake Total 200 Balance 200 - Medications Medications: Current Medications Amlodipine Besylate (Norvasc) 10 mg PO DAILY [facility] Last Admin: 03/25/17 11:29 Dose: 10 mg Diphenhydramine HCl (Benadryl) 25 mg PO Q6 PRN PRN Reason: Itching / Pruritus Last Admin: 03/14/17 17:19 Dose: 25 mg Docusate Sodium (Colace) 100 mg PO DAILY [facility] Last Admin: 03/25/17 11:30 Dose: 100 mg Enoxaparin Sodium (Lovenox) 40 mg SC DAILY [facility] Last Admin: 03/16/17 09:20 Dose: 40 mg Insulin Aspart (Novolog) 0 unit SC ACHS [facility] PRN Reason: Protocol Last Admin: 03/25/17 08:34 Dose: 1 unit Labetalol HCl (Trandate) 200 mg PO BID [facility] Last Admin: 03/25/17 11:31 Dose: 200 mg Lactulose (Enulose) 20 gm PO ONCE ONE Stop: 03/25/17 13:01 Levetiracetam (Keppra) 500 mg PO BID [facility] Last Admin: 03/25/17 11:30 Dose: 500 mg Multivitamins (Hexavitamin) 1 tab PO DAILY [facility] Last Admin: 03/25/17 11:30 Dose: 1 tab Pantoprazole Sodium (Protonix Ec Tab) 40 mg PO DAILY [facility] Last Admin: 03/25/17 11:30 Dose: 40 mg Polyethylene Glycol (Miralax) 17 gm PO DAILY [facility] Last Admin: 03/25/17 11:31 Dose: 17 gm - Labs Labs: 03/24/17 11:31 03/24/17 11:31 PT 16.8 SECONDS (9.7-12.2) H 03/25/17 07:06 INR 1.5 03/25/17 07:06 APTT 37 SECONDS (21-34) H 03/13/17 19:39 Attending/Attestation - Attestation I have personally seen and examined this patient.: Yes I have fully participated in the care of the patient.: Yes I have reviewed all pertinent clinical information, including history, physical exam and plan: Yes Notes (Text): 03/25/17 11:55 I have seen and examined patient with GI fellow. No acute events overnight. He continues to endorse abdominal bloating, constipation, and generalized discomfort. He denies nausea, vomiting, fever/chills. He had one small bowel movement this morning and is tolerating scant amount of PO diet without difficulty. Review of vitals from today are normal. DM / HTN Pancreatic adenocarcinoma Obstructive jaundice, s/p ERCP with biliary stent placement Persistent hyperbilirubinemia - likely underlying hepatic dysfunction - Diet as tolerated - Patient to undergo diagnostic paracentesis and liver biopsy today for further evaluation - Continue to monitor LFTs, bilirubin - Add lactulose to bowel regimen to give relief with constipation - Follow up oncology recommendations - Overall patient prognosis is poor, following hospital discharge patient to follow up with surgical/oncology team at [facility] as per family request
[2017-03-25] MEDS ORDERED: Midazolam 2 MG/2 ML VIAL ONE (10:21)
[2017-03-25] MEDS ORDERED: Propofol 10 mg/ml Inj (20 ML) ONE (10:21)
[2017-03-25] MEDS ORDERED: Absorbable Gelatin Sponge Size 12-7 ONE (10:47)
--- NOTE | 2017-03-25 11:00 | PCM.SURG1 ---
Surgeon's Initial Post Op Note - Surgeon's Notes Surgeon: Napoleon Rojas MD Animal Shelter Manager: None Type of Anesthesia: IV Sedation Pre-Operative Diagnosis: Abnromal LFTs, pancreatic cancer Operative Findings: US showed a moderate amount ascites. Post-Operative Diagnosis: Abnromal LFTs, pancreatic cancer Operation Performed: US guided paracentesis. US guided core biopsy of liver. Three 18 g core specimen obtained and sent for routine histology. Specimen/Specimens Removed: 1.5 liters of greenish yellow fluid; Three 18- gauge core specimen. Estimated Blood Loss: EBL {In ML}: 3 Blood Products Given: N/A Drains Used: No Drains Post-Op Condition: Fair Date of Surgery/Procedure: 03/25/17 Time of Surgery/Procedure: 11:00
[2017-03-25] MEDS: Pantoprazole 40 mg EC Tab PO SCH (11:30)
[2017-03-25] MEDS: Multiple Vitamins Tab PO SCH (11:30)
[2017-03-25] MEDS: POLYETHYLENE GLYCOL 3350 17 GM/Dose PACKET PO SCH (11:31)
[2017-03-25 12:39] LABS: BODY FLUID TYPE PERITONEAL
--- NOTE | 2017-03-25 12:47 | CT ---
CT abdomen and pelvis without/with IV contrast Indication: Elevated T bili Technique: Contiguous axial images of the abdomen without & with IV contrast utilizing liver protocol. Coronal and Sagittal reformats generated and reviewed. This CT exam was performed using 1 or more of the falling dose reduction techniques: Automated exposure control, adjustment of the MAA and/or kV according to patient size, and/or use of iterative reconstruction technique. Contrast: Oral contrast was administered. 100 mL Visipaque. Radiation dose: Total exam DLP = 2044.22 MGy-cm. Comparison: Abdominal ultrasound performed 03/11/17, CT pancreatic protocol performed 03/11/17 Findings: Small bilateral pleural effusions and associated consolidations. Granulomas, right lung base. Small hiatal hernia. No visible pneumothorax. Hypoattenuation of the liver compatible with hepatic steatosis. Mildly nodular hepatic contour. Mild hepatomegaly. Decompressed gallbladder. Common bile duct stent. Pneumobilia. Masses identified at the head of the pancreas with atrophy of the pancreatic body and tail. The pancreatic duct appears dilated distally (Body and tail) and ectatic. Borderline splenomegaly. The adrenal glands appear unremarkable. Malrotated right kidney. Small left parapelvic cysts. Nonobstructing left renal calculus. No hydronephrosis. The kidneys enhance symmetrically. Abdominal ascites, small to moderate. No definite free air. The stomach is nondistended. Lack of oral contrast limits evaluation for bowel pathology. Mild to adrenal wall thickening. There is no definite free air. Anasarca. Degenerative changes of the spine. Impression: Common bile duct stent. Pneumobilia. Pancreatic head mass with atrophy involving the pancreatic body and tail. Dilated pancreatic duct at the level of the pancreatic body and tail. Appearance consistent with malignant neoplasm. Correlate clinically. Hepatic steatosis. Mildly nodular hepatic contour. Mild hepatomegaly. Borderline splenomegaly. Contracted gallbladder. Mild to moderate abdominal ascites. Bilateral pleural effusions and associated consolidations. Preliminary impression was provided by virtual radiologic.
[2017-03-25 13:10] LABS: BF GROSS APPEARANCE SL CLOUDY (CLEAR)
[2017-03-25 15:45] VITALS: RESP 20
--- NOTE | 2017-03-26 00:25 | CP.PCM.PN ---
Subjective - Date & Time of Evaluation Date of Evaluation: 03/25/17 Time of Evaluation: 13:10 - Subjective Subjective: Patient seen and evaluated No cardiac events Possible transfer to [place] for Whipple's surgery for Pancreatic Ca Objective - Vital Signs/Intake and Output Vital Signs (last 24 hours): Temp Pulse Resp BP Pulse Ox 98 F 63 20 114/63 94 L 03/25/17 15:44 03/25/17 15:44 03/25/17 15:44 03/25/17 15:44 03/25/17 15:44 - Medications Medications: Current Medications Amlodipine Besylate (Norvasc) 10 mg PO DAILY [facility] Last Admin: 03/25/17 11:29 Dose: 10 mg Diphenhydramine HCl (Benadryl) 25 mg PO Q6 PRN PRN Reason: Itching / Pruritus Last Admin: 03/14/17 17:19 Dose: 25 mg Docusate Sodium (Colace) 100 mg PO DAILY [facility] Last Admin: 03/25/17 11:30 Dose: 100 mg Enoxaparin Sodium (Lovenox) 40 mg SC DAILY [facility] Last Admin: 03/16/17 09:20 Dose: 40 mg Insulin Aspart (Novolog) 0 unit SC ACHS [facility] PRN Reason: Protocol Last Admin: 03/25/17 21:45 Dose: Not Given Labetalol HCl (Trandate) 200 mg PO BID [facility] Last Admin: 03/25/17 18:06 Dose: 200 mg Levetiracetam (Keppra) 500 mg PO BID [facility] Last Admin: 03/25/17 18:06 Dose: 500 mg Multivitamins (Hexavitamin) 1 tab PO DAILY [facility] Last Admin: 03/25/17 11:30 Dose: 1 tab Pantoprazole Sodium (Protonix Ec Tab) 40 mg PO DAILY [facility] Last Admin: 03/25/17 11:30 Dose: 40 mg Polyethylene Glycol (Miralax) 17 gm PO DAILY [facility] Last Admin: 03/25/17 11:31 Dose: 17 gm - Labs Labs: 03/24/17 11:31 03/24/17 11:31 PT 16.8 SECONDS (9.7-12.2) H 03/25/17 07:06 INR 1.5 03/25/17 07:06 APTT 37 SECONDS (21-34) H 03/13/17 19:39
[2017-03-26] MEDS: (Novolog) Insulin Aspart, Recombinant 100 u/ml 10 ml vial SC SCH ×2 (08:45→12:30)
--- NOTE | 2017-03-26 09:16 | CP.PCM.PN ---
Subjective - Date & Time of Evaluation Date of Evaluation: 03/26/17 Time of Evaluation: 09:16 - Subjective Subjective: PT HAD BM THIS MORNING AND WAS D/C BY DR. ROBLEDO. PT TO GO HOME WITH FAMILY TODAY AND [facility] ALL NEW RX DISCUSSED WITH PT AND . PER FAMILY THEY WERE INSTRUCTED ON LANTUS FLEX PEN USE BY ALBERAT GONZALEZ. RX GIVEN FOR BEDSIDE COMMODE AND WALKER. ALL F/U AND D/C INFORMATION DISCUSSED AT LENGTH. NO FURTHER ORDERS. Objective - Vital Signs/Intake and Output Vital Signs (last 24 hours): Temp Pulse Resp BP Pulse Ox 97.7 F 62 20 133/67 100 03/26/17 07:45 03/26/17 07:45 03/26/17 07:45 03/26/17 07:45 03/26/17 07:45 Intake and Output: 03/26/17 03/26/17 06:59 18:59 Intake Total 120 Balance 120 - Medications Medications: Current Medications Amlodipine Besylate (Norvasc) 10 mg PO DAILY [facility] Last Admin: 03/25/17 11:29 Dose: 10 mg Diphenhydramine HCl (Benadryl) 25 mg PO Q6 PRN PRN Reason: Itching / Pruritus Last Admin: 03/14/17 17:19 Dose: 25 mg Docusate Sodium (Colace) 100 mg PO DAILY [facility] Last Admin: 03/25/17 11:30 Dose: 100 mg Enoxaparin Sodium (Lovenox) 40 mg SC DAILY [facility] Last Admin: 03/16/17 09:20 Dose: 40 mg Insulin Aspart (Novolog) 0 unit SC [facility] PRN Reason: Protocol Last Admin: 03/26/17 08:45 Dose: 1 unit Labetalol HCl (Trandate) 200 mg PO BID [facility] Last Admin: 03/25/17 18:06 Dose: 200 mg Levetiracetam (Keppra) 500 mg PO BID [facility] Last Admin: 03/25/17 18:06 Dose: 500 mg Multivitamins (Hexavitamin) 1 tab PO DAILY [facility] Last Admin: 03/25/17 11:30 Dose: 1 tab Pantoprazole Sodium (Protonix Ec Tab) 40 mg PO DAILY [facility] Last Admin: 03/25/17 11:30 Dose: 40 mg Polyethylene Glycol (Miralax) 17 gm PO DAILY [facility] Last Admin: 03/25/17 11:31 Dose: 17 gm - Labs Labs: 03/24/17 11:31 03/24/17 11:31 PT 16.8 SECONDS (9.7-12.2) H 03/25/17 07:06 INR 1.5 03/25/17 07:06 APTT 37 SECONDS (21-34) H 03/13/17 19:39
--- NOTE | 2017-03-26 10:27 | US ---
Date of Procedure: 03/25/2017 PROCEDURE: Ultrasound-guided paracentesis, CPT 63151 Medications: 7 cc 1% Lidocaine HISTORY: Ascites, abdominal pain, pancreatic cancer TECHNIQUE: Following informed consent , the patient was placed supine on the stretcher and the site was marked. A limited abdominal ultrasound was performed that showed a large amount of intra-abdominal fluid. Procedural time out was called and the Pt's abdomen was marked and prepped and draped in the usual sterile fashion. Ultrasound-guided large volume paracentesis performed. A total of 1.2 liters of greenish colored fluid was removed without complication. Fluid specimen was sent for culture, sensitivity, cytology and chemistries. IMPRESSION: Ultrasound-guided paracentesis.
--- NOTE | 2017-03-26 10:28 | US ---
PROCEDURE: Date of procedure: 03/25/2017 Procedure: 1. Ultrasound-guided core liver biopsy, CPT 40221 2. Ultrasound guidance for biopsy, 58203 Medications: The patient is sedated by the anesthesiologist along with physiologic monitoring. HISTORY: Abnormal LFTs, elevated bilirubin, pancreatic mass. TECHNIQUE: Following informed consent and procedure time-out, the patient was placed supine on bed and limited ultrasound showed a normal appearing left hepatic lobe. After patient abdomen was prepped and draped in the usual sterile fashion and the skin was anesthetized with 2% lidocaine, an 18 gauge core needle was advanced percutaneously under direct ultrasound guidance into the left hepatic lobe. Upon confirmation of needle position, three 18 gauge core specimens were obtained and sent for routine pathology. The biopsy to tract was then embolized with Gelfoam. A post biopsy ultrasound showed no hematoma. A dressing was applied. IMPRESSION: Ultrasound-guided core biopsy left hepatic lobe. There were no immediate complications.
[2017-03-26] MEDS: POLYETHYLENE GLYCOL 3350 17 GM/Dose PACKET PO SCH (10:36)
[2017-03-26] MEDS: Multiple Vitamins Tab PO SCH (10:36)
[2017-03-26] MEDS: Pantoprazole 40 mg EC Tab PO SCH (10:36)
--- NOTE | 2017-03-26 10:50 | CP.PCM.PN ---
Subjective - Date & Time of Evaluation Date of Evaluation: 03/25/17 Time of Evaluation: 07:00 - Subjective Subjective: Pt seen and evaluated at beside, says still has no appetite with abdominal boating. Very small BM this am but denies nausea, vomiting, fevers or chills. Pt understands plan for liver biopsy today and is npo. ROS: A 12pt ROS was obtained and was negative except as above. Objective - Vital Signs/Intake and Output Vital Signs (last 24 hours): Temp Pulse Resp BP Pulse Ox 97.7 F 66 20 120/74 100 03/26/17 07:45 03/26/17 10:35 03/26/17 07:45 03/26/17 10:35 03/26/17 07:45 Intake and Output: 03/26/17 03/26/17 06:59 18:59 Intake Total 120 Balance 120 - Medications Medications: Current Medications Amlodipine Besylate (Norvasc) 10 mg PO DAILY [facility] Last Admin: 03/26/17 10:36 Dose: 10 mg Diphenhydramine HCl (Benadryl) 25 mg PO Q6 PRN PRN Reason: Itching / Pruritus Last Admin: 03/14/17 17:19 Dose: 25 mg Docusate Sodium (Colace) 100 mg PO DAILY [facility] Last Admin: 03/26/17 10:36 Dose: 100 mg Enoxaparin Sodium (Lovenox) 40 mg SC DAILY [facility] Last Admin: 03/16/17 09:20 Dose: 40 mg Insulin Aspart (Novolog) 0 unit SC ACHS [facility] PRN Reason: Protocol Last Admin: 03/26/17 08:45 Dose: 1 unit Labetalol HCl (Trandate) 200 mg PO BID [facility] Last Admin: 03/26/17 10:36 Dose: 200 mg Levetiracetam (Keppra) 500 mg PO BID [facility] Last Admin: 03/26/17 10:36 Dose: 500 mg Multivitamins (Hexavitamin) 1 tab PO DAILY [facility] Last Admin: 03/26/17 10:36 Dose: 1 tab Pantoprazole Sodium (Protonix Ec Tab) 40 mg PO DAILY [facility] Last Admin: 03/26/17 10:36 Dose: 40 mg Polyethylene Glycol (Miralax) 17 gm PO DAILY [facility] Last Admin: 03/26/17 10:36 Dose: 17 gm - Labs Labs: 03/24/17 11:31 03/24/17 11:31 PT 16.8 SECONDS (9.7-12.2) H 03/25/17 07:06 INR 1.5 03/25/17 07:06 APTT 37 SECONDS (21-34) H 03/13/17 19:39 - Constitutional Appears: Well - Head Exam Head Exam: ATRAUMATIC, NORMAL INSPECTION, NORMOCEPHALIC - Eye Exam Eye Exam: EOMI, Normal appearance, PERRL Pupil Exam: NORMAL ACCOMODATION, PERRL - ENT Exam ENT Exam: Mucous Membranes Moist, Normal Exam - Neck Exam Neck Exam: Full ROM, Normal Inspection. absent: Lymphadenopathy - Respiratory Exam Respiratory Exam: Clear to Ausculation Bilateral, NORMAL BREATHING PATTERN - Cardiovascular Exam Cardiovascular Exam: REGULAR RHYTHM, +S1, +S2. absent: Murmur - GI/Abdominal Exam GI & Abdominal Exam: Tenderness, Normal Bowel Sounds Assessment and Plan (1) Biliary obstruction Status: Acute (2) Chest pain Status: Acute (3) Diabetes Status: Acute (4) HTN (hypertension) Status: Acute (5) Pancreatic abnormality Status: Acute (6) Seizure Status: Acute - Assessment and Plan (Free Text) Assessment: Assessment: This is a 76yM with pmhx of DM, HTN, PUD who was admitted with painless jaundice and noted to have a pancreatic head mass with biliary obstruction. Pt with pancreatic head mass s/p EUS and FNB T3N1 with 3 malignant lymph nodes and s/p ERCP with sphincterotomy with a 10mm x40mm fully covered metal stent. 1. Pancreatic Head Mass-Invasive Adenocarcinoma 2. Biliary Obstruction s/p stent 3. Painless Jaundice 4. Ascities 5. DM 6. HTN 7. Ileus 8. Poor appetite 9. Constipation d/d with family , they are aware of pt condition
[2017-03-26 11:09] LABS: HEMATOCRIT 33.1 % (35.0-51.0); MEAN CORPUSCULAR HEMOGLOBIN 29.8 pg (27.0-31.0); MEAN CORPUSCULAR HGB CONC 33.7 g/dL (33.0-37.0); MEAN PLATELET VOLUME 9.3 fL (7.2-11.7); RED CELL DISTRIBUTION WIDTH 18.6 % (11.5-14.5); WHITE BLOOD COUNT 8.9 K/uL (4.8-10.8)
[2017-03-26 11:16] LABS: MEAN CELL VOLUME 88.5 fL (80.0-94.0)
[2017-03-26 11:18] LABS: CHLORIDE 97 mmol/L (98-107); SODIUM 134 mmol/L (132-148)
[2017-03-26 11:19] LABS: POTASSIUM 3.8 mmol/L (3.6-5.2)
--- NOTE | 2017-03-26 11:20 | CP.PCM.PN ---
<Amarilis Nieto - Last Filed: 03/26/17 11:15> Subjective - Date & Time of Evaluation Date of Evaluation: 03/26/17 Time of Evaluation: 06:10 - Subjective Subjective: GI Fellow PGY4 Progress Note Pt seen and evaluated at bedside, no issues overnight. Pt says feels a little less bloated after paracentesis with 1.5L of peritoneal fluid drained. Pt did have a small BM after lactulose but still reports poor appetite. No fevers, chills, nausea or vomiting. [facility] ROS: A 12pt ROS was negative except as above. Objective - Vital Signs/Intake and Output Vital Signs (last 24 hours): Temp Pulse Resp BP Pulse Ox 97.7 F 66 20 120/74 100 03/26/17 07:45 03/26/17 10:35 03/26/17 07:45 03/26/17 10:35 03/26/17 07:45 Intake and Output: 03/26/17 03/26/17 06:59 18:59 Intake Total 120 Balance 120 - Medications Medications: Current Medications Amlodipine Besylate (Norvasc) 10 mg PO DAILY [facility] Last Admin: 03/26/17 10:36 Dose: 10 mg Diphenhydramine HCl (Benadryl) 25 mg PO Q6 PRN PRN Reason: Itching / Pruritus Last Admin: 03/14/17 17:19 Dose: 25 mg Docusate Sodium (Colace) 100 mg PO DAILY [facility] Last Admin: 03/26/17 10:36 Dose: 100 mg Enoxaparin Sodium (Lovenox) 40 mg SC DAILY [facility] Last Admin: 03/16/17 09:20 Dose: 40 mg Insulin Aspart (Novolog) 0 unit SC ACHS [facility] PRN Reason: Protocol Last Admin: 03/26/17 08:45 Dose: 1 unit Labetalol HCl (Trandate) 200 mg PO BID [facility] Last Admin: 03/26/17 10:36 Dose: 200 mg Levetiracetam (Keppra) 500 mg PO BID [facility] Last Admin: 03/26/17 10:36 Dose: 500 mg Multivitamins (Hexavitamin) 1 tab PO DAILY [facility] Last Admin: 03/26/17 10:36 Dose: 1 tab Pantoprazole Sodium (Protonix Ec Tab) 40 mg PO DAILY [facility] Last Admin: 03/26/17 10:36 Dose: 40 mg Polyethylene Glycol (Miralax) 17 gm PO DAILY [facility] Last Admin: 03/26/17 10:36 Dose: 17 gm - Labs Labs: 03/24/17 11:31 03/24/17 11:31 PT 16.8 SECONDS (9.7-12.2) H 03/25/17 07:06 INR 1.5 03/25/17 07:06 APTT 37 SECONDS (21-34) H 03/13/17 19:39 - Constitutional Appears: Non-toxic, No Acute Distress - Head Exam Head Exam: ATRAUMATIC, NORMAL INSPECTION, NORMOCEPHALIC - Eye Exam Eye Exam: EOMI, PERRL, Scleral icterus Pupil Exam: PERRL - ENT Exam ENT Exam: Mucous Membranes Moist, Normal Exam - Neck Exam Neck Exam: Full ROM, Normal Inspection - Respiratory Exam Respiratory Exam: Clear to Ausculation Bilateral, NORMAL BREATHING PATTERN - Cardiovascular Exam Cardiovascular Exam: RRR, +S1, +S2 - GI/Abdominal Exam GI & Abdominal Exam: Soft, Normal Bowel Sounds. absent: Tenderness, Organomegaly - Rectal Exam Rectal Exam: Deferred - Extremities Exam Extremities Exam: Full ROM, Normal Inspection - Back Exam Back Exam: NORMAL INSPECTION - Neurological Exam Neurological Exam: Alert, Awake, Oriented x3 - Psychiatric Exam Psychiatric exam: Normal Affect, Normal Mood - Skin Skin Exam: Dry, Intact, Warm Additional comments: Jaundice Assessment and Plan - Assessment and Plan (Free Text) Assessment: This is a 76yM with pmhx of DM, HTN, PUD who was admitted with painless jaundice and noted to have a pancreatic head mass with biliary obstruction. Pt with pancreatic head mass s/p EUS and FNB T3N1 with 3 malignant lymph nodes and s/p ERCP with sphincterotomy with a 10mm x40mm fully covered metal stent. 1. Pancreatic Head Mass-Invasive Adenocarcinoma 2. Biliary Obstruction s/p stent 3. Painless Jaundice 4. Ascities 5. DM 6. HTN 7. Poor appetite 8. Constipation Plan: -Invasive Adenocarcinoma Pancreatic head mass- pt to followup with Oncologist and Surgical team as an outpt -Jaundice with elevated TBili s/p stent revision 03/21, s/p liver biopsy to determine hepatic etiology for Hyperbilirubinemia with hx of alcohol abuse- pathology results pending, okay to followup outpt for results -Ascites s/p paracentesis, no SBP -Poor Appetite encourage supplements -Constipation continue aggressive bowel regimen -Discussed with pt's family, okay for discharge home today and to followup as an outpt with pathology results and oncology for further plan of care <Benito Choe - Last Filed: 03/26/17 15:50> Objective - Vital Signs/Intake and Output Vital Signs (last 24 hours): Temp Pulse Resp BP Pulse Ox 98.5 F 62 20 107/71 96 03/26/17 12:10 03/26/17 12:10 03/26/17 12:10 03/26/17 12:10 03/26/17 12:10 Intake and Output: 03/26/17 03/26/17 06:59 18:59 Intake Total 120 400 Balance 120 400 - Labs Labs: 03/26/17 11:05 03/26/17 11:05 PT 16.8 SECONDS (9.7-12.2) H 03/25/17 07:06 INR 1.5 03/25/17 07:06 APTT 37 SECONDS (21-34) H 03/13/17 19:39 Attending/Attestation - Attestation I have personally seen and examined this patient.: Yes I have fully participated in the care of the patient.: Yes I have reviewed all pertinent clinical information, including history, physical exam and plan: Yes Notes (Text): 03/26/17 15:47 76 year old male with h/o DM, HTN, PUD, h/o ETOH abuse admitted with jaundice, found to have pancreatic adenocarcinoma, also likely etoh cirrhosis. 1. Pancreatic adenocarcinoma 2. Biliary obstruction 3. Ascites 4. Jaundice 5. Alcohol abuse Plan: -T3N1M0 Pancreatic adenocarcinoma -s/p ERCP with 10 mm x 60 mm fully covered metal stent with good positioning confirmed on CT -persistent jaundice as well as new onset ascites in the setting of prior h/o etoh abuse -s/p liver biopsy and paracentesis -no SBP -suspect alcoholic cirrhosis -await biopsy results -ok for discharge from GI standpoint with close outpatient follow up
[2017-03-26 11:21] LABS: ALB/GLOB RATIO 0.6 (1.0-2.1); ALKALINE PHOSPHATASE 140 U/L (38-126); AST/SGOT 105 U/L (17-59); BILIRUBIN,TOTAL 17.9 mg/dL (0.2-1.3); BLOOD UREA NITROGEN 11 mg/dL (9-20); CARBON DIOXIDE 25 mmol/L (22-30); GFR AFRICAN-AMERICAN > 60; TOTAL PROTEIN 6.4 g/dL (6.3-8.3)
[2017-03-26 11:22] LABS: ALT/SGPT 91 U/L (21-72); CALCIUM 7.9 mg/dl (8.6-10.4); GLUCOSE,RANDOM 170 mg/dL (75-110)
[2017-03-26 11:36] LABS: BASO # 0.1 K/uL (0.0-0.2); EOS # 0.1 K/uL (0.0-0.7); LYMPH # 1.4 K/uL (1.0-4.3); MONO # 0.5 K/uL (0.0-0.8)
[2017-03-26 12:14] VITALS: BP 107/71; PULSE 62; TEMP 98.5; O2SAT 96
[2017-03-27 01:18] LABS: LKM-1 Ab (IgG) <=20.0 U (<=20.0)
--- NOTE | 2017-04-24 14:58 | DS ---
The patient was admitted by Dr. John Wray for chest pain. The patient's H and P was done by Dr. John Wray. The patient was seen by courtney Glass, discharged on 03/26/2017. For more details, see my progress notes of 03/26/2017. Christi Dover MD MTDD
--- NOTE | 2017-05-16 06:47 | EEG ---
EEG REPORT DATE: INDICATION: Seizure like activities. Medications were reviewed. This was an awake and drowsy EEG. TECHNICAL: This is a digitally recorded electroencephalogram. International 10-20 electrode placement system is used for scalp electrode placement. A 16 channels of scalp EEG are recorded. One channel was used for EOG. Another channel was used for ECG. The data were stored digitally and reviewed in reformatted montages for optimal display. BACKGROUND: A 9 to 10 Hz alpha activity was seen, maximal over the posterior head region. These activities are symmetric on both sides. They attenuated with eye opening. Small amounts of beta activities are seen. Photic stimulation was performed and not had a notable affect on the background rhythm. There was a significant amount of EMG muscle artifact noted. DESCRIPTION: No focal slowing was seen. There was 1 temporal lobe spike discharge noted. The patient entered into period of drowsiness and like to sleep. IMPRESSION: This is a probably normal EEG. There was a single left temporal lobe spike discharge and this may represent a potential seizure focus, but this could be a normal finding as well. Clinical correlation is needed. Anurag Mondragon MD
== END 2017-03-26 12:50 | disposition home or self-care (01) | DRG 435 ==
LOC: C.ER 18:18 → C.9E 20:18 → C.6T 22:04
PROVIDERS: ADMIT Internal Medicine; ATTEND Internal Medicine
PROC: 0F798DZ Dilation of Common Bile Duct with Intraluminal Device, Via Natural or Artificial Opening Endoscopic (ICD-10-PCS; 2017-03-17)
PROC: 0FBG4ZX Excision of Pancreas, Percutaneous Endoscopic Approach, Diagnostic (ICD-10-PCS; 2017-03-17)
PROC: 0F798DZ Dilation of Common Bile Duct with Intraluminal Device, Via Natural or Artificial Opening Endoscopic (ICD-10-PCS; 2017-03-21)
PROC: 0FPB8DZ Removal of Intraluminal Device from Hepatobiliary Duct, Via Natural or Artificial Opening Endoscopic (ICD-10-PCS; principal; 2017-03-21 10:20)
DX: C25.0 Malignant neoplasm of head of pancreas (principal); K83.1 Obstruction of bile duct; R18.8 Other ascites; C77.2 Secondary and unspecified malignant neoplasm of intra-abdominal lymph nodes; E88.09 Other disorders of plasma-protein metabolism, not elsewhere classified; R17 Unspecified jaundice; R56.9 Unspecified convulsions; I10 Essential (primary) hypertension; K59.00 Constipation, unspecified; E56.1 Deficiency of vitamin K; K25.9 Gastric ulcer, unspecified as acute or chronic, without hemorrhage or perforation; K29.70 Gastritis, unspecified, without bleeding; K44.9 Diaphragmatic hernia without obstruction or gangrene; K29.80 Duodenitis without bleeding; F10.10 Alcohol abuse, uncomplicated; E11.65 Type 2 diabetes mellitus with hyperglycemia; E83.51 Hypocalcemia; D64.9 Anemia, unspecified; K21.9 Gastro-esophageal reflux disease without esophagitis; R10.13 Epigastric pain; R94.5 Abnormal results of liver function studies

== ENCOUNTER → 2019-01-05 | Outpatient (CLI) | payer MEDICARE | LOC: C.EKG 09:44 ==